=== PATIENT | female | born 1970 | race Caucasian/White ===

== ENCOUNTER 2016-11-23 08:00 | Inpatient (IN) | payer OTHER ==
[~2016-11-23] VITALS: Ht 139.7 cm; Wt 68.5 kg
[~2016-11-23 08:00] MED LIST: CARV12.579 PO; FER325 PO; FURO-110 PO; GLIM4TAB PO; HYDR-3671 PO; ISOS10TA2 PO; METF1000 PO; SITA100T8 PO; VALS40TA2 PO
[2016-11-23 09:31] VITALS: BMI 31.6
[2016-11-25 09:44] LABS: BASOPHIL # 0.1 10^3/ul (0.0-0.1); BASOPHILS % 0.9 % (0.0-2.0); EOSINOPHILS # 0.1 10^3/ul (0.0-0.5); EOSINOPHILS % 1.5 % (0.0-7.0); HEMATOCRIT 31.5 % (37.0-47.0); HEMOGLOBIN 10.3 g/dl (12.0-16.0); LYMPHOCYTES # 2.2 10^3/ul (0.8-2.9); LYMPHOCYTES % 27.6 % (15.0-51.0); MEAN CORPUSCULAR HEMOGLOBIN 26.4 pg (29.0-33.0); MEAN CORPUSCULAR HGB CONC 32.8 g/dl (32.0-37.0); MEAN CORPUSCULAR VOLUME 80.3 fl (82.0-101.0); MEAN PLATELET VOLUME 8.5 fl (7.4-10.4); MONOCYTE # 0.4 10^3/ul (0.3-0.9); MONOCYTES % 5.3 % (0.0-11.0); NEUTROPHILS % 64.7 % (39.0-77.0); PLATELET COUNT 355 10^3/UL (140-440); RED BLOOD COUNT 3.92 10^6/ul (4.20-5.40); RED CELL DISTRIBUTION WIDTH 14.9 % (11.5-14.5); UNCORRECTED WBC 7.8 10^3/ul (4.8-10.8); WHITE BLOOD COUNT 7.8 10^3/ul (4.8-10.8)
[2016-11-25 09:47] LABS: ADD UMIC YES; URINE BILIRUBIN (Dip) NEGATIVE (NEGATIVE); URINE BLOOD (Dip) 1+ (NEGATIVE); URINE COLOR LT. YELLOW (YELLOW); URINE GLUCOSE (Dip) NEGATIVE (NEGATIVE); URINE KETONES (Dip) NEGATIVE (NEGATIVE); URINE LEUKOCYTE ESTERASE (Dip) NEGATIVE (NEGATIVE); URINE NITRITE (Dip) NEGATIVE (NEGATIVE); URINE TOTAL PROTEIN (Dip) 2+ (NEGATIVE); URINE UROBILINOGEN (Dip) 0.2 E.U./dL (0.1-1.0)
[2016-11-25 09:53] LABS: ALBUMIN 4.1 g/dl (3.3-4.9); CONDITION 1; LH ANALYZER COMMENTS 1; POTASSIUM 4.8 mmol/L (3.5-5.1)
[2016-11-25 09:56] LABS: ALBUMIN/GLOBULIN RATIO 1.41; BILIRUBIN,INDIRECT 0.1 mg/dl (0-1.1); BILIRUBIN,TOTAL 0.1 mg/dl (0.2-1.3); CREATININE 0.69 mg/dl (0.44-1.00)
[2016-11-25 09:57] LABS: CALCIUM 9.4 mg/dl (8.4-10.2); INR 0.83; PROTIME 11.4 Sec (12.2-14.2); PT RATIO 0.9
[2016-11-25 09:58] LABS: PARTIAL THROMBOPLASTIN TIME 27.9 Sec (25.0-35.0)
--- NOTE | 2016-11-25 09:59 | RADRPT ---
PROCEDURE: XR Chest. CLINICAL INDICATION: Preop. TECHNIQUE: Single frontal chest x-ray. COMPARISON: 08/24/2016 FINDINGS: The lungs are clear. No focal opacification is seen. The cardiomediastinal silhouette is unremarka ble. The osseous structures are unremarkable. IMPRESSION: 1. There is no acute cardiopulmonary process. 2. Stable appearances when compared to the prior study. RPTAT: HH .Perez Mallory MD, MD Date Time Electronically viewed and signed by .Perez Mallory MD, on 11/25/2016 09:59 .B/
[2016-11-25 10:03] LABS: URINE RBCS 0-2 /HPF (0)
[2016-11-25 10:04] LABS: BACTERIA,URINE RARE
[2016-11-26] VITALS (19 sets, daily range): BP systolic 106–193; BP diastolic 57–94; PULSE 85–101; RESP 14–22; TEMP 96.9–98.9; Ht 139.7 cm; Wt 68.5 kg
[2016-11-26 12:22] LABS: ADD UMIC YES; URINE BILIRUBIN (Dip) NEGATIVE (NEGATIVE); URINE BLOOD (Dip) 1+ (NEGATIVE); URINE COLOR LT. YELLOW (YELLOW); URINE GLUCOSE (Dip) NEGATIVE (NEGATIVE); URINE KETONES (Dip) NEGATIVE (NEGATIVE); URINE LEUKOCYTE ESTERASE (Dip) NEGATIVE (NEGATIVE); URINE NITRITE (Dip) NEGATIVE (NEGATIVE); URINE TOTAL PROTEIN (Dip) 1+ (NEGATIVE); URINE UROBILINOGEN (Dip) 0.2 E.U./dL (0.1-1.0)
[2016-11-26 12:52] LABS: SQUAMOUS EPITHELIAL CELL,UR FEW; URINE RBCS 0-2 /HPF (0)
[2016-11-26] MEDS ORDERED: MAGNESIUM SULFATE (MG) 50% 10 ML INJ ONE (13:36)
[2016-11-26] MEDS ORDERED: AMINOCAPROIC ACID 5 GM INJ ONE (13:36)
[2016-11-26] MEDS ORDERED: NA BICARBONATE 8.4% 50 ML SYG ONE (13:36)
[2016-11-26] MEDS ORDERED: POTASSIUM CHLORIDE 40 MEQ INJ ONE (13:36)
[2016-11-26] MEDS ORDERED: CA CHLORIDE 10% 10 ML SYRINGE ONE (13:36)
[2016-11-26] MEDS ORDERED: FENTAnyl 250MCG INJ ONE (13:36)
[2016-11-26] MEDS ORDERED: ROCURONIUM 50 MG INJ ONE (13:36)
[2016-11-26] MEDS ORDERED: ETOMIDATE 20 MG INJ ONE (13:36)
[2016-11-26] MEDS ORDERED: DOPamine-D5W 1.6 MG/ML 250 ML ONE (13:36)
[2016-11-26] MEDS ORDERED: MANNITOL 25% 50 ML INJ ONE (13:36)
[2016-11-26] MEDS ORDERED: HEPARIN 1000 UNITS/ML 10 ML INJ ONE ×2 (13:36→13:42)
[2016-11-26] MEDS ORDERED: MIDAZOLAM 1 MG/ML 5 ML INJ ONE (13:36)
[2016-11-26] MEDS ORDERED: NITROGLYCERIN 50 MG/D5W 250 ML BTL ONE (13:36)
[2016-11-26] MEDS ORDERED: LIDOCAINE 2% (SDV) 5 ML INJ ONE (13:36)
[2016-11-26] MEDS ORDERED: PHENYLephrine 10 MG INJ ONE (13:36)
[2016-11-26] MEDS ORDERED: PROTAMINE 250 MG INJ ONE (13:36)
[2016-11-26] MEDS ORDERED: FUROSEMIDE 100 MG INJ ONE (13:36)
[2016-11-26] MEDS ORDERED: FUROSEMIDE 20 MG INJ ONE (13:36)
[2016-11-26] MEDS ORDERED: PHENYLephrine (100 MCG/ML) 5ML SYG ONE (13:36)
[2016-11-26] MEDS ORDERED: ALBUMIN HUMAN 25% 100 ML INJ ONE (13:36)
[2016-11-26] MEDS ORDERED: CEFAZOLIN 1 GM INJ ONE (13:36)
[2016-11-26] MEDS ORDERED: THROMBIN 5000 UNIT VIAL ONE (13:42)
[2016-11-26] MEDS ORDERED: VANCOMYCIN 1 GM INJ ONE (13:42)
[2016-11-26] MEDS ORDERED: GELATIN SIZE 100 SPONGE ONE (13:42)
[2016-11-26] MEDS ORDERED: INSULIN REGULAR, HUMAN 100 UNIT in SOD CHLORIDE 0.9% 99 ML IV SCH ×2 (14:00)
[2016-11-26] MEDS ORDERED: EPINEPHrine 4 MG in DEXTROSE 5% 246 ML IV SCH (14:00)
[2016-11-26] MEDS ORDERED: PHENYLephrine 20MG IN 250 ML 250 ML IV SCH (14:00)
--- NOTE | 2016-11-26 19:56 | RADRPT ---
PROCEDURE: XR Chest. CLINICAL INDICATION: Pulmonary artery catheter placement TECHNIQUE: AP Portable chest. COMPARISON: 11/25/2016 chest x-ray FINDINGS: The soft tissues and bones are remarkable for an endotracheal tube 3.1 cm above the guillaume. A right internal jugular Cordis and [place]-Tawanna catheter is present with tip in the pulmonary artery. The pa tient is status post median sternotomy. The appearance of a mediastinal drain is noted. Low lung v olumes are present. Bilateral interstitial crowding is noted. Mild cardiomegaly and interstitial e carroll is present. No pleural effusions or pneumothorax is present. IMPRESSION: 1. Tubes and lines as indicated above without pneumothorax 2. Low lung volumes and mild cardiogenic pulmonary venous hypertension. 3. Mild cardiomegaly and status post median sternotomy changes. RPTAT: HDC .Krissy Rivera MD, Date Time Electronically viewed and signed by .Krissy Rivera MD, on 11/26/2016 19:55 .C/
[2016-11-26] MEDS: INSULIN REGULAR, HUMAN 100 UNIT in SOD CHLORIDE 0.9% 99 ML IV SCH ×2 (20:00)
[2016-11-26 21:04] LABS: BASOPHILS % 0.4 % (0.0-2.0); EOSINOPHILS # 0.1 10^3/ul (0.0-0.5); EOSINOPHILS % 0.5 % (0.0-7.0); HEMATOCRIT 26.9 % (37.0-47.0); LYMPHOCYTES # 1.9 10^3/ul (0.8-2.9); LYMPHOCYTES % 15.6 % (15.0-51.0); MEAN CORPUSCULAR HEMOGLOBIN 28.1 pg (29.0-33.0); MEAN CORPUSCULAR HGB CONC 33.3 g/dl (32.0-37.0); MEAN CORPUSCULAR VOLUME 84.2 fl (82.0-101.0); MEAN PLATELET VOLUME 8.5 fl (7.4-10.4); MONOCYTE # 0.4 10^3/ul (0.3-0.9); MONOCYTES % 3.6 % (0.0-11.0); NEUTROPHIL # 9.5 10^3/ul (1.6-7.5); NEUTROPHILS % 79.9 % (39.0-77.0); PLATELET COUNT 213 10^3/UL (140-440); RED BLOOD COUNT 3.19 10^6/ul (4.20-5.40); UNCORRECTED WBC 11.9 10^3/ul (4.8-10.8); WHITE BLOOD COUNT 11.9 10^3/ul (4.8-10.8)
[2016-11-26 21:08] LABS: INR 1.15; PROTIME 14.7 Sec (12.2-14.2); PT RATIO 1.1
[2016-11-26 21:09] LABS: PARTIAL THROMBOPLASTIN TIME 30.6 Sec (25.0-35.0)
[2016-11-26 21:10] LABS: CONDITION 1; LH ANALYZER COMMENTS 1
[2016-11-26 21:11] LABS: ALBUMIN 3.8 g/dl (3.3-4.9)
[2016-11-26 21:14] LABS: ALBUMIN/GLOBULIN RATIO 1.65; BILIRUBIN,INDIRECT 0.6 mg/dl (0-1.1); BILIRUBIN,TOTAL 0.6 mg/dl (0.2-1.3); CREATININE 0.72 mg/dl (0.44-1.00); TOTAL PROTEIN 6.1 g/dl (6.1-8.1)
[2016-11-26 21:15] LABS: CALCIUM 9.3 mg/dl (8.4-10.2); MAGNESIUM 2.5 mg/dl (1.7-2.5); PHOSPHORUS 3.3 mg/dl (2.5-4.9)
[2016-11-26] MEDS ORDERED: INSULIN REGULAR, HUMAN 100 UNIT/1 ML 3ML VIAL IV SCH (21:30)
[2016-11-26] MEDS ORDERED: ONDANSETRON 4 MG INJ IV PRN (21:30)
[2016-11-26] MEDS ORDERED: HYDROmorphONE 1 MG/ML SYG IV PRN ×3 (21:30→22:00)
[2016-11-26] MEDS ORDERED: DOPamine-D5W 1.6 MG/ML 250 ML IV SCH (21:30)
--- NOTE | 2016-11-26 21:44 | RADRPT ---
PROCEDURE: Portable chest x-ray. CLINICAL INDICATION: Intubation. TECHNIQUE: Portable AP view of the chest. COMPARISON: 11/26/2016. FINDINGS: An endotracheal tube terminates 2.6 cm above the guillaume. The tip of a right IJ [place]-Tawanna catheter pr ojects over the left hilar region. There are bilateral chest tubes and mediastinal drain in place. T here are low lung volumes, limiting evaluation of the pulmonary vessels. Trace left apical pneumotho rax is noted. The cardiac silhouette is magnified. No pleural effusion is seen. IMPRESSION: 1. Endotracheal tube 2.6 cm above the guillaume. 2. Additional lines and tubes as described in the findings. 3. Trace left apical pneumothorax. 4. Low lung volumes. 5. Median sternotomy. RPTAT: HTAR .Forest Fletcher MD, Date Time Electronically viewed and signed by .Forest Fletcher MD, on 11/26/2016 21:44 .R/
[2016-11-26] MEDS ORDERED: DEXTROSE 50% 50 ML SYRINGE IV PRN ×2 (22:00)
[2016-11-26] MEDS: HYDROmorphONE 1 MG/ML SYG IV PRN (22:45)
[2016-11-26] MEDS: CEFAZOLIN 1 GM/50 ML (PMX) 50 ML IVPB SCH (22:46)
[2016-11-26] MEDS: ACCUCHECK XX SCH (23:14)
[2016-11-26] MEDS: NITROGLYCERIN 50 MG/D5W (PMX) 250 ML IV SCH (23:15)
[2016-11-27] VITALS (90 sets, daily range): BP systolic 89–140; BP diastolic 28–74; PULSE 80–101; RESP 14–39; TEMP 98.9–100.6
--- NOTE | 2016-11-27 | OPR ---
DATE OF OPERATION: PREOPERATIVE DIAGNOSIS: Severe aortic stenosis. POSTOPERATIVE DIAGNOSIS: Severe aortic stenosis. PROCEDURE: 1. Aortic valve replacement, 23 mm bioprosthetic Medtronic valve. 2. Thymectomy. SURGEON: Joseline Castle MD RENAL SOCIAL WORKER: Dickson Berry MD SECOND WATERPROOFING MACHINE OPERATOR: ____ ANESTHESIA: General. CONSENT: Risks, benefits, complications, alternative therapies explained to the patient and the fam brodie, consent obtained. OPERATIVE TECHNIQUE: The patient was placed in supine position, prepped and draped in usual sterile fashion. Time-out was called, antibiotic was given and I started. Sternotomy incision was made from the sternal notch down to xiphoid process. The sternum was opened in the mid aspect of the sternum. Subsequently, the sternal retractor was placed. Thymus tissue w as removed. Pericardium was then opened. The patient was fully heparinized. Cannulation sutures, all 3-0 Prolene with pledgets were applied to distal ascending aorta, body of the right atrium, righ t atrial appendage. After adequate documentation of ACT, the aorta was cannulated followed by 2-sta ge venous cannula, anterior and retrograde cardioplegia cannula and also left ventricular vent. The heart was placed on cardiopulmonary bypass. Cross clamp was applied, and heart was arrested using anterior and retrograde cardioplegia given every 15 to 20 minutes supplemented by topical slush to t he surface of the heart and cardioplegia given to the ostia of the coronary when the aorta was open. The aorta was then opened 1 cm superior to the coronary ostium. The aortic valve appeared to be hig hly calcified, tricuspid. It was removed, decalcified, sized at 23 mm. Twelve pledgeted sutures we re placed with the pledgets at the ventricular border of the annulus. They were put into the biopro sthetic Medtronic tissue valve, sutures tied. Aorta was closed using 2-layer suture between a Teflo n felt. Head was placed in steep Trendelenburg position, crossclamp removed, the heart and the aort a de-aired. Heart came off cardiopulmonary bypass without any difficulty. Two ventricular wires __ __ and atrial wires were placed, brought out through a lower stab wound, secured to skin using 2-0 s ilk sutures. No evidence of any major bleeding was noted. The sternum was closed using cable syste m x4. Line[place] alba and the deep tissues were irrigated again using antibiotic solution and closed in 2 layers of #1 Vicryl suture for the deep, 2-0 Vicryl suture for subcutaneous and 4-0 Monocryl sutur e for running subcuticular skin closure. The patient tolerated procedure well. Dictated By: JOSELINE GOTTI/JOAQUIM Conf#: [id number] DID#: [id number]
[2016-11-27] MEDS: HYDROmorphONE 1 MG/ML SYG IV PRN ×3 (00:07→22:28)
[2016-11-27] MEDS: ACCUCHECK XX SCH ×24 (00:20→23:00)
[2016-11-27] MEDS: POTASSIUM CHLORIDE 40 MEQ in DEXTROSE 5%-0.225% NACL 1,000 ML IV SCH ×2 (00:34→16:23)
[2016-11-27] MEDS: POTASSIUM CHLORIDE 50 ML IVPB PRN ×4 (00:34→04:35)
[2016-11-27 02:38] LABS: BASOPHILS % 0.1 % (0.0-2.0); EOSINOPHILS % 0.1 % (0.0-7.0); HEMATOCRIT 29.1 % (37.0-47.0); HEMOGLOBIN 9.8 g/dl (12.0-16.0); LYMPHOCYTES # 0.9 10^3/ul (0.8-2.9); LYMPHOCYTES % 6.5 % (15.0-51.0); MEAN CORPUSCULAR HEMOGLOBIN 28.2 pg (29.0-33.0); MEAN CORPUSCULAR HGB CONC 33.5 g/dl (32.0-37.0); MEAN PLATELET VOLUME 8.7 fl (7.4-10.4); MONOCYTES % 7.1 % (0.0-11.0); NEUTROPHIL # 11.9 10^3/ul (1.6-7.5); NEUTROPHILS % 86.2 % (39.0-77.0); PLATELET COUNT 227 10^3/UL (140-440); RED BLOOD COUNT 3.46 10^6/ul (4.20-5.40); RED CELL DISTRIBUTION WIDTH 16.5 % (11.5-14.5); UNCORRECTED WBC 13.8 10^3/ul (4.8-10.8); WHITE BLOOD COUNT 13.8 10^3/ul (4.8-10.8)
[2016-11-27 02:42] LABS: CONDITION 1; LH ANALYZER COMMENTS 1
[2016-11-27 02:49] LABS: ALBUMIN 3.6 g/dl (3.3-4.9); POTASSIUM 3.6 mmol/L (3.5-5.1)
[2016-11-27 02:51] LABS: CREATININE 0.86 mg/dl (0.44-1.00)
[2016-11-27 02:52] LABS: ALBUMIN/GLOBULIN RATIO 1.56; BILIRUBIN,INDIRECT 0.7 mg/dl (0-1.1); BILIRUBIN,TOTAL 0.7 mg/dl (0.2-1.3); CALCIUM 9.2 mg/dl (8.4-10.2); MAGNESIUM 2.1 mg/dl (1.7-2.5); TOTAL PROTEIN 5.9 g/dl (6.1-8.1)
[2016-11-27 02:54] LABS: INR 1.1; PROTIME 14.2 Sec (12.2-14.2); PT RATIO 1.1
[2016-11-27 02:55] LABS: PARTIAL THROMBOPLASTIN TIME 30.3 Sec (25.0-35.0)
[2016-11-27] MEDS ORDERED: MAGNESIUM SULFATE 1 GM/D5W 100 ML IVPB PRN (04:30)
[2016-11-27] MEDS ORDERED: PROPOFOL 100 ML IV SCH (04:30)
[2016-11-27] MEDS: CEFAZOLIN 1 GM/50 ML (PMX) 50 ML IVPB SCH ×2 (05:52→14:24)
[2016-11-27] MEDS: PANTOPRAZOLE 40 MG INJ IV SCH (05:53)
[2016-11-27 06:06] LABS: BASOPHILS % 0.1 % (0.0-2.0); HEMATOCRIT 28.7 % (37.0-47.0); HEMOGLOBIN 9.7 g/dl (12.0-16.0); LYMPHOCYTES # 0.7 10^3/ul (0.8-2.9); LYMPHOCYTES % 6.5 % (15.0-51.0); MEAN CORPUSCULAR HEMOGLOBIN 28.4 pg (29.0-33.0); MEAN CORPUSCULAR HGB CONC 33.8 g/dl (32.0-37.0); MEAN CORPUSCULAR VOLUME 83.9 fl (82.0-101.0); MEAN PLATELET VOLUME 8.6 fl (7.4-10.4); MONOCYTE # 0.8 10^3/ul (0.3-0.9); MONOCYTES % 7.4 % (0.0-11.0); NEUTROPHIL # 9.7 10^3/ul (1.6-7.5); PLATELET COUNT 207 10^3/UL (140-440); RED BLOOD COUNT 3.42 10^6/ul (4.20-5.40); RED CELL DISTRIBUTION WIDTH 15.8 % (11.5-14.5); UNCORRECTED WBC 11.3 10^3/ul (4.8-10.8); WHITE BLOOD COUNT 11.3 10^3/ul (4.8-10.8)
[2016-11-27 06:27] LABS: CONDITION 1; LH ANALYZER COMMENTS 1
[2016-11-27] MEDS: NITROGLYCERIN 50 MG/D5W (PMX) 250 ML IV SCH ×3 (06:27→22:29)
[2016-11-27 06:32] LABS: INR 1.11; PROTIME 14.3 Sec (12.2-14.2); PT RATIO 1.1
[2016-11-27 06:33] LABS: PARTIAL THROMBOPLASTIN TIME 27.6 Sec (25.0-35.0)
[2016-11-27 06:36] LABS: ALBUMIN 3.6 g/dl (3.3-4.9)
[2016-11-27 06:37] LABS: POTASSIUM 4.2 mmol/L (3.5-5.1)
[2016-11-27 06:39] LABS: ALBUMIN/GLOBULIN RATIO 1.56; BILIRUBIN,INDIRECT 0.8 mg/dl (0-1.1); BILIRUBIN,TOTAL 0.8 mg/dl (0.2-1.3); CREATININE 0.89 mg/dl (0.44-1.00); TOTAL PROTEIN 5.9 g/dl (6.1-8.1)
[2016-11-27 06:40] LABS: CALCIUM 9.2 mg/dl (8.4-10.2)
[2016-11-27 06:58] LABS: Arterial COHb 0.3 % (0.0-3.0); Arterial Fraction of Oxyhgb 55.6 % (93.0-99.0); Arterial MetHb 0.2 % (0.0-1.5); Arterial Total Hemglobin 10.8 g/dl (12.0-18.0); MODE VENT - AC; MetHgb Mixed Venous 0.2 %; Mixed Venous COHb 0.3 %; Mixed Venous Fraction OxyHgb 55.6 %; Mixed Venous Oxygen Sat 55.9 mmHG (65.0-75.0); Mixed Venous Total Hemglobin 10.8 g/dl; Sample Type BLMV
[2016-11-27 06:58] LABS: AADO2 Arterial 354.2 mmHg (7.0-24.0); Arterial Base Excess 2.1 mmol/L (-3.0-3); Arterial COHb 0.3 % (0.0-3.0); Arterial Fraction of Oxyhgb 97.3 % (93.0-99.0); Arterial HCO3 25.5 mmol/L (22.0-26.0); Arterial MetHb 0.2 % (0.0-1.5); Arterial Total Hemglobin 10.7 g/dl (12.0-18.0); MODE VENT - AC
[2016-11-27 08:37] LABS: AADO2 Arterial 111.8 mmHg (7.0-24.0); Arterial Base Excess 0.5 mmol/L (-3.0-3); Arterial COHb 0.3 % (0.0-3.0); Arterial Fraction of Oxyhgb 97.5 % (93.0-99.0); Arterial HCO3 23.4 mmol/L (22.0-26.0); Arterial MetHb 0.3 % (0.0-1.5); Arterial Total Hemglobin 9.6 g/dl (12.0-18.0); MODE VENT - AC
[2016-11-27] MEDS: INSULIN REGULAR, HUMAN 100 UNIT in SOD CHLORIDE 0.9% 99 ML IV SCH ×4 (09:47→22:43)
--- NOTE | 2016-11-27 10:10 | RADRPT ---
PROCEDURE: XR Chest 1 View. CLINICAL INDICATION: Shortness of breath, intubated TECHNIQUE: AP view of the chest were obtained. COMPARISON: November 26, 2016 FINDINGS: The cardiomediastinal silhouette is within normal limits. Median sternotomy wires overlie the heart. Endotracheal tube is stable. [place]-Tawanna catheter is unchanged. Mediastinal drain is unchanged. Th e lungs are hypoinflated. Atelectasis is noted at the lung bases. Bilateral chest tubes are stable. No pneumothorax is seen. No consolidations are seen. Osseous structures are intact. IMPRESSION: Stable support lines and tubes. Stable bilateral chest tubes. No visualized pneumothoraces. Hypoinflated lungs with atelectasis at the lung bases. RPTAT: AA .Franc Wyatt MD, Date Time Electronically viewed and signed by .Franc Wyatt MD, on 11/27/2016 10:10 .P/
[2016-11-27 10:33] LABS: AADO2 Arterial 88.1 mmHg (7.0-24.0); Arterial Base Excess 1.4 mmol/L (-3.0-3); Arterial COHb 0.3 % (0.0-3.0); Arterial Fraction of Oxyhgb 94.7 % (93.0-99.0); Arterial HCO3 25.6 mmol/L (22.0-26.0); Arterial MetHb 0.2 % (0.0-1.5); Arterial Total Hemglobin 10.7 g/dl (12.0-18.0); Blood Gas PS 10; MODE VENT - CPAP
[2016-11-27] MEDS ORDERED: ALBUMIN HUMAN 5% 250 ML ONE (14:52)
[2016-11-27] MEDS ORDERED: ALBUMIN HUMAN 5% 250 ML IV ONE (15:00)
--- NOTE | 2016-11-27 15:35 | CONS ---
Date/Time of Note Date/Time of Note DATE: 11/27/16 TIME: 15:28 Assessment/Plan Assessment/Plan Problems: (1) Non-ischemic cardiomyopathy (2) Bioprosthetic aortic valve replacement during current hospitalization Additional Assessment/Plan Bioprosthetic aortic wall replacement Nonischemic cardiomyopathy Right now patient's blood pressure is 114/80, she is completely paced dependent post surgery. Avoid any beta blockers at this time if he needs to start with and start patient with a lisinopril 2.5 mg for now and add hydralazine as needed with Imdur I would repeat echo tomorrow to look at the valve and its function Patient has complete heart block post surgery likely secondary to edema we have awake and most likely patient will recover from it. Thank you Dr. Mcnamara for care for my patient. and consultation. Consultation Date/Type/Reason Admit Date/Time Nov 26, 2016 at 10:43 Date of Consultation: Nov 27, 2016 Type of Consultation: Cardiology Reason for Consultation Post AVR Hx of Present Illness Patient is very well-known to me from outpatient, She asked for me to see her in the hospital. she came to me as second opinion after C had coronary angiography at [facility] with echo yet that showed known ischemic cardiomyopathy with LV ejection fraction of 30% severe critical aortic stenosis. I had a JLUIS done at my old office and showed severe aortic stenosis confirmed I had a discussion with the patient that C will require surgery finally she underwent bioprosthetic aortic wall replacement by Dr. Mcnamara last night it 23 mm porcine wire was placed in our position. Patient is in ICU extubated alert and awake being paced at 80 bpm 100% underlying rhythm is junctional escape with complete heart block most likely secondary to post aVR edema around the area. Constitutional: no complaints Eyes: no complaints ENT: no complaints Past Medical History Medical History: angina, congestive heart failure Social History Smoking Status: Never smoker Exam/Review of Systems Vital Signs Vitals Vital Signs Date Time Temp Pulse Resp B/P Pulse Ox O2 Delivery O2 Flow Rate FiO2 11/27/16 15:00 100.0 80 28 111/66 98 11/27/16 09:30 30 11/26/16 12:23 Room Air Intake and Output 11/26/16 11/26/16 11/27/16 15:00 23:00 07:00 Intake Total 4041.5 ml 1839 ml Output Total 3825 ml 687 ml Balance 216.5 ml 1152 ml Exam Constitutional: alert, oriented, well developed Psych: no complaints Head: normocephalic Eyes: nl conjunctiva ENMT: nl external ears & nose Neck: non-tender, supple Respiratory: clear to auscultation Cardiovascular: regular rate and rhythm Gastrointestinal: nl liver, spleen, soft Musculoskeletal: nl extremities to inspection Results Result Diagram: 11/27/16 0540 11/27/16 0540 Results 24 hrs Laboratory Tests Test 11/26/16 19:54 11/26/16 20:02 11/26/16 20:54 11/26/16 21:10 Bedside Glucose 120 Activated Partial Thromboplast Time 30.6 Alanine Aminotransferase (ALT/SGPT) 23 Albumin 3.8 Albumin/Globulin Ratio 1.65 Alkaline Phosphatase 31 L Anion Gap 17 H Aspartate Amino Transf (AST/SGOT) 46 Basophils # 0.0 Basophils % 0.4 Blood Morphology Comment Blood Urea Nitrogen 18 Calcium Level 9.3 Carbon Dioxide Level 27 Chloride Level 105 Creatinine 0.72 Direct Bilirubin 0.00 Eosinophils # 0.1 Eosinophils % 0.5 Globulin 2.30 Glucose Level 101 # Hematocrit 26.9 L Hemoglobin 9.0 L INR International Normalized Ratio 1.15 Indirect Bilirubin 0.6 Lymphocytes # 1.9 Lymphocytes % 15.6 Magnesium Level 2.5 Mean Corpuscular Hemoglobin 28.1 L Mean Corpuscular Hemoglobin Concent 33.3 Mean Corpuscular Volume 84.2 Mean Platelet Volume 8.5 Monocytes # 0.4 Monocytes % 3.6 Neutrophils # 9.5 H Neutrophils % 79.9 H Nucleated Red Blood Cells # 0.0 Nucleated Red Blood Cells % 0.0 Phosphorus Level 3.3 Platelet Count 213 # Potassium Level 3.0 L Prothrombin Time 14.7 #H Prothrombin Time Ratio 1.1 Red Blood Count 3.19 L Red Cell Distribution Width 16.0 H Sodium Level 146 H Total Bilirubin 0.6 Total Protein 6.1 White Blood Count 11.9 #H Arterial Blood Oxygen Saturation 55.9 L 97.8 Rehan Test N/A N/A Arterial Blood Gas Puncture Site A-Line A-Line Arterial Blood Carboxyhemoglobin 0.3 0.3 Arterial Blood Date Drawn 11/26/2016 8:55:00 PM 11/26/2016 8:55:00 PM Arterial Blood Methemoglobin 0.2 0.2 Arterial Blood pO2 (Temp corrected) 26.1 *L 106.9 H Blood Gas Actual Respiration Rate 17 17 Blood Gas Inspiratory Pressure 26.0 26.0 Blood Gas Low PEEP Setting 5.0 5.0 Blood Gas Modality VENT - AC VENT - AC Blood Gas Notified Time 11/26/2016 9:11:28 PM 11/26/2016 9:17:00 PM Blood Gas Notified Whom KM KM Blood Gas Respiration Rate 14.0 14.0 Blood Gas Specimen Source BLMV Blood arterial Blood Gas Temperature 37.0 37.0 Blood Gas Tidal Volume 500.0 500.0 FiO2 70.0 70.0 Mixed Venous Bld Carboxyhemoglobin 0.3 Mixed Venous Blood Methemoglobin 0.2 Mixed Venous Blood O2 Saturation 55.9 L Mixed Venous Blood Oxyhemoglobin 55.6 Mixed Venous Blood PO2 26.1 L Mixed Venous Blood Total Hemoglobin 10.8 Oxyhemoglobin Percent 55.6 L 97.3 Total Hemoglobin 10.8 L 10.7 L Arterial Blood HCO3 25.5 Arterial Blood Base Excess 2.1 Arterial Blood pCO2 (Temp correct) 35.4 Arterial Blood pH (Temp corrected) 7.476 H Blood Gas A-a O2 Differential 354.2 H Test 11/26/16 21:19 11/26/16 22:53 11/27/16 00:19 11/27/16 01:09 Bedside Glucose 82 163 247 H 217 Test 11/27/16 02:07 11/27/16 02:25 11/27/16 03:07 11/27/16 04:07 Bedside Glucose 167 134 147 Activated Partial Thromboplast Time 30.3 Alanine Aminotransferase (ALT/SGPT) 22 Albumin 3.6 Albumin/Globulin Ratio 1.56 Alkaline Phosphatase 35 L Anion Gap 16 Aspartate Amino Transf (AST/SGOT) 49 H Basophils # 0.0 Basophils % 0.1 Blood Morphology Comment Blood Urea Nitrogen 22 H Calcium Level 9.2 Carbon Dioxide Level 28 Chloride Level 106 Creatinine 0.86 Direct Bilirubin 0.00 Eosinophils # 0.0 Eosinophils % 0.1 Globulin 2.30 Glucose Level 149 # Hematocrit 29.1 L Hemoglobin 9.8 L INR International Normalized Ratio 1.10 Indirect Bilirubin 0.7 Lymphocytes # 0.9 Lymphocytes % 6.5 L Magnesium Level 2.1 Mean Corpuscular Hemoglobin 28.2 L Mean Corpuscular Hemoglobin Concent 33.5 Mean Corpuscular Volume 84.0 Mean Platelet Volume 8.7 Monocytes # 1.0 H Monocytes % 7.1 Neutrophils # 11.9 H Neutrophils % 86.2 H Nucleated Red Blood Cells # 0.0 Nucleated Red Blood Cells % 0.0 Platelet Count 227 Potassium Level 3.6 Prothrombin Time 14.2 Prothrombin Time Ratio 1.1 Red Blood Count 3.46 L Red Cell Distribution Width 16.5 H Sodium Level 146 H Total Bilirubin 0.7 Total Protein 5.9 L White Blood Count 13.8 H Test 11/27/16 05:40 11/27/16 06:02 11/27/16 07:00 11/27/16 08:00 Activated Partial Thromboplast Time 27.6 Alanine Aminotransferase (ALT/SGPT) 26 Albumin 3.6 Albumin/Globulin Ratio 1.56 Alkaline Phosphatase 38 L Anion Gap 15 Aspartate Amino Transf (AST/SGOT) 51 H Basophils # 0.0 Basophils % 0.1 Blood Morphology Comment Blood Urea Nitrogen 22 H Calcium Level 9.2 Carbon Dioxide Level 29 Chloride Level 105 Creatinine 0.89 Direct Bilirubin 0.00 Eosinophils # 0.0 Eosinophils % 0.0 Globulin 2.30 Glucose Level 130 Hematocrit 28.7 L Hemoglobin 9.7 L INR International Normalized Ratio 1.11 Indirect Bilirubin 0.8 Lymphocytes # 0.7 L Lymphocytes % 6.5 L Magnesium Level 2.0 Mean Corpuscular Hemoglobin 28.4 L Mean Corpuscular Hemoglobin Concent 33.8 Mean Corpuscular Volume 83.9 Mean Platelet Volume 8.6 Monocytes # 0.8 Monocytes % 7.4 Neutrophils # 9.7 H Neutrophils % 86.0 H Nucleated Red Blood Cells # 0.0 Nucleated Red Blood Cells % 0.0 Platelet Count 207 Potassium Level 4.2 Prothrombin Time 14.3 H Prothrombin Time Ratio 1.1 Red Blood Count 3.42 L Red Cell Distribution Width 15.8 H Sodium Level 145 H Total Bilirubin 0.8 Total Protein 5.9 L White Blood Count 11.3 H Bedside Glucose 113 161 Arterial Blood HCO3 23.4 Arterial Blood Base Excess 0.5 Arterial Blood Oxygen Saturation 98.1 H Rehan Test N/A Arterial Blood Gas Puncture Site A-Line Arterial Blood Carboxyhemoglobin 0.3 Arterial Blood Date Drawn 11/27/2016 8:10:44 AM Arterial Blood Methemoglobin 0.3 Arterial Blood pCO2 (Temp correct) 31.2 L Arterial Blood pH (Temp corrected) 7.492 H Arterial Blood pO2 (Temp corrected) 137.5 H Blood Gas A-a O2 Differential 111.8 H Blood Gas Actual Respiration Rate 15 Blood Gas Low PEEP Setting 5.0 Blood Gas Modality VENT - AC Blood Gas Notified Time 11/27/2016 8:37:21 AM Blood Gas Notified Whom JLD Blood Gas Respiration Rate 14.0 Blood Gas Specimen Source Blood arterial Blood Gas Temperature 37.0 Blood Gas Tidal Volume 500.0 FiO2 40.0 Oxyhemoglobin Percent 97.5 Total Hemoglobin 9.6 L Test 11/27/16 10:02 11/27/16 10:30 11/27/16 12:01 11/27/16 13:50 Bedside Glucose 139 113 130 Arterial Blood HCO3 25.6 Arterial Blood Base Excess 1.4 Arterial Blood Oxygen Saturation 95.2 Rehan Test N/A Arterial Blood Gas Puncture Site A-Line Arterial Blood Carboxyhemoglobin 0.3 Arterial Blood Date Drawn 11/27/2016 10:20:30 AM Arterial Blood Methemoglobin 0.2 Arterial Blood pCO2 (Temp correct) 38.5 Arterial Blood pH (Temp corrected) 7.440 Arterial Blood pO2 (Temp corrected) 80.6 Blood Gas A-a O2 Differential 88.1 H Blood Gas Actual Respiration Rate 30 Blood Gas Low PEEP Setting 5.0 Blood Gas Modality VENT - CPAP Blood Gas Notified Time 11/27/2016 10:33:30 AM Blood Gas Notified Whom RT Blood Gas Pressure Support 10 Blood Gas Specimen Source Blood arterial Blood Gas Temperature 37.0 FiO2 30.0 Oxyhemoglobin Percent 94.7 Total Hemoglobin 10.7 L Medications Medications Current Medications Potassium Chloride 40 meq/ Dextrose/Sodium Chloride 1,020 ml @ 60 mls/hr Q17H IV Last administered on 11/27/16 00:34; Admin Dose 60 MLS/HR; Start 11/26/16 at 23:00 Nitroglycerin/ Dextrose 250 ml @ 1.5 mls/hr TITRATE IV Last administered on 06:27; Admin Dose 45 MLS/HR; Start 11/26/16 at 21:30 Dopamine HCl/ Dextrose 250 ml @ 5.138 mls/ hr TITRATE IV ; Start 11/26/16 at 21: 30 Hydromorphone HCl (Dilaudid) 0.2 mg Q1H PRN IV PAIN LEVEL 1-5 Last administered on 11/27/16 11:19; Admin Dose 0.2 MG; Start 11/26/16 at 21:30 Hydromorphone HCl (Dilaudid) 0.4 mg Q1H PRN IV PAIN LEVEL 6-10; Start 11/26/16 at 21:30 Ondansetron HCl (Zofran Inj) 2 mg ONCE PRN IV Nausea; Start 11/26/16 at 21:30 Hydromorphone HCl (Dilaudid) 0.2 mg Q15M PRN IV PAIN LEVEL 1-5; Start 11/26/16 at 22:00 Hydromorphone HCl (Dilaudid) 0.4 mg Q15M PRN IV PAIN LEVEL 6-10 Last administered on 11/27/16 00:07; Admin Dose 0.4 MG; Start 11/26/16 at 22:00 Diagnostic Test (Pha) (Accucheck) 1 ea Q1H XX Last administered on 11/27/16 14 :00; Admin Dose 1 EA; Start 11/26/16 at 23:00 Dextrose (D50w Syringe) 25 ml Q15M PRN IV Till BS 80 mg/dL or above x2; Start 11/26/16 at 22:00 Dextrose 50 ml 50 ml Q15M PRN IV Till BS 80 mg/dL or above x2; Start 11/26/16 at 22:00 Magnesium Sulfate/ Dextrose (Magnesium Sulfate 1 Gm/D5W) 100 ml @ 100 mls/hr PRN PRN IVPB Mag < 2; Start 11/27/16 at 04:30 Pantoprazole 40 mg 40 mg DAILY@06 IV Last administered on 11/27/16 05:53; Admin Dose 40 MG; Start 11/27/16 at 06:00 Albumin Human 250 ml @ 250 mls/hr ONCE ONCE IV ; Start 11/27/16 at 15:00; Stop 11/27/16 at 15:59 MANUEL HOOVER MD Nov 27, 2016 15:35
--- NOTE | 2016-11-27 16:15 | QN ---
Documentation Comment [id number] KILLIAN FLORES MD Nov 27, 2016 16:15
--- NOTE | 2016-11-27 17:42 | CONS ---
DATE OF ADMISSION: 11/26/2016 DATE OF CONSULTATION: Thank you, Dr. Castle, for kindly asking me to see this patient in consultation. HISTORY OF PRESENT ILLNESS: The patient with history of diabetes mellitus, hypertension, aortic stenosis, history of , underwent aortic valve replacement with 23 mm bioprosthetic Medtronic valve, thymectomy. The patient is currently extubated and had a chest tube and noted to have a hematocrit 31.5 , repeat , WBC 11.3. The patient has sodium 145, potassium 4.2, BUN 22, creatinine 1.89, and consultation is obtained. PAST MEDICAL HISTORY: Hypertension, CHF, low ejection fraction, diabetes mellitus, aortic valve stenosis, aortic valve replacement. ALLERGY HISTORY: NEGATIVE. FAMILY HISTORY: Negative. SOCIAL HISTORY: Negative. MEDICATION HISTORY: At home, patient is on: 1. Coreg. 2. Iron sulfate. 3. Lasix. 4. Amaryl. 5. Hydralazine. 6. Isosorbide. 7. Metformin. 8. Januvia. 9. Diovan. REVIEW OF SYSTEMS: HEENT: Unremarkable. RESPIRATORY: Mild chest wall pain, short of breath. ABDOMEN: Unremarkable. EXTREMITIES: No swelling. CENTRAL NERVOUS SYSTEM: No numbness _ tingling. PHYSICAL EXAMINATION: GENERAL: The patient is awake and alert. VITAL SIGNS: Pulse of 80, blood pressure 127/55. HEENT: Head is atraumatic, normocephalic. Pupils equal, reactive to light. NECK: Supple. No JVD. LUNGS: Decreased air entry. Rhonchi noted and dressing noted in the chest wall area. External pacemaker noted. CARDIOVASCULAR: S1, S2 normal. ABDOMEN: Soft. Bowel sounds present. No palpable mass, no hepatosplenomegaly. Surgical scar noted in the abdominal area. EXTREMITIES: There is no cyanosis, clubbing or edema. CENTRAL NERVOUS SYSTEM: The patient is awake, alert. No focal deficit. LABORATORY DATA: Sodium 145, potassium 4.2. EKG shows pacemaker rhythm. IMPRESSION: 1. Aortic valve stenosis, status post aortic valve replacement. 2. Diabetes mellitus. 3. Hypertension. 4. Renal insufficiency. 5. Nonischemic cardiomyopathy. 6. Bioprosthetic aortic valve replacement. PLAN: Follow recommendation from outdoor adventure leader and Cardiothoracic Surgery, follow laboratory data. The patient is on insulin. Follow leukocytosis and anemia. The patient currently on Protonix, magnesium sulfate, IV fluid. The patient is on Dilaudid, potassium. The patient is on nitro. Orders were done. Dictated By: KILLIAN FLORES MD BS/NTS Conf#: [id number] DID#: [id number]
[2016-11-27] MEDS: HYDROCODONE/APAP (5/325) TAB PO PRN (20:09)
[2016-11-28] VITALS (30 sets, daily range): BP systolic 90–169; BP diastolic 53–112; PULSE 80–85; RESP 19–42
[2016-11-28] MEDS: ACCUCHECK XX SCH ×5 (01:00→23:18)
[2016-11-28] MEDS ORDERED: GLUCOSE GEL 15 GRAM TUBE PO PRN ×2 (02:45)
[2016-11-28] MEDS ORDERED: DEXTROSE 50% 50 ML SYRINGE IV PRN ×4 (02:45→22:00)
[2016-11-28] MEDS ORDERED: GLUCOSE GEL 15 GRAM TUBE BUCCAL PRN (02:45)
[2016-11-28] MEDS ORDERED: GLUCAGON 1 MG INJ IM PRN (02:45)
[2016-11-28] MEDS: HYDROCODONE/APAP (5/325) TAB PO PRN ×4 (04:58→19:05)
[2016-11-28] MEDS: PANTOPRAZOLE 40 MG INJ IV SCH (05:00)
[2016-11-28 05:33] LABS: BASOPHILS % 0.2 % (0.0-2.0); EOSINOPHILS % 0.1 % (0.0-7.0); HEMATOCRIT 29.4 % (37.0-47.0); HEMOGLOBIN 9.9 g/dl (12.0-16.0); LYMPHOCYTES # 1.7 10^3/ul (0.8-2.9); LYMPHOCYTES % 10.4 % (15.0-51.0); MEAN CORPUSCULAR HEMOGLOBIN 28.6 pg (29.0-33.0); MEAN CORPUSCULAR HGB CONC 33.6 g/dl (32.0-37.0); MEAN CORPUSCULAR VOLUME 85.1 fl (82.0-101.0); MONOCYTE # 1.6 10^3/ul (0.3-0.9); NEUTROPHIL # 13.1 10^3/ul (1.6-7.5); NEUTROPHILS % 79.3 % (39.0-77.0); PLATELET COUNT 182 10^3/UL (140-440); RED BLOOD COUNT 3.46 10^6/ul (4.20-5.40); RED CELL DISTRIBUTION WIDTH 16.7 % (11.5-14.5); UNCORRECTED WBC 16.5 10^3/ul (4.8-10.8); WHITE BLOOD COUNT 16.5 10^3/ul (4.8-10.8)
[2016-11-28 05:40] LABS: CONDITION 1; LH ANALYZER COMMENTS 1
[2016-11-28 05:51] LABS: ALBUMIN 3.6 g/dl (3.3-4.9)
[2016-11-28 05:52] LABS: POTASSIUM 4.3 mmol/L (3.5-5.1)
[2016-11-28 05:54] LABS: ALBUMIN/GLOBULIN RATIO 1.38; BILIRUBIN,INDIRECT 0.4 mg/dl (0-1.1); BILIRUBIN,TOTAL 0.4 mg/dl (0.2-1.3); CREATININE 1.09 mg/dl (0.44-1.00); TOTAL PROTEIN 6.2 g/dl (6.1-8.1)
[2016-11-28 05:55] LABS: CALCIUM 8.6 mg/dl (8.4-10.2)
[2016-11-28] MEDS: INSULIN ASPART [NOVOLOG] 3 ML PEN SC SCH ×4 (08:11→20:20)
[2016-11-28] MEDS: POTASSIUM CHLORIDE 40 MEQ in DEXTROSE 5%-0.225% NACL 1,000 ML IV SCH ×3 (09:00→10:23)
--- NOTE | 2016-11-28 10:33 | PN ---
Date/Time of Note Date/Time of Note DATE: 11/28/16 TIME: 10:31 Assessment/Plan Lines/Catheters IV Catheter Type (from Nrsg): Peripheral IV Nelson in Place (from Nrsg): Yes Assessment/Plan Chief Complaint/Hosp Course SP AVR lines DEed will continue CT sxn ambulate monitor WBC pulm toilet Problems: Subjective 24 Hr Interval Summary Constitutional: improved Pain Control: mild Exam/Review of Systems Vital Signs Vitals Vital Signs Date Time Temp Pulse Resp B/P Pulse Ox O2 Delivery O2 Flow Rate FiO2 11/28/16 08:00 99.5 80 26 130/66 97 Nasal Cannula 2.0 11/27/16 09:30 30 Intake and Output 11/27/16 11/27/16 11/28/16 15:00 23:00 07:00 Intake Total 761.76 ml 510 ml 790 ml Output Total 261 ml 546 ml 453 ml Balance 500.76 ml -36 ml 337 ml Exam ENMT: mucosa pink and moist, nl external ears & nose, nl lips & teeth, nl nasal mucosa & septum Neck: non-tender, supple Respiratory: clear to auscultation, normal air movement Cardiovascular: nl pulses, regular rate and rhythm Results Result Diagram: 11/28/16 0500 11/28/16 0500 JOSELINE NICOLE MD Nov 28, 2016 10:33
[2016-11-28] MEDS: INSULIN GLARGINE [LANtus] 3 ML PEN SC SCH (14:51)
[2016-11-28] MEDS: HYDROmorphONE 1 MG/ML SYG IV PRN ×2 (19:46→22:46)
--- NOTE | 2016-11-28 21:03 | CONS ---
Date/Time of Note Date/Time of Note DATE: 11/28/16 TIME: 21:01 Assessment/Plan Assessment/Plan Chief Complaint/Hosp Course s/p avr dm mehrdad cad plan ck labs ss insulin Problems: Consultation Date/Type/Reason Admit Date/Time Nov 26, 2016 at 10:43 Initial Consult Date 11/27/16 Type of Consultation: renal 24 HR Interval Summary Constitutional: no complaints Exam/Review of Systems Vital Signs Vitals Vital Signs Date Time Temp Pulse Resp B/P Pulse Ox O2 Delivery O2 Flow Rate FiO2 11/28/16 19:19 2.0 11/28/16 19:00 82 42 144/105 96 Nasal Cannula 11/28/16 16:00 100.1 11/27/16 09:30 30 Intake and Output 11/27/16 11/27/16 11/28/16 15:00 23:00 07:00 Intake Total 761.76 ml 510 ml 850 ml Output Total 261 ml 546 ml 453 ml Balance 500.76 ml -36 ml 397 ml Exam Respiratory: diminished breath sounds Cardiovascular: regular rate and rhythm Gastrointestinal: soft Results Result Diagram: 11/28/16 0500 11/28/16 0500 Results 24 hrs Laboratory Tests Test 11/27/16 22:38 11/28/16 00:02 11/28/16 02:05 11/28/16 03:09 Bedside Glucose 131 121 58 L 129 Test 11/28/16 05:00 11/28/16 08:02 11/28/16 11:40 11/28/16 18:01 Alanine Aminotransferase (ALT/SGPT) 24 Albumin 3.6 Albumin/Globulin Ratio 1.38 Alkaline Phosphatase 48 Anion Gap 19 H Aspartate Amino Transf (AST/SGOT) 36 Basophils # 0.0 Basophils % 0.2 Blood Morphology Comment Blood Urea Nitrogen 24 H Calcium Level 8.6 Carbon Dioxide Level 24 Chloride Level 105 Creatinine 1.09 H Direct Bilirubin 0.00 Eosinophils # 0.0 Eosinophils % 0.1 Globulin 2.60 Glucose Level 144 Hematocrit 29.4 L Hemoglobin 9.9 L Indirect Bilirubin 0.4 Lymphocytes # 1.7 Lymphocytes % 10.4 L Mean Corpuscular Hemoglobin 28.6 L Mean Corpuscular Hemoglobin Concent 33.6 Mean Corpuscular Volume 85.1 Mean Platelet Volume 9.0 Monocytes # 1.6 H Monocytes % 10.0 Neutrophils # 13.1 H Neutrophils % 79.3 H Nucleated Red Blood Cells # 0.0 Nucleated Red Blood Cells % 0.0 Platelet Count 182 Potassium Level 4.3 Red Blood Count 3.46 L Red Cell Distribution Width 16.7 H Sodium Level 144 Total Bilirubin 0.4 Total Protein 6.2 White Blood Count 16.5 #H Bedside Glucose 185 237 H 260 H Test 11/28/16 20:18 Bedside Glucose 300 H Medications Medications Current Medications Potassium Chloride 40 meq/ Dextrose/Sodium Chloride 1,020 ml @ 60 mls/hr Q17H IV Last administered on 11/28/16 09:00; Admin Dose 60 MLS/HR; Start 11/26/16 at 23:00 Dopamine HCl/ Dextrose 250 ml @ 5.138 mls/ hr TITRATE IV ; Start 11/26/16 at 21: 30 Hydromorphone HCl (Dilaudid) 0.2 mg Q1H PRN IV PAIN LEVEL 1-5 Last administered on 11/27/16 11:19; Admin Dose 0.2 MG; Start 11/26/16 at 21:30 Hydromorphone HCl (Dilaudid) 0.4 mg Q1H PRN IV PAIN LEVEL 6-10 Last administered on 11/28/16 19:46; Admin Dose 0.4 MG; Start 11/26/16 at 21:30 Ondansetron HCl (Zofran Inj) 2 mg ONCE PRN IV Nausea; Start 11/26/16 at 21:30 Hydromorphone HCl (Dilaudid) 0.2 mg Q15M PRN IV PAIN LEVEL 1-5; Start 11/26/16 at 22:00 Hydromorphone HCl 0.4 mg 0.4 mg Q15M PRN IV PAIN LEVEL 6-10 Last administered on 11/27/16 00:07; Admin Dose 0.4 MG; Start 11/26/16 at 22:00 Magnesium Sulfate/ Dextrose (Magnesium Sulfate 1 Gm/D5W) 100 ml @ 100 mls/hr PRN PRN IVPB Mag < 2; Start 11/27/16 at 04:30 Pantoprazole 40 mg 40 mg DAILY@06 IV Last administered on 11/28/16 05:00; Admin Dose 40 MG; Start 11/27/16 at 06:00 Nitroglycerin/ Dextrose (Nitroglycerin 50 Mg/D5W (Pmx)) 250 ml @ 1.5 mls/hr TITRATE IV Last administered on 11/27/16 22:29; Admin Dose 30 MLS/HR; Start at 19:00 Acetaminophen/ Hydrocodone Bitart ([place] (5/325)) 1 tab Q4H PRN PO PAIN LEVEL 1 -5 Last administered on 11/28/16 19:05; Admin Dose 1 TAB; Start 11/27/16 at 20: 00 Acetaminophen/ Hydrocodone Bitart ([place] (5/325)) 2 tab Q4H PRN PO PAIN LEVEL 6 -10 Last administered on 11/28/16 10:23; Admin Dose 2 TAB; Start 11/27/16 at 20 :00 Diagnostic Test (Pha) (Accucheck) 1 ea 02 XX ; Start 11/29/16 at 02:00 Miscellaneous Information 1 ea NOTE XX ; Start 11/28/16 at 02:45 Glucose (Glutose) 15 gm Q15M PRN PO DECREASED GLUCOSE; Start 11/28/16 at 02:45 Glucose (Glutose) 22.5 gm Q15M PRN PO DECREASED GLUCOSE; Start 11/28/16 at 02: 45 Dextrose (D50w Syringe) 25 ml Q15M PRN IV DECREASED GLUCOSE; Start 11/28/16 at 02:45 Dextrose (D50w Syringe) 50 ml Q15M PRN IV DECREASED GLUCOSE; Start 11/28/16 at 02:45 Glucagon (Glucagen) 1 mg Q15M PRN IM DECREASED GLUCOSE; Start 11/28/16 at 02:45 Glucose (Glutose) 15 gm Q15M PRN BUCCAL DECREASED GLUCOSE; Start 11/28/16 at 02 :45 Insulin Glargine (Lantus) 15 unit QAM SC Last administered on 11/28/16 14:51; Admin Dose 15 UNIT; Start 11/28/16 at 14:30 Diagnostic Test (Pha) (Accucheck) 1 ea 02 XX ; Start 11/29/16 at 02:00 KILLIAN FLORES MD Nov 28, 2016 21:03
[2016-11-28 21:16] LABS: AADO2 Arterial 103.2 mmHg (7.0-24.0); Allen Test ACCEPTAB; Arterial Base Excess -0.5 mmol/L (-3.0-3); Arterial COHb 0.3 % (0.0-3.0); Arterial HCO3 24.8 mmol/L (22.0-26.0); Arterial MetHb 0.3 % (0.0-1.5); Arterial Total Hemglobin 11.1 g/dl (12.0-18.0); MODE NASAL CANNULA
--- NOTE | 2016-11-28 21:19 | RADRPT ---
PROCEDURE: XR Chest. CLINICAL INDICATION: Increasing respiratory for TECHNIQUE: AP Portable chest. COMPARISON: 11/27/2016 chest x-ray FINDINGS: The soft tissues and bones are remarkable for right internal jugular with tip superimposed over the right and brachial cephalic and internal jugular junction. No pneumothorax is present. The patient is status post median sternotomy with stimulator electrodes, mediastinal drains present. An endotr acheal tube is not visualized. Interval removal of previously noted [place] catheter is noted. D ecreased lung volumes with increased consolidation in the left upper and lower lobe is noted. Obscu ration left hemidiaphragm is present compatible with a small left pleural effusion. The mediastinum and heart are remarkable for moderate cardiomegaly and mediastinal widening likely secondary to hawa hnique para. No pneumothorax is present. IMPRESSION: 1. Tubes and lines as indicated above with removal of endotracheal tube and [place] catheter when compared with prior study. 2. Status post median sternotomy and moderate cardiomegaly. 3. Interval increase left upper and lower lobe consolidation or atelectasis and small left pleural effusion. RPTAT: HDC .Krissy Rivera MD, Date Time Electronically viewed and signed by .Krissy Rivera MD, on 11/28/2016 21:19 .C/
[2016-11-28] MEDS ORDERED: FUROSEMIDE 40 MG INJ IV ONE (22:00)
--- NOTE | 2016-11-28 22:49 | RADRPT ---
Vent Rate: 91 bpm RR Interval: 0 msec [place] Interval: 150 msec QRS Duration: 76 msec QT Interval: 346 msec QTC Interval: 425 msec P-R-T [place]: 38 - 3 - 103 degrees Normal sinus rhythm Left ventricular hypertrophy with repolarization abnormality Abnormal ECG Electronically Signed By: Micha Hoffman [id number]
--- NOTE | 2016-11-28 22:50 | RADRPT ---
Vent Rate: 92 bpm RR Interval: 0 msec [place] Interval: 0 msec QRS Duration: 142 msec QT Interval: 438 msec QTC Interval: 541 msec P-R-T [place]: 0 - 92 - 131 degrees Electronic ventricular pacemaker Electronically Signed By: Micha Hoffman [id number]
--- NOTE | 2016-11-28 22:50 | RADRPT ---
Vent Rate: 32 bpm RR Interval: 0 msec [place] Interval: 0 msec QRS Duration: 116 msec QT Interval: 438 msec QTC Interval: 319 msec P-R-T [place]: 60 - 57 - 9 degrees 3rd Degree Heart Block Junctional escape rhythm Right bundle branch block Abnormal ECG Electronically Signed By: Micha Hoffman [id number]
[2016-11-28] MEDS: INSULIN REGULAR, HUMAN 100 UNIT in SOD CHLORIDE 0.9% 99 ML IV SCH ×2 (22:56)
[2016-11-29] VITALS (28 sets, daily range): BP systolic 105–155; BP diastolic 70–139; PULSE 80–87; RESP 16–36
[2016-11-29] MEDS: ACCUCHECK XX SCH ×24 (01:00→23:03)
[2016-11-29] MEDS ORDERED: ACCUCHECK XX SCH ×2 (02:00)
[2016-11-29] MEDS: HYDROmorphONE 1 MG/ML SYG IV PRN ×5 (02:07→22:16)
[2016-11-29 05:10] LABS: BASOPHILS % 0.3 % (0.0-2.0); EOSINOPHILS # 0.1 10^3/ul (0.0-0.5); EOSINOPHILS % 0.4 % (0.0-7.0); HEMATOCRIT 29.8 % (37.0-47.0); HEMOGLOBIN 9.8 g/dl (12.0-16.0); LYMPHOCYTES # 2.2 10^3/ul (0.8-2.9); LYMPHOCYTES % 14.5 % (15.0-51.0); MEAN CORPUSCULAR HEMOGLOBIN 28.4 pg (29.0-33.0); MEAN CORPUSCULAR VOLUME 85.9 fl (82.0-101.0); MEAN PLATELET VOLUME 9.3 fl (7.4-10.4); MONOCYTE # 1.3 10^3/ul (0.3-0.9); MONOCYTES % 8.8 % (0.0-11.0); NEUTROPHIL # 11.4 10^3/ul (1.6-7.5); PLATELET COUNT 193 10^3/UL (140-440); RED BLOOD COUNT 3.46 10^6/ul (4.20-5.40); RED CELL DISTRIBUTION WIDTH 16.9 % (11.5-14.5); UNCORRECTED WBC 15.1 10^3/ul (4.8-10.8); WHITE BLOOD COUNT 15.1 10^3/ul (4.8-10.8)
[2016-11-29 05:26] LABS: CONDITION 1; LH ANALYZER COMMENTS 1
[2016-11-29 05:45] LABS: POTASSIUM 4.6 mmol/L (3.5-5.1)
[2016-11-29 05:47] LABS: BILIRUBIN,INDIRECT 0.2 mg/dl (0-1.1); BILIRUBIN,TOTAL 0.2 mg/dl (0.2-1.3); CREATININE 0.78 mg/dl (0.44-1.00); TOTAL PROTEIN 6.2 g/dl (6.1-8.1)
[2016-11-29 05:48] LABS: CALCIUM 8.7 mg/dl (8.4-10.2)
[2016-11-29] MEDS: PANTOPRAZOLE 40 MG INJ IV SCH (06:04)
[2016-11-29] MEDS: DEXTROSE 5%-0.225% NACL 1,000 ML IV SCH ×2 (06:05→22:07)
[2016-11-29 07:22] LABS: ALBUMIN 3.3 g/dl (3.3-4.9); ALBUMIN/GLOBULIN RATIO 1.13
[2016-11-29] MEDS: INSULIN GLARGINE [LANtus] 3 ML PEN SC SCH (09:15)
[2016-11-29] MEDS: HYDROCODONE/APAP (5/325) TAB PO PRN ×2 (09:56→15:02)
--- NOTE | 2016-11-29 12:33 | CONS ---
DATE OF ADMISSION: 11/26/2016 DATE OF CONSULTATION: REASON FOR CONSULTATION: Hypoxemia. Thank you, Dr. Castle, for this consultation. HISTORY OF PRESENT ILLNESS: This is a 46-year-old lady with history of aortic stenosis who underwen t aortic valve replacement and thymectomy performed on 11/27/2016. She underwent bioprosthetic valv e replacement, was safely extubated; however, postoperatively, has had significant shortness of padma th and chest x-ray demonstrates atelectasis with possible underlying pulmonary edema. Few further d etails are available. PAST MEDICAL HISTORY: Aortic stenosis, congestive cardiac failure. MEDICATIONS: Per chart. ALLERGIES: NONE. SOCIAL HISTORY: Nonsmoker, no alcohol, no history of drug use. FAMILY HISTORY: Noncontributory. SYSTEMS REVIEW: A 12-point review of systems was negative other than that mentioned above. PHYSICAL EXAMINATION: GENERAL: Moderately obese lady, awake, alert, oriented, comfortable at rest, no acute distress. VITAL SIGNS: Currently afebrile, pulse is 87, blood pressure 145/80, O2 saturation 96%, FIO2 of 40% . NECK: Supple. No JVD or lymphadenopathy. CARDIAC: S1, S2. No added sounds or murmurs. CHEST: Diminished air entry bilaterally. ABDOMEN: Soft, nontender. No guarding or rebound. EXTREMITIES: No cyanosis, clubbing, 1+ edema. NEUROLOGIC: Generalized weakness, but no focal deficits. LABORATORY DATA: White count 15.1, hemoglobin 9.8, platelets of 193. Chemistry pending at time of this dictation. Arterial blood gas also pending. DIAGNOSTIC DATA: Chest x-ray was reviewed, shows low lung volumes, bibasilar atelectasis, mild pulm onary edema, small left pleural effusion. IMPRESSION AND PLAN: 1. Post-aortic valve replacement. 2. History of critical aortic sclerosis. 3. Postop hypoxemia secondary to alveolar hypoventilation and mild pulmonary edema. 4. Evidence of mild pulmonary edema. The patient will require: 1. Continued incentive spirometry. 2. Encourage out of bed. 3. Glycemic management. 4. DVT and GI prophylaxis. 5. Possible gentle diuresis if hypoxemia does not improve. Dictated By: GRUPO SÁNCHEZ MD SV/JOAQUIM Conf#: [id number] DID#: [id number] CC: JOSELINE CASTLE MD;*EndCC*
--- NOTE | 2016-11-29 15:27 | CONS ---
Date/Time of Note Date/Time of Note DATE: 11/29/16 TIME: 15:25 Assessment/Plan Assessment/Plan Chief Complaint/Hosp Course s/p avr dm mehrdad cad lung infilterate plan ck labs ss insulin antibioic Problems: Consultation Date/Type/Reason Admit Date/Time Nov 26, 2016 at 10:43 Initial Consult Date 11/27/16 Type of Consultation: renal 24 HR Interval Summary Constitutional: no complaints (sob_) Exam/Review of Systems Vital Signs Vitals Vital Signs Date Time Temp Pulse Resp B/P Pulse Ox O2 Delivery O2 Flow Rate FiO2 11/29/16 13:00 80 24 133/91 100 Nasal Cannula 4.0 11/29/16 12:00 99.5 11/29/16 05:24 30 Intake and Output 11/28/16 11/28/16 11/29/16 14:59 22:59 06:59 Intake Total 600 ml 510 ml 493.5 ml Output Total 198 ml 527 ml 713 ml Balance 402 ml -17 ml -219.5 ml Exam Respiratory: diminished breath sounds Cardiovascular: regular rate and rhythm Gastrointestinal: soft Genitourinary - Female: nl adnexae Musculoskeletal: nl extremities to inspection Results Result Diagram: 11/29/16 0415 11/29/16 0415 Results 24 hrs Laboratory Tests Test 11/28/16 18:01 11/28/16 20:18 11/28/16 21:06 11/28/16 22:53 Bedside Glucose 260 H 300 H 219 Arterial Blood HCO3 24.8 Arterial Blood Base Excess -0.5 Arterial Blood Oxygen Saturation 94.6 L Rehan Test ACCEPTAB Arterial Blood Gas Puncture Site Right Radial Arterial Blood Carboxyhemoglobin 0.3 Arterial Blood Date Drawn 11/28/2016 9:04:31 PM Arterial Blood Methemoglobin 0.3 Arterial Blood pCO2 (Temp correct) 43.7 Arterial Blood pH (Temp corrected) 7.372 Arterial Blood pO2 (Temp corrected) 81.1 Blood Gas A-a O2 Differential 103.2 H Blood Gas Actual Respiration Rate 33 Blood Gas Modality NASAL CANNULA Blood Gas Notified Time 11/28/2016 9:15:53 PM Blood Gas Notified Whom Lizeth [employer] Blood Gas Specimen Source Blood arterial Blood Gas Temperature 37.0 FiO2 33.0 Oxyhemoglobin Percent 94.0 Total Hemoglobin 11.1 L Test 11/28/16 23:52 11/29/16 00:05 11/29/16 00:54 11/29/16 02:00 Bedside Glucose 201 155 118 Potassium Level 4.6 Test 11/29/16 03:00 11/29/16 04:14 11/29/16 04:15 11/29/16 04:59 Bedside Glucose 117 122 118 Alanine Aminotransferase (ALT/SGPT) 19 Albumin 3.3 Albumin/Globulin Ratio 1.13 Alkaline Phosphatase 53 Anion Gap 12 # Aspartate Amino Transf (AST/SGOT) 19 Basophils # 0.0 Basophils % 0.3 Blood Morphology Comment Blood Urea Nitrogen 23 H Calcium Level 8.7 Carbon Dioxide Level 30 Chloride Level 105 Creatinine 0.78 Direct Bilirubin 0.00 Eosinophils # 0.1 Eosinophils % 0.4 Globulin 2.90 Glucose Level 113 Hematocrit 29.8 L Hemoglobin 9.8 L Indirect Bilirubin 0.2 Lymphocytes # 2.2 Lymphocytes % 14.5 L Mean Corpuscular Hemoglobin 28.4 L Mean Corpuscular Hemoglobin Concent 33.0 Mean Corpuscular Volume 85.9 Mean Platelet Volume 9.3 Monocytes # 1.3 H Monocytes % 8.8 Neutrophils # 11.4 H Neutrophils % 76.0 Nucleated Red Blood Cells # 0.0 Nucleated Red Blood Cells % 0.0 Platelet Count 193 Potassium Level 4.6 Red Blood Count 3.46 L Red Cell Distribution Width 16.9 H Sodium Level 142 Total Bilirubin 0.2 Total Protein 6.2 White Blood Count 15.1 H Test 11/29/16 06:04 11/29/16 06:50 11/29/16 07:59 11/29/16 09:05 Bedside Glucose 118 124 148 135 Test 11/29/16 10:18 11/29/16 11:05 11/29/16 13:03 11/29/16 14:58 Bedside Glucose 173 174 156 186 Medications Medications Current Medications Potassium Chloride 40 meq/ Dextrose/Sodium Chloride 1,020 ml @ 60 mls/hr Q17H IV Last administered on 11/28/16 09:00; Admin Dose 60 MLS/HR; Start 11/26/16 at 23:00 Dopamine HCl/ Dextrose 250 ml @ 5.138 mls/ hr TITRATE IV ; Start 11/26/16 at 21: 30 Hydromorphone HCl (Dilaudid) 0.2 mg Q1H PRN IV PAIN LEVEL 1-5 Last administered on 11/29/16 02:07; Admin Dose 0.2 MG; Start 11/26/16 at 21:30 Hydromorphone HCl (Dilaudid) 0.4 mg Q1H PRN IV PAIN LEVEL 6-10 Last administered on 11/29/16 07:03; Admin Dose 0.4 MG; Start 11/26/16 at 21:30 Ondansetron HCl (Zofran Inj) 2 mg ONCE PRN IV Nausea; Start 11/26/16 at 21:30 Hydromorphone HCl (Dilaudid) 0.2 mg Q15M PRN IV PAIN LEVEL 1-5; Start 11/26/16 at 22:00 Hydromorphone HCl 0.4 mg 0.4 mg Q15M PRN IV PAIN LEVEL 6-10 Last administered on 11/27/16 00:07; Admin Dose 0.4 MG; Start 11/26/16 at 22:00 Magnesium Sulfate/ Dextrose (Magnesium Sulfate 1 Gm/D5W) 100 ml @ 100 mls/hr PRN PRN IVPB Mag < 2; Start 11/27/16 at 04:30 Pantoprazole 40 mg 40 mg DAILY@06 IV Last administered on 11/29/16 06:04; Admin Dose 40 MG; Start 11/27/16 at 06:00 Nitroglycerin/ Dextrose (Nitroglycerin 50 Mg/D5W (Pmx)) 250 ml @ 1.5 mls/hr TITRATE IV Last administered on 11/27/16 22:29; Admin Dose 30 MLS/HR; Start at 19:00 Acetaminophen/ Hydrocodone Bitart ([place] (5/325)) 1 tab Q4H PRN PO PAIN LEVEL 1 -5 Last administered on 11/29/16 15:02; Admin Dose 1 TAB; Start 11/27/16 at 20: 00 Acetaminophen/ Hydrocodone Bitart ([place] (5/325)) 2 tab Q4H PRN PO PAIN LEVEL 6 -10 Last administered on 11/28/16 10:23; Admin Dose 2 TAB; Start 11/27/16 at 20 :00 Miscellaneous Information 1 ea NOTE XX ; Start 11/28/16 at 02:45 Glucose (Glutose) 15 gm Q15M PRN PO DECREASED GLUCOSE; Start 11/28/16 at 02:45 Glucose (Glutose) 22.5 gm Q15M PRN PO DECREASED GLUCOSE; Start 11/28/16 at 02: 45 Glucagon (Glucagen) 1 mg Q15M PRN IM DECREASED GLUCOSE; Start 11/28/16 at 02:45 Glucose (Glutose) 15 gm Q15M PRN BUCCAL DECREASED GLUCOSE; Start 11/28/16 at 02 :45 Insulin Glargine (Lantus) 15 unit QAM SC Last administered on 11/29/16 09:15; Admin Dose 15 UNIT; Start 11/28/16 at 14:30 Diagnostic Test (Pha) (Accucheck) 1 ea Q1H XX Last administered on 11/29/16 15 :01; Admin Dose 1 EA; Start 11/28/16 at 22:00 Dextrose (D50w Syringe) 25 ml Q15M PRN IV Till BS 80 mg/dL or above x2; Start 11/28/16 at 22:00 Dextrose 50 ml 50 ml Q15M PRN IV Till BS 80 mg/dL or above x2; Start 11/28/16 at 22:00 Dextrose/Sodium Chloride (D5-1/4ns) 1,000 ml @ 60 mls/hr [id number] IV Last administered on 11/29/16 06:05; Admin Dose 60 MLS/HR; Start 11/29/16 at 06:00 Furosemide (Lasix) 40 mg DAILY IV ; Start 11/30/16 at 09:00 KILLIAN FLORES MD Nov 29, 2016 15:26
[2016-11-29] MEDS: CEFTRIAXONE 1 GM/50 ML (PMX) 50 ML IVPB SCH (15:50)
--- NOTE | 2016-11-29 18:30 | PN ---
Date/Time of Note Date/Time of Note DATE: 11/29/16 TIME: 18:29 Assessment/Plan Lines/Catheters IV Catheter Type (from Nrsg): Cordis Nelson in Place (from Nrsg): Yes Assessment/Plan Chief Complaint/Hosp Course SP AVR lines DEed will continue CT sxn ambulate continue pacing monitor Rhythm pulm toilet Problems: Subjective 24 Hr Interval Summary Constitutional: improved Pain Control: mild Exam/Review of Systems Vital Signs Vitals Vital Signs Date Time Temp Pulse Resp B/P Pulse Ox O2 Delivery O2 Flow Rate FiO2 11/29/16 18:00 80 31 127/76 100 Nasal Cannula 4.0 11/29/16 16:00 99.4 11/29/16 05:24 30 Intake and Output 11/28/16 11/28/16 11/29/16 15:00 23:00 07:00 Intake Total 600 ml 510 ml 495.0 ml Output Total 198 ml 757 ml 463 ml Balance 402 ml -247 ml 32.0 ml Exam ENMT: mucosa pink and moist, nl external ears & nose, nl lips & teeth, nl nasal mucosa & septum Neck: non-tender, supple Respiratory: clear to auscultation, normal air movement Cardiovascular: nl pulses, regular rate and rhythm Gastrointestinal: nl liver, spleen, non-tender, soft Results Result Diagram: 11/29/16 0415 11/29/16 0415 JOSELINE NICOLE MD Nov 29, 2016 18:30
[2016-11-29] MEDS: POTASSIUM CHLORIDE 40 MEQ in DEXTROSE 5%-0.225% NACL 1,000 ML IV SCH (18:59)
[2016-11-30] VITALS (24 sets, daily range): BP systolic 123–162; BP diastolic 48–127; PULSE 71–80; RESP 19–39
[2016-11-30] MEDS: ACCUCHECK XX SCH ×16 (00:08→15:37)
[2016-11-30] MEDS: HYDROmorphONE 1 MG/ML SYG IV PRN ×3 (01:20→22:09)
[2016-11-30 05:45] LABS: BASOPHIL # 0.1 10^3/ul (0.0-0.1); BASOPHILS % 0.5 % (0.0-2.0); EOSINOPHILS # 0.3 10^3/ul (0.0-0.5); EOSINOPHILS % 2.8 % (0.0-7.0); HEMATOCRIT 28.8 % (37.0-47.0); HEMOGLOBIN 9.7 g/dl (12.0-16.0); LYMPHOCYTES # 2.1 10^3/ul (0.8-2.9); LYMPHOCYTES % 19.1 % (15.0-51.0); MEAN CORPUSCULAR HEMOGLOBIN 28.7 pg (29.0-33.0); MEAN CORPUSCULAR HGB CONC 33.7 g/dl (32.0-37.0); MEAN CORPUSCULAR VOLUME 85.1 fl (82.0-101.0); MONOCYTES % 9.3 % (0.0-11.0); NEUTROPHIL # 7.7 10^3/ul (1.6-7.5); NEUTROPHILS % 68.3 % (39.0-77.0); PLATELET COUNT 208 10^3/UL (140-440); RED BLOOD COUNT 3.38 10^6/ul (4.20-5.40); RED CELL DISTRIBUTION WIDTH 16.6 % (11.5-14.5); UNCORRECTED WBC 11.2 10^3/ul (4.8-10.8); WHITE BLOOD COUNT 11.2 10^3/ul (4.8-10.8)
[2016-11-30 05:54] LABS: POTASSIUM 3.8 mmol/L (3.5-5.1)
[2016-11-30 05:55] LABS: CONDITION 1; LH ANALYZER COMMENTS 1
[2016-11-30 05:56] LABS: CREATININE 0.74 mg/dl (0.44-1.00)
[2016-11-30 05:57] LABS: CALCIUM 8.4 mg/dl (8.4-10.2); PHOSPHORUS 3.5 mg/dl (2.5-4.9)
[2016-11-30 05:58] LABS: MAGNESIUM 2.3 mg/dl (1.7-2.5)
[2016-11-30] MEDS: PANTOPRAZOLE 40 MG INJ IV SCH (06:09)
[2016-11-30] MEDS: FUROSEMIDE 40 MG INJ IV SCH (08:38)
[2016-11-30] MEDS: INSULIN GLARGINE [LANtus] 3 ML PEN SC SCH (08:39)
--- NOTE | 2016-11-30 09:09 | RADRPT ---
PROCEDURE: XR Chest. CLINICAL INDICATION: Increasing respiratory effort TECHNIQUE: AP Portable chest. COMPARISON: 11/28/2016 chest x-ray FINDINGS: The soft tissues and bones are remarkable for right internal jugular with tip superimposed over the right and brachial cephalic and internal jugular junction. No pneumothorax is present. The patient is status post median sternotomy with stimulator electrodes, mediastinal drains present. Decreased lung volumes with persistent consolidation in the left lower lobe is noted. Obscuration left hemid iaphragm is present compatible with a small left pleural effusion. The mediastinum and heart are re markable for moderate cardiomegaly and mediastinal widening likely secondary to technique para. No pneumothorax is present. IMPRESSION: 1. Tubes and lines as indicated above. 2. Status post median sternotomy and moderate cardiomegaly. 3. Stable retrocardiac opacity likely representing effusion with atelectasis or infiltrate. RPTAT: JJ .Hema Nugent MD, MD Date Time Electronically viewed and signed by .Hema Nugent MD, on 11/30/2016 09:09 .A/
[2016-11-30] MEDS: INSULIN REGULAR, HUMAN 100 UNIT in SOD CHLORIDE 0.9% 99 ML IV SCH ×2 (11:16)
--- NOTE | 2016-11-30 11:16 | CONS ---
Date/Time of Note Date/Time of Note DATE: 11/30/16 TIME: 11:15 Consult Date/Type/Reason Admit Date/Time Nov 26, 2016 at 10:43 Initial Consult Date 11/27/16 Type of Consultation: pulmonary Subjective Patient stable this morning no new events less shortness of breath Objective Vital Signs Date Time Temp Pulse Resp B/P Pulse Ox O2 Delivery O2 Flow Rate FiO2 11/30/16 07:30 100 2.0 11/30/16 06:00 80 27 135/73 Nasal Cannula 11/30/16 04:00 98.9 11/30/16 01:49 28 Intake and Output 11/29/16 11/29/16 11/30/16 15:00 23:00 07:00 Intake Total 588.0 ml 424.5 ml 488.7 ml Output Total 100 ml 315 ml 428 ml Balance 488.0 ml 109.5 ml 60.7 ml PHYSICAL EXAMINATION: GENERAL: Moderately obese lady, awake, alert, oriented, comfortable at rest, no acute distress. VITAL SIGNS: NECK: Supple. No JVD or lymphadenopathy. CARDIAC: S1, S2. No added sounds or murmurs. CHEST: Diminished air entry bilaterally. ABDOMEN: Soft, nontender. No guarding or rebound. EXTREMITIES: No cyanosis, clubbing, 1+ edema. NEUROLOGIC: Generalized weakness, but no focal deficits. Results/Medications Result Diagram: 11/30/16 0432 11/30/16 0432 Results 24 hrs Laboratory Tests Test 11/29/16 13:03 11/29/16 14:58 11/29/16 15:54 11/29/16 17:19 Bedside Glucose 156 186 136 99 Test 11/29/16 18:11 11/29/16 18:57 11/29/16 20:01 11/29/16 20:57 Bedside Glucose 106 168 211 172 Test 11/29/16 22:04 11/29/16 23:03 11/30/16 00:09 11/30/16 01:03 Bedside Glucose 152 103 126 121 Test 11/30/16 02:01 11/30/16 02:57 11/30/16 03:58 11/30/16 04:32 Bedside Glucose 124 108 110 Anion Gap 16 Basophils # 0.1 Basophils % 0.5 Blood Morphology Comment Blood Urea Nitrogen 23 H Calcium Level 8.4 Carbon Dioxide Level 26 Chloride Level 103 Creatinine 0.74 Eosinophils # 0.3 Eosinophils % 2.8 Glucose Level 104 Hematocrit 28.8 L Hemoglobin 9.7 L Lymphocytes # 2.1 Lymphocytes % 19.1 Magnesium Level 2.3 Mean Corpuscular Hemoglobin 28.7 L Mean Corpuscular Hemoglobin Concent 33.7 Mean Corpuscular Volume 85.1 Mean Platelet Volume 9.0 Monocytes # 1.0 H Monocytes % 9.3 Neutrophils # 7.7 H Neutrophils % 68.3 Nucleated Red Blood Cells # 0.0 Nucleated Red Blood Cells % 0.0 Phosphorus Level 3.5 Platelet Count 208 Potassium Level 3.8 Red Blood Count 3.38 L Red Cell Distribution Width 16.6 H Sodium Level 141 White Blood Count 11.2 #H Test 11/30/16 04:56 11/30/16 06:09 11/30/16 07:03 11/30/16 07:58 Bedside Glucose 91 122 134 154 Test 11/30/16 10:28 Bedside Glucose 311 H Medications Current Medications Potassium Chloride 40 meq/ Dextrose/Sodium Chloride 1,020 ml @ 60 mls/hr Q17H IV Last administered on 11/28/16 09:00; Admin Dose 60 MLS/HR; Start 11/26/16 at 23:00 Dopamine HCl/ Dextrose 250 ml @ 5.138 mls/ hr TITRATE IV ; Start 11/26/16 at 21: 30 Hydromorphone HCl (Dilaudid) 0.2 mg Q1H PRN IV PAIN LEVEL 1-5 Last administered on 11/29/16 02:07; Admin Dose 0.2 MG; Start 11/26/16 at 21:30 Hydromorphone HCl (Dilaudid) 0.4 mg Q1H PRN IV PAIN LEVEL 6-10 Last administered on 11/30/16 10:26; Admin Dose 0.4 MG; Start 11/26/16 at 21:30 Ondansetron HCl (Zofran Inj) 2 mg ONCE PRN IV Nausea; Start 11/26/16 at 21:30 Hydromorphone HCl (Dilaudid) 0.2 mg Q15M PRN IV PAIN LEVEL 1-5; Start 11/26/16 at 22:00 Hydromorphone HCl 0.4 mg 0.4 mg Q15M PRN IV PAIN LEVEL 6-10 Last administered on 11/27/16 00:07; Admin Dose 0.4 MG; Start 11/26/16 at 22:00 Magnesium Sulfate/ Dextrose (Magnesium Sulfate 1 Gm/D5W) 100 ml @ 100 mls/hr PRN PRN IVPB Mag < 2; Start 11/27/16 at 04:30 Pantoprazole 40 mg 40 mg DAILY@06 IV Last administered on 11/30/16 06:09; Admin Dose 40 MG; Start 11/27/16 at 06:00 Nitroglycerin/ Dextrose (Nitroglycerin 50 Mg/D5W (Pmx)) 250 ml @ 1.5 mls/hr TITRATE IV Last administered on 11/27/16 22:29; Admin Dose 30 MLS/HR; Start at 19:00 Acetaminophen/ Hydrocodone Bitart ([place] (5/325)) 1 tab Q4H PRN PO PAIN LEVEL 1 -5 Last administered on 11/29/16 15:02; Admin Dose 1 TAB; Start 11/27/16 at 20: 00 Acetaminophen/ Hydrocodone Bitart ([place] (5/325)) 2 tab Q4H PRN PO PAIN LEVEL 6 -10 Last administered on 11/28/16 10:23; Admin Dose 2 TAB; Start 11/27/16 at 20 :00 Miscellaneous Information 1 ea NOTE XX ; Start 11/28/16 at 02:45 Glucose (Glutose) 15 gm Q15M PRN PO DECREASED GLUCOSE; Start 11/28/16 at 02:45 Glucose (Glutose) 22.5 gm Q15M PRN PO DECREASED GLUCOSE; Start 11/28/16 at 02: 45 Glucagon (Glucagen) 1 mg Q15M PRN IM DECREASED GLUCOSE; Start 11/28/16 at 02:45 Glucose (Glutose) 15 gm Q15M PRN BUCCAL DECREASED GLUCOSE; Start 11/28/16 at 02 :45 Insulin Glargine (Lantus) 15 unit QAM SC Last administered on 11/30/16 08:39; Admin Dose 15 UNIT; Start 11/28/16 at 14:30 Diagnostic Test (Pha) (Accucheck) 1 ea Q1H XX Last administered on 11/30/16 10 :42; Admin Dose 1 EA; Start 11/28/16 at 22:00 Dextrose (D50w Syringe) 25 ml Q15M PRN IV Till BS 80 mg/dL or above x2; Start 11/28/16 at 22:00 Dextrose 50 ml 50 ml Q15M PRN IV Till BS 80 mg/dL or above x2; Start 11/28/16 at 22:00 Dextrose/Sodium Chloride (D5-1/4ns) 1,000 ml @ 60 mls/hr [id number] IV Last administered on 11/29/16 22:07; Admin Dose 60 MLS/HR; Start 11/29/16 at 06:00 Furosemide 40 mg 40 mg DAILY IV Last administered on 11/30/16 08:38; Admin Dose 40 MG; Start 11/30/16 at 09:00 Ceftriaxone Sodium (Rocephin) 50 ml @ 100 mls/hr Q24H IVPB Last administered on 11/29/16 15:50; Admin Dose 100 MLS/HR; Start 11/29/16 at 15:30 Assessment/Plan Chief Complaint/Hosp Course IMPRESSION AND PLAN: 1. Post-aortic valve replacement. 2. History of critical aortic sclerosis. 3. Postop hypoxemia secondary to alveolar hypoventilation and mild pulmonary edema. 4. Evidence of mild pulmonary edema. The patient will require: 1. Continued incentive spirometry. 2. Encourage out of bed. 3. Glycemic management. 4. DVT and GI prophylaxis. 5. Continue diuresis if tolerated. Transfer to telemetry Problems: GRUPO SÁNCHEZ MD, [facility] Nov 30, 2016 11:16
--- NOTE | 2016-11-30 14:12 | CONS ---
Date/Time of Note Date/Time of Note DATE: 11/30/16 TIME: 14:11 Assessment/Plan Assessment/Plan Chief Complaint/Hosp Course s/p avr dm mehrdad cad lung infilterate plan ck labs ss insulin antibioic per cardio Problems: Consultation Date/Type/Reason Admit Date/Time Nov 26, 2016 at 10:43 Initial Consult Date 11/27/16 Type of Consultation: renal 24 HR Interval Summary Constitutional: other (feeling better) Exam/Review of Systems Vital Signs Vitals Vital Signs Date Time Temp Pulse Resp B/P Pulse Ox O2 Delivery O2 Flow Rate FiO2 11/30/16 12:00 97.8 80 31 135/95 100 11/30/16 10:00 4.0 11/30/16 07:00 Nasal Cannula 11/30/16 01:49 28 Intake and Output 11/29/16 11/29/16 11/30/16 15:00 23:00 07:00 Intake Total 588.0 ml 424.5 ml 488.7 ml Output Total 100 ml 315 ml 428 ml Balance 488.0 ml 109.5 ml 60.7 ml Exam Neck: supple Respiratory: clear to auscultation Cardiovascular: regular rate and rhythm Gastrointestinal: soft Musculoskeletal: nl extremities to inspection Extremities: normal pulses Results Result Diagram: 11/30/16 0432 11/30/16 0432 Results 24 hrs Laboratory Tests Test 11/29/16 14:58 11/29/16 15:54 11/29/16 17:19 11/29/16 18:11 Bedside Glucose 186 136 99 106 Test 11/29/16 18:57 11/29/16 20:01 11/29/16 20:57 11/29/16 22:04 Bedside Glucose 168 211 172 152 Test 11/29/16 23:03 11/30/16 00:09 11/30/16 01:03 11/30/16 02:01 Bedside Glucose 103 126 121 124 Test 11/30/16 02:57 11/30/16 03:58 11/30/16 04:32 11/30/16 04:56 Bedside Glucose 108 110 91 Anion Gap 16 Basophils # 0.1 Basophils % 0.5 Blood Morphology Comment Blood Urea Nitrogen 23 H Calcium Level 8.4 Carbon Dioxide Level 26 Chloride Level 103 Creatinine 0.74 Eosinophils # 0.3 Eosinophils % 2.8 Glucose Level 104 Hematocrit 28.8 L Hemoglobin 9.7 L Lymphocytes # 2.1 Lymphocytes % 19.1 Magnesium Level 2.3 Mean Corpuscular Hemoglobin 28.7 L Mean Corpuscular Hemoglobin Concent 33.7 Mean Corpuscular Volume 85.1 Mean Platelet Volume 9.0 Monocytes # 1.0 H Monocytes % 9.3 Neutrophils # 7.7 H Neutrophils % 68.3 Nucleated Red Blood Cells # 0.0 Nucleated Red Blood Cells % 0.0 Phosphorus Level 3.5 Platelet Count 208 Potassium Level 3.8 Red Blood Count 3.38 L Red Cell Distribution Width 16.6 H Sodium Level 141 White Blood Count 11.2 #H Test 11/30/16 06:09 11/30/16 07:03 11/30/16 07:58 11/30/16 10:28 Bedside Glucose 122 134 154 311 H Test 11/30/16 11:09 11/30/16 12:25 11/30/16 13:01 Bedside Glucose 262 H 173 157 Medications Medications Current Medications Dopamine HCl/ Dextrose 250 ml @ 5.138 mls/ hr TITRATE IV ; Start 11/26/16 at 21: 30 Hydromorphone HCl (Dilaudid) 0.2 mg Q1H PRN IV PAIN LEVEL 1-5 Last administered on 11/29/16 02:07; Admin Dose 0.2 MG; Start 11/26/16 at 21:30 Hydromorphone HCl (Dilaudid) 0.4 mg Q1H PRN IV PAIN LEVEL 6-10 Last administered on 11/30/16 10:26; Admin Dose 0.4 MG; Start 11/26/16 at 21:30 Ondansetron HCl (Zofran Inj) 2 mg ONCE PRN IV Nausea; Start 11/26/16 at 21:30 Hydromorphone HCl (Dilaudid) 0.2 mg Q15M PRN IV PAIN LEVEL 1-5; Start 11/26/16 at 22:00 Hydromorphone HCl 0.4 mg 0.4 mg Q15M PRN IV PAIN LEVEL 6-10 Last administered on 11/27/16 00:07; Admin Dose 0.4 MG; Start 11/26/16 at 22:00 Magnesium Sulfate/ Dextrose (Magnesium Sulfate 1 Gm/D5W) 100 ml @ 100 mls/hr PRN PRN IVPB Mag < 2; Start 11/27/16 at 04:30 Pantoprazole 40 mg 40 mg DAILY@06 IV Last administered on 11/30/16 06:09; Admin Dose 40 MG; Start 11/27/16 at 06:00 Nitroglycerin/ Dextrose (Nitroglycerin 50 Mg/D5W (Pmx)) 250 ml @ 1.5 mls/hr TITRATE IV Last administered on 11/27/16 22:29; Admin Dose 30 MLS/HR; Start at 19:00 Acetaminophen/ Hydrocodone Bitart ([place] (5/325)) 1 tab Q4H PRN PO PAIN LEVEL 1 -5 Last administered on 11/29/16 15:02; Admin Dose 1 TAB; Start 11/27/16 at 20: 00 Acetaminophen/ Hydrocodone Bitart ([place] (5/325)) 2 tab Q4H PRN PO PAIN LEVEL 6 -10 Last administered on 11/28/16 10:23; Admin Dose 2 TAB; Start 11/27/16 at 20 :00 Miscellaneous Information 1 ea NOTE XX ; Start 11/28/16 at 02:45 Glucose (Glutose) 15 gm Q15M PRN PO DECREASED GLUCOSE; Start 11/28/16 at 02:45 Glucose (Glutose) 22.5 gm Q15M PRN PO DECREASED GLUCOSE; Start 11/28/16 at 02: 45 Glucagon (Glucagen) 1 mg Q15M PRN IM DECREASED GLUCOSE; Start 11/28/16 at 02:45 Glucose (Glutose) 15 gm Q15M PRN BUCCAL DECREASED GLUCOSE; Start 11/28/16 at 02 :45 Insulin Glargine (Lantus) 15 unit QAM SC Last administered on 11/30/16 08:39; Admin Dose 15 UNIT; Start 11/28/16 at 14:30 Diagnostic Test (Pha) (Accucheck) 1 ea Q1H XX Last administered on 11/30/16 12 :26; Admin Dose 1 EA; Start 11/28/16 at 22:00 Dextrose (D50w Syringe) 25 ml Q15M PRN IV Till BS 80 mg/dL or above x2; Start 11/28/16 at 22:00 Dextrose (D50w Syringe) 50 ml Q15M PRN IV Till BS 80 mg/dL or above x2; Start 1/11/17 at 22:00 Furosemide 40 mg 40 mg DAILY IV Last administered on 11/30/16 08:38; Admin Dose 40 MG; Start 11/30/16 at 09:00 Ceftriaxone Sodium (Rocephin) 50 ml @ 100 mls/hr Q24H IVPB Last administered on 11/29/16 15:50; Admin Dose 100 MLS/HR; Start 11/29/16 at 15:30 KILLIAN FLORES MD Nov 30, 2016 14:12
--- NOTE | 2016-11-30 14:29 | CONS ---
Date/Time of Note Date/Time of Note DATE: 11/30/16 TIME: 14:27 Consult Date/Type/Reason Admit Date/Time Nov 26, 2016 at 10:43 Initial Consult Date 11/27/16 Type of Consultation: Cardiology Objective Vital Signs Date Time Temp Pulse Resp B/P Pulse Ox O2 Delivery O2 Flow Rate FiO2 11/30/16 12:00 97.8 80 31 135/95 100 11/30/16 10:00 4.0 11/30/16 07:00 Nasal Cannula 11/30/16 01:49 28 Intake and Output 11/29/16 11/29/16 11/30/16 15:00 23:00 07:00 Intake Total 588.0 ml 424.5 ml 488.7 ml Output Total 100 ml 315 ml 428 ml Balance 488.0 ml 109.5 ml 60.7 ml Results/Medications Result Diagram: 11/30/16 0432 11/30/16 0432 Results 24 hrs Laboratory Tests Test 11/29/16 14:58 11/29/16 15:54 11/29/16 17:19 11/29/16 18:11 Bedside Glucose 186 136 99 106 Test 11/29/16 18:57 11/29/16 20:01 11/29/16 20:57 11/29/16 22:04 Bedside Glucose 168 211 172 152 Test 11/29/16 23:03 11/30/16 00:09 11/30/16 01:03 11/30/16 02:01 Bedside Glucose 103 126 121 124 Test 11/30/16 02:57 11/30/16 03:58 11/30/16 04:32 11/30/16 04:56 Bedside Glucose 108 110 91 Anion Gap 16 Basophils # 0.1 Basophils % 0.5 Blood Morphology Comment Blood Urea Nitrogen 23 H Calcium Level 8.4 Carbon Dioxide Level 26 Chloride Level 103 Creatinine 0.74 Eosinophils # 0.3 Eosinophils % 2.8 Glucose Level 104 Hematocrit 28.8 L Hemoglobin 9.7 L Lymphocytes # 2.1 Lymphocytes % 19.1 Magnesium Level 2.3 Mean Corpuscular Hemoglobin 28.7 L Mean Corpuscular Hemoglobin Concent 33.7 Mean Corpuscular Volume 85.1 Mean Platelet Volume 9.0 Monocytes # 1.0 H Monocytes % 9.3 Neutrophils # 7.7 H Neutrophils % 68.3 Nucleated Red Blood Cells # 0.0 Nucleated Red Blood Cells % 0.0 Phosphorus Level 3.5 Platelet Count 208 Potassium Level 3.8 Red Blood Count 3.38 L Red Cell Distribution Width 16.6 H Sodium Level 141 White Blood Count 11.2 #H Test 11/30/16 06:09 11/30/16 07:03 11/30/16 07:58 11/30/16 10:28 Bedside Glucose 122 134 154 311 H Test 11/30/16 11:09 11/30/16 12:25 11/30/16 13:01 Bedside Glucose 262 H 173 157 Medications Current Medications Dopamine HCl/ Dextrose 250 ml @ 5.138 mls/ hr TITRATE IV ; Start 11/26/16 at 21: 30 Hydromorphone HCl (Dilaudid) 0.2 mg Q1H PRN IV PAIN LEVEL 1-5 Last administered on 11/29/16 02:07; Admin Dose 0.2 MG; Start 11/26/16 at 21:30 Hydromorphone HCl (Dilaudid) 0.4 mg Q1H PRN IV PAIN LEVEL 6-10 Last administered on 11/30/16 10:26; Admin Dose 0.4 MG; Start 11/26/16 at 21:30 Ondansetron HCl (Zofran Inj) 2 mg ONCE PRN IV Nausea; Start 11/26/16 at 21:30 Hydromorphone HCl (Dilaudid) 0.2 mg Q15M PRN IV PAIN LEVEL 1-5; Start 11/26/16 at 22:00 Hydromorphone HCl 0.4 mg 0.4 mg Q15M PRN IV PAIN LEVEL 6-10 Last administered on 11/27/16 00:07; Admin Dose 0.4 MG; Start 11/26/16 at 22:00 Magnesium Sulfate/ Dextrose (Magnesium Sulfate 1 Gm/D5W) 100 ml @ 100 mls/hr PRN PRN IVPB Mag < 2; Start 11/27/16 at 04:30 Pantoprazole 40 mg 40 mg DAILY@06 IV Last administered on 11/30/16 06:09; Admin Dose 40 MG; Start 11/27/16 at 06:00 Nitroglycerin/ Dextrose (Nitroglycerin 50 Mg/D5W (Pmx)) 250 ml @ 1.5 mls/hr TITRATE IV Last administered on 11/27/16 22:29; Admin Dose 30 MLS/HR; Start at 19:00 Acetaminophen/ Hydrocodone Bitart ([place] (5/325)) 1 tab Q4H PRN PO PAIN LEVEL 1 -5 Last administered on 11/29/16 15:02; Admin Dose 1 TAB; Start 11/27/16 at 20: 00 Acetaminophen/ Hydrocodone Bitart ([place] (5/325)) 2 tab Q4H PRN PO PAIN LEVEL 6 -10 Last administered on 11/28/16 10:23; Admin Dose 2 TAB; Start 11/27/16 at 20 :00 Miscellaneous Information 1 ea NOTE XX ; Start 11/28/16 at 02:45 Glucose (Glutose) 15 gm Q15M PRN PO DECREASED GLUCOSE; Start 11/28/16 at 02:45 Glucose (Glutose) 22.5 gm Q15M PRN PO DECREASED GLUCOSE; Start 11/28/16 at 02: 45 Glucagon (Glucagen) 1 mg Q15M PRN IM DECREASED GLUCOSE; Start 11/28/16 at 02:45 Glucose (Glutose) 15 gm Q15M PRN BUCCAL DECREASED GLUCOSE; Start 11/28/16 at 02 :45 Insulin Glargine (Lantus) 15 unit QAM SC Last administered on 11/30/16 08:39; Admin Dose 15 UNIT; Start 11/28/16 at 14:30 Diagnostic Test (Pha) (Accucheck) 1 ea Q1H XX Last administered on 11/30/16 12 :26; Admin Dose 1 EA; Start 11/28/16 at 22:00 Dextrose (D50w Syringe) 25 ml Q15M PRN IV Till BS 80 mg/dL or above x2; Start 11/28/16 at 22:00 Dextrose (D50w Syringe) 50 ml Q15M PRN IV Till BS 80 mg/dL or above x2; Start 11/28/16 at 22:00 Furosemide 40 mg 40 mg DAILY IV Last administered on 11/30/16 08:38; Admin Dose 40 MG; Start 11/30/16 at 09:00 Ceftriaxone Sodium (Rocephin) 50 ml @ 100 mls/hr Q24H IVPB Last administered on 11/29/16 15:50; Admin Dose 100 MLS/HR; Start 11/29/16 at 15:30 Assessment/Plan Chief Complaint/Hosp Course Patient is very well-known to me from outpatient, She asked for me to see her in the hospital. she came to me as second opinion after C had coronary angiography at [facility] with echo yet that showed known ischemic cardiomyopathy with LV ejection fraction of 30% severe critical aortic stenosis. I had a JLUIS done at my old office and showed severe aortic stenosis confirmed I had a discussion with the patient that C will require surgery finally she underwent bioprosthetic aortic wall replacement by Dr. Mcnamara last night it 23 mm porcine wire was placed in our position. Patient is in ICU extubated alert and awake being paced at 80 bpm 100% underlying rhythm is junctional escape with complete heart block most likely secondary to post aVR edema around the area. Problems: Additional Assessment/Plan Pt is still pacing went down to 45 bpm but did not come through will wait till saturday Dr Low updated. MANUEL HOOVER MD Nov 30, 2016 14:28
--- NOTE | 2016-11-30 14:47 | RADRPT ---
Echocardiogram Report Patient Name: AMIRA BEY Gender: Female Date: 1970 Study Date: 28-Nov-2016 Magnetometer Operator: Shawna Winchester [facility] Location: 115 Ref. Physician: SANYA ALICIA Quality: Good Procedures: Transthoracic echocardiogram with complete 2D, M-Mode, and doppler examination. Indications: Evaluate Left Ventricular function. 2D/M Mode Doppler Measurement Value Normal Ranges Measurement Value Normal Ranges LVIDd 2D 4.2 3.5 - 5.6 cm AV Mean Yosvany 1.9 m/sec LVIDs 2D 2.7 2.1 - 4.1 cm AV Mean PG 17.2 mmHg LVPWd 2D 1.4 0.6 - 1.1 cm AV Peak Yosvany 2.9 m/sec IVSd 2D 1.2 0.6 - 1.1 cm AV Peak PG 33.8 mmHg AoR Diam 2D 2.4 2.0 - 3.7 cm AV VTI 51.3 cm EDV 2D 80.0 cm3 LVOT Peak Yosvany 0.9 m/sec ESV 2D 19.8 cm3 LVOT Peak PG 2.9 mmHg LA Dimen 2D 3.5 2.3 - 4.0 cm TR Peak Yosvany 2.8 m/sec TR Peak PG 30.7 mmHg RVSP 39.0 mmHg Findings Left Ventricle: Lower limits of normal systolic function. Normal left ventricular cavity size. Mild concentric left ventricular hypertrophy. Ejection fraction is visually estimated at 50 %. Right Ventricle: Normal right ventricular size. Normal right ventricular systolic function. Left Atrium: The left atrium is normal in size. Right Atrium: The right atrium is normal in size. Mitral Valve: Mitral valve leaflets appear mildly thickened. Trace mitral regurgitation. Aortic Valve: Aortic Valve Bio Prosthesis. Aortic valve Max velocity 2.91 m/sec. Max PG 33.80 mmHg. Mean PG 17.20 mmHg. Tricuspid Valve: Estimated peak PA systolic pressure 39 mmHg. There is mild tricuspid regurgitation. Pericardium: Normal pericardium with no significant pericardial effusion. Aorta: Normal aortic root. IVC: The IVC is not well visualized. Conclusions Lower limits of normal systolic function. Normal left ventricular cavity size. Mild concentric left ventricular hypertrophy. Ejection fraction is visually estimated at 50 %. Normal right ventricular size. Normal right ventricular systolic function. The left atrium is normal in size. The right atrium is normal in size. Mitral valve leaflets appear mildly thickened. Trace mitral regurgitation. Aortic Valve Bio Prosthesis. Aortic valve Max velocity 2.91 m/sec. Max PG 33.80 mmHg. Mean PG 17.20 mmHg. Electronically Signed By: Sanya Alicia 30-Nov-2016 14:47:08 -0800 Patient Name: AMIRA BEY Study Date: 28-Nov-2016 [id number]
[2016-11-30] MEDS: HYDROCODONE/APAP (5/325) TAB PO PRN (15:26)
[2016-11-30] MEDS: CEFTRIAXONE 1 GM/50 ML (PMX) 50 ML IVPB SCH (16:30)
[2016-11-30] MEDS: INSULIN ASPART [NOVOLOG] 3 ML PEN SC SCH ×2 (17:35→20:49)
--- NOTE | 2016-11-30 19:10 | PN ---
Date/Time of Note Date/Time of Note DATE: 11/30/16 TIME: 19:09 Assessment/Plan Lines/Catheters IV Catheter Type (from Nrsg): Cordis Nelson in Place (from Nrsg): No Assessment/Plan Chief Complaint/Hosp Course SP AVR CT [address] sxn ambulate continue pacing monitor Rhythm pulm toilet Problems: Subjective 24 Hr Interval Summary Constitutional: improved Pain Control: mild Exam/Review of Systems Vital Signs Vitals Vital Signs Date Time Temp Pulse Resp B/P Pulse Ox O2 Delivery O2 Flow Rate FiO2 11/30/16 18:00 71 24 154/127 99 11/30/16 16:00 98.1 11/30/16 10:00 4.0 11/30/16 07:00 Nasal Cannula 11/30/16 01:49 28 Intake and Output 11/29/16 11/29/16 11/30/16 15:00 23:00 07:00 Intake Total 588.0 ml 424.5 ml 488.7 ml Output Total 100 ml 315 ml 428 ml Balance 488.0 ml 109.5 ml 60.7 ml Exam ENMT: mucosa pink and moist, nl external ears & nose, nl lips & teeth, nl nasal mucosa & septum Neck: non-tender, supple Respiratory: clear to auscultation, normal air movement Cardiovascular: nl pulses, regular rate and rhythm Gastrointestinal: nl liver, spleen, non-tender, soft Results Result Diagram: 11/30/1643111/30/16431 JOSELINE NICOLE MD Nov 30, 2016 19:10
[2016-12-01] VITALS (24 sets, daily range): BP systolic 98–163; BP diastolic 60–92; PULSE 71–102; RESP 16–39
[2016-12-01] MEDS ORDERED: ACCUCHECK XX SCH (02:00)
[2016-12-01] MEDS: HYDROmorphONE 1 MG/ML SYG IV PRN ×3 (02:20→20:39)
[2016-12-01] MEDS: ACCUCHECK XX SCH (02:25)
[2016-12-01] MEDS: PANTOPRAZOLE 40 MG INJ IV SCH (05:48)
[2016-12-01 06:12] LABS: ALBUMIN 2.9 g/dl (3.3-4.9); POTASSIUM 4.2 mmol/L (3.5-5.1)
[2016-12-01 06:14] LABS: CREATININE 0.66 mg/dl (0.44-1.00)
[2016-12-01 06:15] LABS: ALBUMIN/GLOBULIN RATIO 1.16; BILIRUBIN,INDIRECT 0.2 mg/dl (0-1.1); BILIRUBIN,TOTAL 0.2 mg/dl (0.2-1.3); CALCIUM 8.3 mg/dl (8.4-10.2); TOTAL PROTEIN 5.4 g/dl (6.1-8.1)
[2016-12-01 06:24] LABS: BASOPHIL # 0.1 10^3/ul (0.0-0.1); BASOPHILS % 0.6 % (0.0-2.0); EOSINOPHILS # 0.3 10^3/ul (0.0-0.5); EOSINOPHILS % 2.9 % (0.0-7.0); HEMATOCRIT 29.7 % (37.0-47.0); HEMOGLOBIN 9.9 g/dl (12.0-16.0); LYMPHOCYTES # 2.1 10^3/ul (0.8-2.9); LYMPHOCYTES % 20.5 % (15.0-51.0); MEAN CORPUSCULAR HEMOGLOBIN 28.2 pg (29.0-33.0); MEAN CORPUSCULAR HGB CONC 33.2 g/dl (32.0-37.0); MEAN CORPUSCULAR VOLUME 84.9 fl (82.0-101.0); MEAN PLATELET VOLUME 8.6 fl (7.4-10.4); MONOCYTES % 10.1 % (0.0-11.0); NEUTROPHIL # 6.6 10^3/ul (1.6-7.5); NEUTROPHILS % 65.9 % (39.0-77.0); PLATELET COUNT 250 10^3/UL (140-440); RED CELL DISTRIBUTION WIDTH 16.8 % (11.5-14.5)
[2016-12-01 06:50] LABS: CONDITION 1; LH ANALYZER COMMENTS 1
[2016-12-01] MEDS: INSULIN ASPART [NOVOLOG] 3 ML PEN SC SCH ×4 (08:06→21:00)
[2016-12-01] MEDS: INSULIN GLARGINE [LANtus] 3 ML PEN SC SCH (09:01)
[2016-12-01] MEDS: FUROSEMIDE 40 MG INJ IV SCH (09:01)
[2016-12-01] MEDS: HYDROCODONE/APAP (5/325) TAB PO PRN (09:05)
--- NOTE | 2016-12-01 10:31 | CONS ---
Date/Time of Note Date/Time of Note DATE: 12/01/16 TIME: 10:20 Consult Date/Type/Reason Admit Date/Time Nov 26, 2016 at 10:43 Initial Consult Date 11/27/16 Type of Consultation: pulmonary Subjective Patient remained stable this morning awake alert and oriented Continues external pacing Objective Vital Signs Date Time Temp Pulse Resp B/P Pulse Ox O2 Delivery O2 Flow Rate FiO2 12/01/16 08:00 97.9 71 23 125/73 100 Nasal Cannula 12/01/16 02:55 2.0 11/30/16 01:49 28 Intake and Output 11/30/16 11/30/16 12/01/16 15:00 23:00 07:00 Intake Total 610.5 ml 307.2 ml Output Total 300 ml 1330 ml Balance 310.5 ml -1022.8 ml PHYSICAL EXAMINATION: GENERAL: Moderately obese lady, awake, alert, oriented, comfortable at rest, no acute distress. VITAL SIGNS: NECK: Supple. No JVD or lymphadenopathy. CARDIAC: S1, S2. Systolic ejection murmur CHEST: Diminished air entry bilaterally. ABDOMEN: Soft, nontender. No guarding or rebound. EXTREMITIES: No cyanosis, clubbing, 1+ edema. NEUROLOGIC: Generalized weakness, but no focal deficits. Results/Medications Result Diagram: 12/01/16 0440 12/01/16 0440 Results 24 hrs Laboratory Tests Test 11/30/16 10:28 11/30/16 11:09 11/30/16 12:25 11/30/16 13:01 Bedside Glucose 311 H 262 H 173 157 Test 11/30/16 16:44 11/30/16 20:43 12/01/16 02:22 12/01/16 04:40 Bedside Glucose 134 198 123 Alanine Aminotransferase (ALT/SGPT) 27 Albumin 2.9 L Albumin/Globulin Ratio 1.16 Alkaline Phosphatase 71 Anion Gap 15 Aspartate Amino Transf (AST/SGOT) 19 Basophils # 0.1 Basophils % 0.6 Blood Morphology Comment Blood Urea Nitrogen 27 H Calcium Level 8.3 L Carbon Dioxide Level 26 Chloride Level 102 Creatinine 0.66 Direct Bilirubin 0.00 Eosinophils # 0.3 Eosinophils % 2.9 Globulin 2.50 Glucose Level 113 Hematocrit 29.7 L Hemoglobin 9.9 L Indirect Bilirubin 0.2 Lymphocytes # 2.1 Lymphocytes % 20.5 Mean Corpuscular Hemoglobin 28.2 L Mean Corpuscular Hemoglobin Concent 33.2 Mean Corpuscular Volume 84.9 Mean Platelet Volume 8.6 Monocytes # 1.0 H Monocytes % 10.1 Neutrophils # 6.6 Neutrophils % 65.9 Nucleated Red Blood Cells # 0.0 Nucleated Red Blood Cells % 0.0 Platelet Count 250 # Potassium Level 4.2 Red Blood Count 3.50 L Red Cell Distribution Width 16.8 H Sodium Level 139 Total Bilirubin 0.2 Total Protein 5.4 L White Blood Count 10.0 Test 12/01/16 05:47 12/01/16 08:01 Bedside Glucose 136 143 Medications Current Medications Dopamine HCl/ Dextrose 250 ml @ 5.138 mls/ hr TITRATE IV ; Start 11/26/16 at 21: 30 Hydromorphone HCl (Dilaudid) 0.2 mg Q1H PRN IV PAIN LEVEL 1-5 Last administered on 11/29/16 02:07; Admin Dose 0.2 MG; Start 11/26/16 at 21:30 Hydromorphone HCl (Dilaudid) 0.4 mg Q1H PRN IV PAIN LEVEL 6-10 Last administered on 12/01/16 02:20; Admin Dose 0.4 MG; Start 11/26/16 at 21:30 Ondansetron HCl (Zofran Inj) 2 mg ONCE PRN IV Nausea; Start 11/26/16 at 21:30 Hydromorphone HCl (Dilaudid) 0.2 mg Q15M PRN IV PAIN LEVEL 1-5; Start 11/26/16 at 22:00 Hydromorphone HCl 0.4 mg 0.4 mg Q15M PRN IV PAIN LEVEL 6-10 Last administered on 11/27/16 00:07; Admin Dose 0.4 MG; Start 11/26/16 at 22:00 Magnesium Sulfate/ Dextrose (Magnesium Sulfate 1 Gm/D5W) 100 ml @ 100 mls/hr PRN PRN IVPB Mag < 2; Start 11/27/16 at 04:30 Pantoprazole 40 mg 40 mg DAILY@06 IV Last administered on 12/01/16 05:48; Admin Dose 40 MG; Start 11/27/16 at 06:00 Nitroglycerin/ Dextrose (Nitroglycerin 50 Mg/D5W (Pmx)) 250 ml @ 1.5 mls/hr TITRATE IV Last administered on 11/27/16 22:29; Admin Dose 30 MLS/HR; Start at 19:00 Acetaminophen/ Hydrocodone Bitart ([place] (5/325)) 1 tab Q4H PRN PO PAIN LEVEL 1 -5 Last administered on 11/29/16 15:02; Admin Dose 1 TAB; Start 11/27/16 at 20: 00 Acetaminophen/ Hydrocodone Bitart ([place] (5/325)) 2 tab Q4H PRN PO PAIN LEVEL 6 -10 Last administered on 12/01/16 09:05; Admin Dose 2 TAB; Start 11/27/16 at 20 :00 Miscellaneous Information 1 ea NOTE XX ; Start 11/28/16 at 02:45 Glucose (Glutose) 15 gm Q15M PRN PO DECREASED GLUCOSE; Start 11/28/16 at 02:45 Glucose (Glutose) 22.5 gm Q15M PRN PO DECREASED GLUCOSE; Start 11/28/16 at 02: 45 Glucagon (Glucagen) 1 mg Q15M PRN IM DECREASED GLUCOSE; Start 11/28/16 at 02:45 Glucose (Glutose) 15 gm Q15M PRN BUCCAL DECREASED GLUCOSE; Start 11/28/16 at 02 :45 Insulin Glargine (Lantus) 15 unit QAM SC Last administered on 12/01/16 09:01; Admin Dose 15 UNIT; Start 11/28/16 at 14:30 Furosemide 40 mg 40 mg DAILY IV Last administered on 12/01/16 09:01; Admin Dose 40 MG; Start 11/30/16 at 09:00 Ceftriaxone Sodium (Rocephin) 50 ml @ 100 mls/hr Q24H IVPB Last administered on 11/30/16 16:30; Admin Dose 100 MLS/HR; Start 11/29/16 at 15:30 Diagnostic Test (Pha) (Accucheck) 1 ea 02 XX Last administered on 12/01/16 02: 25; Admin Dose 1 EA; Start 12/01/16 at 02:00 Assessment/Plan Chief Complaint/Hosp Course IMPRESSION AND PLAN: 1. Status post Post-aortic valve replacement. 2. History of critical aortic sclerosis. 3. Postop hypoxemia secondary to alveolar hypoventilation and mild pulmonary edema. 4. Evidence of mild pulmonary edema. 5. Complete heart block requiring temporary pacing The patient will require: 1. Continued incentive spirometry. 2. Encourage out of bed. 3. Glycemic management. 4. DVT and GI prophylaxis. 5. Continue diuresis if tolerated. 6. Pending probable pacemaker placement Continue ICU monitoring Problems: GRUPO SÁNCHEZ MD, [facility] Dec 01, 2016 10:30
--- NOTE | 2016-12-01 10:47 | CONS ---
Date/Time of Note Date/Time of Note DATE: 12/01/16 TIME: 10:46 Consult Date/Type/Reason Admit Date/Time Nov 26, 2016 at 10:43 Initial Consult Date 11/27/16 Type of Consultation: Cardiology Objective Vital Signs Date Time Temp Pulse Resp B/P Pulse Ox O2 Delivery O2 Flow Rate FiO2 12/01/16 08:00 97.9 71 23 125/73 100 Nasal Cannula 12/01/16 02:55 2.0 11/30/16 01:49 28 Intake and Output 11/30/16 11/30/16 12/01/16 15:00 23:00 07:00 Intake Total 610.5 ml 307.2 ml Output Total 300 ml 1330 ml Balance 310.5 ml -1022.8 ml Results/Medications Result Diagram: 12/01/16 0440 12/01/16 0440 Results 24 hrs Laboratory Tests Test 11/30/16 11:09 11/30/16 12:25 11/30/16 13:01 11/30/16 16:44 Bedside Glucose 262 H 173 157 134 Test 11/30/16 20:43 12/01/16 02:22 12/01/16 04:40 12/01/16 05:47 Bedside Glucose 198 123 136 Alanine Aminotransferase (ALT/SGPT) 27 Albumin 2.9 L Albumin/Globulin Ratio 1.16 Alkaline Phosphatase 71 Anion Gap 15 Aspartate Amino Transf (AST/SGOT) 19 Basophils # 0.1 Basophils % 0.6 Blood Morphology Comment Blood Urea Nitrogen 27 H Calcium Level 8.3 L Carbon Dioxide Level 26 Chloride Level 102 Creatinine 0.66 Direct Bilirubin 0.00 Eosinophils # 0.3 Eosinophils % 2.9 Globulin 2.50 Glucose Level 113 Hematocrit 29.7 L Hemoglobin 9.9 L Indirect Bilirubin 0.2 Lymphocytes # 2.1 Lymphocytes % 20.5 Mean Corpuscular Hemoglobin 28.2 L Mean Corpuscular Hemoglobin Concent 33.2 Mean Corpuscular Volume 84.9 Mean Platelet Volume 8.6 Monocytes # 1.0 H Monocytes % 10.1 Neutrophils # 6.6 Neutrophils % 65.9 Nucleated Red Blood Cells # 0.0 Nucleated Red Blood Cells % 0.0 Platelet Count 250 # Potassium Level 4.2 Red Blood Count 3.50 L Red Cell Distribution Width 16.8 H Sodium Level 139 Total Bilirubin 0.2 Total Protein 5.4 L White Blood Count 10.0 Test 12/01/16 08:01 Bedside Glucose 143 Medications Current Medications Dopamine HCl/ Dextrose 250 ml @ 5.138 mls/ hr TITRATE IV ; Start 11/26/16 at 21: 30 Hydromorphone HCl (Dilaudid) 0.2 mg Q1H PRN IV PAIN LEVEL 1-5 Last administered on 11/29/16 02:07; Admin Dose 0.2 MG; Start 11/26/16 at 21:30 Hydromorphone HCl (Dilaudid) 0.4 mg Q1H PRN IV PAIN LEVEL 6-10 Last administered on 12/01/16 02:20; Admin Dose 0.4 MG; Start 11/26/16 at 21:30 Ondansetron HCl (Zofran Inj) 2 mg ONCE PRN IV Nausea; Start 11/26/16 at 21:30 Hydromorphone HCl (Dilaudid) 0.2 mg Q15M PRN IV PAIN LEVEL 1-5; Start 11/26/16 at 22:00 Hydromorphone HCl 0.4 mg 0.4 mg Q15M PRN IV PAIN LEVEL 6-10 Last administered on 11/27/16 00:07; Admin Dose 0.4 MG; Start 11/26/16 at 22:00 Magnesium Sulfate/ Dextrose (Magnesium Sulfate 1 Gm/D5W) 100 ml @ 100 mls/hr PRN PRN IVPB Mag < 2; Start 11/27/16 at 04:30 Pantoprazole 40 mg 40 mg DAILY@06 IV Last administered on 12/01/16 05:48; Admin Dose 40 MG; Start 11/27/16 at 06:00 Nitroglycerin/ Dextrose (Nitroglycerin 50 Mg/D5W (Pmx)) 250 ml @ 1.5 mls/hr TITRATE IV Last administered on 11/27/16 22:29; Admin Dose 30 MLS/HR; Start at 19:00 Acetaminophen/ Hydrocodone Bitart ([place] (5/325)) 1 tab Q4H PRN PO PAIN LEVEL 1 -5 Last administered on 11/29/16 15:02; Admin Dose 1 TAB; Start 11/27/16 at 20: 00 Acetaminophen/ Hydrocodone Bitart ([place] (5/325)) 2 tab Q4H PRN PO PAIN LEVEL 6 -10 Last administered on 12/01/16 09:05; Admin Dose 2 TAB; Start 11/27/16 at 20 :00 Miscellaneous Information 1 ea NOTE XX ; Start 11/28/16 at 02:45 Glucose (Glutose) 15 gm Q15M PRN PO DECREASED GLUCOSE; Start 11/28/16 at 02:45 Glucose (Glutose) 22.5 gm Q15M PRN PO DECREASED GLUCOSE; Start 11/28/16 at 02: 45 Glucagon (Glucagen) 1 mg Q15M PRN IM DECREASED GLUCOSE; Start 11/28/16 at 02:45 Glucose (Glutose) 15 gm Q15M PRN BUCCAL DECREASED GLUCOSE; Start 11/28/16 at 02 :45 Insulin Glargine (Lantus) 15 unit QAM SC Last administered on 12/01/16 09:01; Admin Dose 15 UNIT; Start 11/28/16 at 14:30 Furosemide 40 mg 40 mg DAILY IV Last administered on 12/01/16 09:01; Admin Dose 40 MG; Start 11/30/16 at 09:00 Ceftriaxone Sodium (Rocephin) 50 ml @ 100 mls/hr Q24H IVPB Last administered on 11/30/16 16:30; Admin Dose 100 MLS/HR; Start 11/29/16 at 15:30 Diagnostic Test (Pha) (Accucheck) 1 ea 02 XX Last administered on 12/01/16 02: 25; Admin Dose 1 EA; Start 12/01/16 at 02:00 Assessment/Plan Chief Complaint/Hosp Course Patient is very well-known to me from outpatient, She asked for me to see her in the hospital. she came to me as second opinion after C had coronary angiography at [facility] with echo yet that showed known ischemic cardiomyopathy with LV ejection fraction of 30% severe critical aortic stenosis. I had a JLUIS done at my old office and showed severe aortic stenosis confirmed I had a discussion with the patient that C will require surgery finally she underwent bioprosthetic aortic wall replacement by Dr. Mcnamara last night it 23 mm porcine wire was placed in our position. Patient is in ICU extubated alert and awake being paced at 80 bpm 100% underlying rhythm is junctional escape with complete heart block most likely secondary to post aVR edema around the area. Problems: Additional Assessment/Plan Pt still pacing PPM checked to 30s and she did not have any escape. I would still recommend waiting. Walking and AV node stimulation. Most likely she will recover with her AV node edema post surgery. If not Dr Low will decide for PPM. MANUEL HOOVER MD Dec 01, 2016 10:47
[2016-12-01] MEDS: CEFTRIAXONE 1 GM/50 ML (PMX) 50 ML IVPB SCH (16:29)
--- NOTE | 2016-12-01 18:37 | PN ---
Date/Time of Note Date/Time of Note DATE: 12/01/16 TIME: 18:36 Assessment/Plan Lines/Catheters IV Catheter Type (from Nrsg): Peripheral IV Nelson in Place (from Nrsg): No Assessment/Plan Chief Complaint/Hosp Course SP AVR CT [address] ambulate continue pacing monitor Rhythm may need pacemaker pulm toilet Problems: Subjective 24 Hr Interval Summary Constitutional: improved Pain Control: mild Exam/Review of Systems Vital Signs Vitals Vital Signs Date Time Temp Pulse Resp B/P Pulse Ox O2 Delivery O2 Flow Rate FiO2 12/01/16 17:00 71 37 136/65 100 Nasal Cannula 12/01/16 16:00 97.4 12/01/16 08:12 3.0 11/30/16 01:49 28 Intake and Output 11/30/16 11/30/16 12/01/16 15:00 23:00 07:00 Intake Total 610.5 ml 307.2 ml Output Total 300 ml 1330 ml Balance 310.5 ml -1022.8 ml Exam Neck: non-tender, supple Respiratory: clear to auscultation, normal air movement Cardiovascular: nl pulses, regular rate and rhythm Gastrointestinal: nl liver, spleen, non-tender, soft Results Result Diagram: 12/01/1643912/01/16439 JOSELINE NICOLE MD Dec 01, 2016 18:36
--- NOTE | 2016-12-01 19:23 | CONS ---
Date/Time of Note Date/Time of Note DATE: 12/01/16 TIME: 19:22 Assessment/Plan Assessment/Plan Chief Complaint/Hosp Course s/p avr dm mehrdad cad lung infilterate better plan ck labs ss insulin antibioic per cardio lovenox Problems: Consultation Date/Type/Reason Admit Date/Time Nov 26, 2016 at 10:43 Initial Consult Date 11/27/16 Type of Consultation: renal 24 HR Interval Summary Constitutional: no complaints Exam/Review of Systems Vital Signs Vitals Vital Signs Date Time Temp Pulse Resp B/P Pulse Ox O2 Delivery O2 Flow Rate FiO2 12/01/16 17:00 71 37 136/65 100 Nasal Cannula 12/01/16 16:00 97.4 12/01/16 08:12 3.0 11/30/16 01:49 28 Intake and Output 11/30/16 11/30/16 12/01/16 14:59 22:59 06:59 Intake Total 610.5 ml 307.2 ml Output Total 300 ml 1330 ml Balance 310.5 ml -1022.8 ml Exam Respiratory: diminished breath sounds Cardiovascular: regular rate and rhythm Gastrointestinal: soft Musculoskeletal: nl extremities to inspection Extremities: normal pulses Results Result Diagram: 12/01/16 0440 12/01/16 0440 Results 24 hrs Laboratory Tests Test 11/30/16 20:43 12/01/16 02:22 12/01/16 04:40 12/01/16 05:47 Bedside Glucose 198 123 136 Alanine Aminotransferase (ALT/SGPT) 27 Albumin 2.9 L Albumin/Globulin Ratio 1.16 Alkaline Phosphatase 71 Anion Gap 15 Aspartate Amino Transf (AST/SGOT) 19 Basophils # 0.1 Basophils % 0.6 Blood Morphology Comment Blood Urea Nitrogen 27 H Calcium Level 8.3 L Carbon Dioxide Level 26 Chloride Level 102 Creatinine 0.66 Direct Bilirubin 0.00 Eosinophils # 0.3 Eosinophils % 2.9 Globulin 2.50 Glucose Level 113 Hematocrit 29.7 L Hemoglobin 9.9 L Indirect Bilirubin 0.2 Lymphocytes # 2.1 Lymphocytes % 20.5 Mean Corpuscular Hemoglobin 28.2 L Mean Corpuscular Hemoglobin Concent 33.2 Mean Corpuscular Volume 84.9 Mean Platelet Volume 8.6 Monocytes # 1.0 H Monocytes % 10.1 Neutrophils # 6.6 Neutrophils % 65.9 Nucleated Red Blood Cells # 0.0 Nucleated Red Blood Cells % 0.0 Platelet Count 250 # Potassium Level 4.2 Red Blood Count 3.50 L Red Cell Distribution Width 16.8 H Sodium Level 139 Total Bilirubin 0.2 Total Protein 5.4 L White Blood Count 10.0 Test 12/01/16 08:01 12/01/16 11:49 12/01/16 17:15 Bedside Glucose 143 227 H 125 Medications Medications Current Medications Dopamine HCl/ Dextrose 250 ml @ 5.138 mls/ hr TITRATE IV ; Start 11/26/16 at 21: 30 Hydromorphone HCl (Dilaudid) 0.2 mg Q1H PRN IV PAIN LEVEL 1-5 Last administered on 11/29/16 02:07; Admin Dose 0.2 MG; Start 11/26/16 at 21:30 Hydromorphone HCl (Dilaudid) 0.4 mg Q1H PRN IV PAIN LEVEL 6-10 Last administered on 12/01/16 18:44; Admin Dose 0.4 MG; Start 11/26/16 at 21:30 Ondansetron HCl (Zofran Inj) 2 mg ONCE PRN IV Nausea; Start 11/26/16 at 21:30 Hydromorphone HCl (Dilaudid) 0.2 mg Q15M PRN IV PAIN LEVEL 1-5; Start 11/26/16 at 22:00 Hydromorphone HCl 0.4 mg 0.4 mg Q15M PRN IV PAIN LEVEL 6-10 Last administered on 11/27/16 00:07; Admin Dose 0.4 MG; Start 11/26/16 at 22:00 Magnesium Sulfate/ Dextrose (Magnesium Sulfate 1 Gm/D5W) 100 ml @ 100 mls/hr PRN PRN IVPB Mag < 2; Start 11/27/16 at 04:30 Pantoprazole 40 mg 40 mg DAILY@06 IV Last administered on 12/01/16 05:48; Admin Dose 40 MG; Start 11/27/16 at 06:00 Nitroglycerin/ Dextrose (Nitroglycerin 50 Mg/D5W (Pmx)) 250 ml @ 1.5 mls/hr TITRATE IV Last administered on 11/27/16 22:29; Admin Dose 30 MLS/HR; Start at 19:00 Acetaminophen/ Hydrocodone Bitart ([place] (5/325)) 1 tab Q4H PRN PO PAIN LEVEL 1 -5 Last administered on 11/29/16 15:02; Admin Dose 1 TAB; Start 11/27/16 at 20: 00 Acetaminophen/ Hydrocodone Bitart ([place] (5/325)) 2 tab Q4H PRN PO PAIN LEVEL 6 -10 Last administered on 12/01/16 09:05; Admin Dose 2 TAB; Start 11/27/16 at 20 :00 Miscellaneous Information 1 ea NOTE XX ; Start 11/28/16 at 02:45 Glucose (Glutose) 15 gm Q15M PRN PO DECREASED GLUCOSE; Start 11/28/16 at 02:45 Glucose (Glutose) 22.5 gm Q15M PRN PO DECREASED GLUCOSE; Start 11/28/16 at 02: 45 Glucagon (Glucagen) 1 mg Q15M PRN IM DECREASED GLUCOSE; Start 11/28/16 at 02:45 Glucose (Glutose) 15 gm Q15M PRN BUCCAL DECREASED GLUCOSE; Start 11/28/16 at 02 :45 Insulin Glargine (Lantus) 15 unit QAM SC Last administered on 12/01/16 09:01; Admin Dose 15 UNIT; Start 11/28/16 at 14:30 Furosemide 40 mg 40 mg DAILY IV Last administered on 12/01/16 09:01; Admin Dose 40 MG; Start 11/30/16 at 09:00 Ceftriaxone Sodium (Rocephin) 50 ml @ 100 mls/hr Q24H IVPB Last administered on 12/01/16 16:29; Admin Dose 100 MLS/HR; Start 11/29/16 at 15:30 Diagnostic Test (Pha) (Accucheck) 1 ea 02 XX Last administered on 12/01/16 02: 25; Admin Dose 1 EA; Start 12/01/16 at 02:00 Hydralazine HCl (Apresoline) 25 mg TID PO Last administered on 12/01/16 13:01 ; Admin Dose 25 MG; Start 12/01/16 at 13:00 KILLIAN FLORES MD Dec 01, 2016 19:22
[2016-12-02] VITALS (27 sets, daily range): BP systolic 93–146; BP diastolic 55–121; PULSE 71–84; RESP 11–31
[2016-12-02] MEDS: HYDROmorphONE 1 MG/ML SYG IV PRN ×3 (01:19→20:52)
[2016-12-02] MEDS: ACCUCHECK XX SCH (02:00)
[2016-12-02] MEDS: PANTOPRAZOLE 40 MG INJ IV SCH (06:45)
[2016-12-02] MEDS: INSULIN ASPART [NOVOLOG] 3 ML PEN SC SCH ×4 (07:35→21:00)
[2016-12-02] MEDS: CEFTRIAXONE 1 GM/50 ML (PMX) 50 ML IVPB SCH (08:38)
[2016-12-02] MEDS: FUROSEMIDE 40 MG INJ IV SCH (08:38)
[2016-12-02] MEDS: INSULIN GLARGINE [LANtus] 3 ML PEN SC SCH (08:42)
[2016-12-02] MEDS: ENOXAPARIN 40 MG/0.4 ML SYG SC SCH (08:51)
[2016-12-02] MEDS: HYDROCODONE/APAP (5/325) TAB PO PRN ×2 (10:46→18:16)
[2016-12-02 11:00] LABS: BASOPHILS % 0.4 % (0.0-2.0); EOSINOPHILS # 0.2 10^3/ul (0.0-0.5); EOSINOPHILS % 1.8 % (0.0-7.0); HEMATOCRIT 29.8 % (37.0-47.0); LYMPHOCYTES # 1.4 10^3/ul (0.8-2.9); LYMPHOCYTES % 14.4 % (15.0-51.0); MEAN CORPUSCULAR HEMOGLOBIN 28.3 pg (29.0-33.0); MEAN CORPUSCULAR HGB CONC 33.6 g/dl (32.0-37.0); MEAN CORPUSCULAR VOLUME 84.3 fl (82.0-101.0); MEAN PLATELET VOLUME 7.9 fl (7.4-10.4); MONOCYTE # 0.9 10^3/ul (0.3-0.9); MONOCYTES % 8.8 % (0.0-11.0); NEUTROPHIL # 7.3 10^3/ul (1.6-7.5); NEUTROPHILS % 74.6 % (39.0-77.0); PLATELET COUNT 247 10^3/UL (140-440); RED BLOOD COUNT 3.54 10^6/ul (4.20-5.40); RED CELL DISTRIBUTION WIDTH 16.4 % (11.5-14.5); UNCORRECTED WBC 9.8 10^3/ul (4.8-10.8); WHITE BLOOD COUNT 9.8 10^3/ul (4.8-10.8)
[2016-12-02 11:05] LABS: CONDITION 1; LH ANALYZER COMMENTS 1
[2016-12-02 11:08] LABS: ALBUMIN 3.1 g/dl (3.3-4.9)
[2016-12-02 11:09] LABS: POTASSIUM 4.1 mmol/L (3.5-5.1)
[2016-12-02 11:11] LABS: BILIRUBIN,INDIRECT 0.1 mg/dl (0-1.1); BILIRUBIN,TOTAL 0.1 mg/dl (0.2-1.3); CALCIUM 8.4 mg/dl (8.4-10.2); CREATININE 0.84 mg/dl (0.44-1.00); TOTAL PROTEIN 6.2 g/dl (6.1-8.1)
--- NOTE | 2016-12-02 12:27 | CONS ---
Date/Time of Note Date/Time of Note DATE: 12/02/16 TIME: 12:21 Consult Date/Type/Reason Admit Date/Time Nov 26, 2016 at 10:43 Initial Consult Date 11/27/16 Type of Consultation: Card Objective Vital Signs Date Time Temp Pulse Resp B/P Pulse Ox O2 Delivery O2 Flow Rate FiO2 12/02/16 11:00 77 28 124/70 100 Nasal Cannula 2.0 12/02/16 08:00 98.0 11/30/16 01:49 28 Intake and Output 12/01/16 12/01/16 12/02/16 15:00 23:00 07:00 Intake Total 250 ml 120 ml 120 ml Output Total 583 ml 725 ml 300 ml Balance -333 ml -605 ml -180 ml Results/Medications Result Diagram: 12/02/16 1045 12/02/16 1045 Results 24 hrs Laboratory Tests Test 12/01/16 17:15 12/01/16 21:58 12/02/16 07:48 12/02/16 10:45 Bedside Glucose 125 160 129 Alanine Aminotransferase (ALT/SGPT) 20 Albumin 3.1 L Albumin/Globulin Ratio 1.00 Alkaline Phosphatase 69 Anion Gap 14 Aspartate Amino Transf (AST/SGOT) 10 L Basophils # 0.0 Basophils % 0.4 Blood Morphology Comment Blood Urea Nitrogen 28 H Calcium Level 8.4 Carbon Dioxide Level 26 Chloride Level 100 Creatinine 0.84 Direct Bilirubin 0.00 Eosinophils # 0.2 Eosinophils % 1.8 Globulin 3.10 Glucose Level 225 #H Hematocrit 29.8 L Hemoglobin 10.0 L Indirect Bilirubin 0.1 Lymphocytes # 1.4 Lymphocytes % 14.4 L Mean Corpuscular Hemoglobin 28.3 L Mean Corpuscular Hemoglobin Concent 33.6 Mean Corpuscular Volume 84.3 Mean Platelet Volume 7.9 Monocytes # 0.9 Monocytes % 8.8 Neutrophils # 7.3 Neutrophils % 74.6 Nucleated Red Blood Cells # 0.0 Nucleated Red Blood Cells % 0.0 Platelet Count 247 Potassium Level 4.1 Red Blood Count 3.54 L Red Cell Distribution Width 16.4 H Sodium Level 136 Total Bilirubin 0.1 L Total Protein 6.2 White Blood Count 9.8 Test 12/02/16 11:51 Bedside Glucose 209 Medications Current Medications Dopamine HCl/ Dextrose 250 ml @ 5.138 mls/ hr TITRATE IV ; Start 11/26/16 at 21: 30 Hydromorphone HCl (Dilaudid) 0.2 mg Q1H PRN IV PAIN LEVEL 1-5 Last administered on 11/29/16 02:07; Admin Dose 0.2 MG; Start 11/26/16 at 21:30 Hydromorphone HCl (Dilaudid) 0.4 mg Q1H PRN IV PAIN LEVEL 6-10 Last administered on 12/02/16 03:34; Admin Dose 0.4 MG; Start 11/26/16 at 21:30 Ondansetron HCl (Zofran Inj) 2 mg ONCE PRN IV Nausea; Start 11/26/16 at 21:30 Hydromorphone HCl (Dilaudid) 0.2 mg Q15M PRN IV PAIN LEVEL 1-5; Start 11/26/16 at 22:00 Hydromorphone HCl 0.4 mg 0.4 mg Q15M PRN IV PAIN LEVEL 6-10 Last administered on 11/27/16 00:07; Admin Dose 0.4 MG; Start 11/26/16 at 22:00 Magnesium Sulfate/ Dextrose (Magnesium Sulfate 1 Gm/D5W) 100 ml @ 100 mls/hr PRN PRN IVPB Mag < 2; Start 11/27/16 at 04:30 Pantoprazole 40 mg 40 mg DAILY@06 IV Last administered on 12/02/16 06:45; Admin Dose 40 MG; Start 11/27/16 at 06:00 Nitroglycerin/ Dextrose (Nitroglycerin 50 Mg/D5W (Pmx)) 250 ml @ 1.5 mls/hr TITRATE IV Last administered on 11/27/16 22:29; Admin Dose 30 MLS/HR; Start at 19:00 Acetaminophen/ Hydrocodone Bitart ([place] (5/325)) 1 tab Q4H PRN PO PAIN LEVEL 1 -5 Last administered on 12/02/16 10:46; Admin Dose 1 TAB; Start 11/27/16 at 20: 00 Acetaminophen/ Hydrocodone Bitart ([place] (5/325)) 2 tab Q4H PRN PO PAIN LEVEL 6 -10 Last administered on 12/01/16 09:05; Admin Dose 2 TAB; Start 11/27/16 at 20 :00 Miscellaneous Information 1 ea NOTE XX ; Start 11/28/16 at 02:45 Glucose (Glutose) 15 gm Q15M PRN PO DECREASED GLUCOSE; Start 11/28/16 at 02:45 Glucose (Glutose) 22.5 gm Q15M PRN PO DECREASED GLUCOSE; Start 11/28/16 at 02: 45 Glucagon (Glucagen) 1 mg Q15M PRN IM DECREASED GLUCOSE; Start 11/28/16 at 02:45 Glucose (Glutose) 15 gm Q15M PRN BUCCAL DECREASED GLUCOSE; Start 11/28/16 at 02 :45 Insulin Glargine (Lantus) 15 unit QAM SC Last administered on 12/02/16 08:42; Admin Dose 15 UNIT; Start 11/28/16 at 14:30 Furosemide 40 mg 40 mg DAILY IV Last administered on 12/02/16 08:38; Admin Dose 40 MG; Start 11/30/16 at 09:00 Ceftriaxone Sodium (Rocephin) 50 ml @ 100 mls/hr Q24H IVPB Last administered on 12/02/16 08:38; Admin Dose 100 MLS/HR; Start 11/29/16 at 15:30 Diagnostic Test (Pha) (Accucheck) 1 ea 02 XX Last administered on 12/01/16 02: 25; Admin Dose 1 EA; Start 12/01/16 at 02:00 Hydralazine HCl (Apresoline) 25 mg TID PO Last administered on 12/02/16 08:39 ; Admin Dose 25 MG; Start 12/01/16 at 13:00 Enoxaparin Sodium (Lovenox) 40 mg DAILY SC Last administered on 12/02/16 08:51 ; Admin Dose 40 MG; Start 12/02/16 at 09:00 Assessment/Plan Chief Complaint/Hosp Course Patient is very well-known to me from outpatient, She asked for me to see her in the hospital. she came to me as second opinion after C had coronary angiography at [facility] with echo yet that showed known ischemic cardiomyopathy with LV ejection fraction of 30% severe critical aortic stenosis. I had a JLUIS done at my old office and showed severe aortic stenosis confirmed I had a discussion with the patient that C will require surgery finally she underwent bioprosthetic aortic wall replacement by Dr. Mcnamara last night it 23 mm porcine wire was placed in our position. Patient is in ICU extubated alert and awake being paced at 80 bpm 100% underlying rhythm is junctional escape with complete heart block most likely secondary to post aVR edema around the area. Problems: Additional Assessment/Plan Pt is still pacer dependant She has some bigeminy with PVCs coming up. Tried to go down in pacer up to 30s but still was pacer dependant. On hydralazine We can still wait for PPM but i would defer to CT surgery. She does have some PVCs I believe she may have her edema resolve and may come back in a day or two. MANUEL HOOVER MD Dec 02, 2016 12:27
--- NOTE | 2016-12-02 12:52 | PN ---
Date/Time of Note Date/Time of Note DATE: 12/02/16 TIME: 12:50 Assessment/Plan Lines/Catheters IV Catheter Type (from Nrsg): Peripheral IV Nelson in Place (from Nrsg): No (Commode at bedside.) Assessment/Plan Chief Complaint/Hosp Course SP AVR CT [address] ambulate still pacer dependent continue pacing monitor Rhythm may need pacemaker pulm toilet Problems: Subjective 24 Hr Interval Summary Constitutional: improved Pain Control: mild Exam/Review of Systems Vital Signs Vitals Vital Signs Date Time Temp Pulse Resp B/P Pulse Ox O2 Delivery O2 Flow Rate FiO2 12/02/16 12:00 72 12/02/16 11:00 28 124/70 100 Nasal Cannula 2.0 12/02/16 08:00 98.0 11/30/16 01:49 28 Intake and Output 12/01/16 12/01/16 12/02/16 15:00 23:00 07:00 Intake Total 250 ml 120 ml 120 ml Output Total 583 ml 725 ml 300 ml Balance -333 ml -605 ml -180 ml Exam ENMT: mucosa pink and moist, nl external ears & nose, nl lips & teeth, nl nasal mucosa & septum Neck: non-tender, supple Respiratory: clear to auscultation, normal air movement Cardiovascular: nl pulses, regular rate and rhythm Results Result Diagram: 12/02/16 1045 12/02/16 1045 JOSELINE NICOLE MD Dec 02, 2016 12:52
--- NOTE | 2016-12-02 13:01 | CONS ---
Date/Time of Note Date/Time of Note DATE: 12/02/16 TIME: 13:00 Consult Date/Type/Reason Admit Date/Time Nov 26, 2016 at 10:43 Initial Consult Date 11/27/16 Type of Consultation: pulmonary Subjective Awake alert oriented comfortable at rest Objective Vital Signs Date Time Temp Pulse Resp B/P Pulse Ox O2 Delivery O2 Flow Rate FiO2 12/02/16 12:00 72 12/02/16 11:00 28 124/70 100 Nasal Cannula 2.0 12/02/16 08:00 98.0 11/30/16 01:49 28 Intake and Output 12/01/16 12/01/16 12/02/16 15:00 23:00 07:00 Intake Total 250 ml 120 ml 120 ml Output Total 583 ml 725 ml 300 ml Balance -333 ml -605 ml -180 ml PHYSICAL EXAMINATION: GENERAL: Moderately obese lady, awake, alert, oriented, comfortable at rest, no acute distress. VITAL SIGNS: NECK: Supple. No JVD or lymphadenopathy. CARDIAC: S1, S2. Systolic ejection murmur CHEST: Diminished air entry bilaterally. ABDOMEN: Soft, nontender. No guarding or rebound. EXTREMITIES: No cyanosis, clubbing, 1+ edema. NEUROLOGIC: Generalized weakness, but no focal deficits. Results/Medications Result Diagram: 12/02/16 1045 12/02/16 1045 Results 24 hrs Laboratory Tests Test 12/01/16 17:15 12/01/16 21:58 12/02/16 07:48 12/02/16 10:45 Bedside Glucose 125 160 129 Alanine Aminotransferase (ALT/SGPT) 20 Albumin 3.1 L Albumin/Globulin Ratio 1.00 Alkaline Phosphatase 69 Anion Gap 14 Aspartate Amino Transf (AST/SGOT) 10 L Basophils # 0.0 Basophils % 0.4 Blood Morphology Comment Blood Urea Nitrogen 28 H Calcium Level 8.4 Carbon Dioxide Level 26 Chloride Level 100 Creatinine 0.84 Direct Bilirubin 0.00 Eosinophils # 0.2 Eosinophils % 1.8 Globulin 3.10 Glucose Level 225 #H Hematocrit 29.8 L Hemoglobin 10.0 L Indirect Bilirubin 0.1 Lymphocytes # 1.4 Lymphocytes % 14.4 L Mean Corpuscular Hemoglobin 28.3 L Mean Corpuscular Hemoglobin Concent 33.6 Mean Corpuscular Volume 84.3 Mean Platelet Volume 7.9 Monocytes # 0.9 Monocytes % 8.8 Neutrophils # 7.3 Neutrophils % 74.6 Nucleated Red Blood Cells # 0.0 Nucleated Red Blood Cells % 0.0 Platelet Count 247 Potassium Level 4.1 Red Blood Count 3.54 L Red Cell Distribution Width 16.4 H Sodium Level 136 Total Bilirubin 0.1 L Total Protein 6.2 White Blood Count 9.8 Test 12/02/16 11:51 Bedside Glucose 209 Medications Current Medications Dopamine HCl/ Dextrose 250 ml @ 5.138 mls/ hr TITRATE IV ; Start 11/26/16 at 21: 30 Hydromorphone HCl (Dilaudid) 0.2 mg Q1H PRN IV PAIN LEVEL 1-5 Last administered on 11/29/16 02:07; Admin Dose 0.2 MG; Start 11/26/16 at 21:30 Hydromorphone HCl (Dilaudid) 0.4 mg Q1H PRN IV PAIN LEVEL 6-10 Last administered on 12/02/16 03:34; Admin Dose 0.4 MG; Start 11/26/16 at 21:30 Ondansetron HCl (Zofran Inj) 2 mg ONCE PRN IV Nausea; Start 11/26/16 at 21:30 Hydromorphone HCl (Dilaudid) 0.2 mg Q15M PRN IV PAIN LEVEL 1-5; Start 11/26/16 at 22:00 Hydromorphone HCl 0.4 mg 0.4 mg Q15M PRN IV PAIN LEVEL 6-10 Last administered on 11/27/16 00:07; Admin Dose 0.4 MG; Start 11/26/16 at 22:00 Magnesium Sulfate/ Dextrose (Magnesium Sulfate 1 Gm/D5W) 100 ml @ 100 mls/hr PRN PRN IVPB Mag < 2; Start 11/27/16 at 04:30 Pantoprazole 40 mg 40 mg DAILY@06 IV Last administered on 12/02/16 06:45; Admin Dose 40 MG; Start 11/27/16 at 06:00 Nitroglycerin/ Dextrose (Nitroglycerin 50 Mg/D5W (Pmx)) 250 ml @ 1.5 mls/hr TITRATE IV Last administered on 11/27/16 22:29; Admin Dose 30 MLS/HR; Start at 19:00 Acetaminophen/ Hydrocodone Bitart ([place] (5/325)) 1 tab Q4H PRN PO PAIN LEVEL 1 -5 Last administered on 12/02/16 10:46; Admin Dose 1 TAB; Start 11/27/16 at 20: 00 Acetaminophen/ Hydrocodone Bitart ([place] (5/325)) 2 tab Q4H PRN PO PAIN LEVEL 6 -10 Last administered on 12/01/16 09:05; Admin Dose 2 TAB; Start 11/27/16 at 20 :00 Miscellaneous Information 1 ea NOTE XX ; Start 11/28/16 at 02:45 Glucose (Glutose) 15 gm Q15M PRN PO DECREASED GLUCOSE; Start 11/28/16 at 02:45 Glucose (Glutose) 22.5 gm Q15M PRN PO DECREASED GLUCOSE; Start 11/28/16 at 02: 45 Glucagon (Glucagen) 1 mg Q15M PRN IM DECREASED GLUCOSE; Start 11/28/16 at 02:45 Glucose (Glutose) 15 gm Q15M PRN BUCCAL DECREASED GLUCOSE; Start 11/28/16 at 02 :45 Insulin Glargine (Lantus) 15 unit QAM SC Last administered on 12/02/16 08:42; Admin Dose 15 UNIT; Start 11/28/16 at 14:30 Furosemide 40 mg 40 mg DAILY IV Last administered on 12/02/16 08:38; Admin Dose 40 MG; Start 11/30/16 at 09:00 Ceftriaxone Sodium (Rocephin) 50 ml @ 100 mls/hr Q24H IVPB Last administered on 12/02/16 08:38; Admin Dose 100 MLS/HR; Start 11/29/16 at 15:30 Diagnostic Test (Pha) (Accucheck) 1 ea 02 XX Last administered on 12/01/16 02: 25; Admin Dose 1 EA; Start 12/01/16 at 02:00 Hydralazine HCl (Apresoline) 25 mg TID PO Last administered on 12/02/16 08:39 ; Admin Dose 25 MG; Start 12/01/16 at 13:00 Enoxaparin Sodium (Lovenox) 40 mg DAILY SC Last administered on 12/02/16 08:51 ; Admin Dose 40 MG; Start 12/02/16 at 09:00 Assessment/Plan Chief Complaint/Hosp Course IMPRESSION AND PLAN: 1. Status post Post-aortic valve replacement. 2. History of critical aortic sclerosis. 3. Postop hypoxemia secondary to alveolar hypoventilation and mild pulmonary edema. 4. Evidence of mild pulmonary edema. 5. Complete heart block requiring temporary pacing The patient will require: 1. Continued incentive spirometry. 2. Encourage out of bed. 3. Glycemic management. 4. DVT and GI prophylaxis. 5. Continue diuresis if tolerated. 6. Pending probable pacemaker placement Continue ICU monitoring Problems: GRUPO SÁNCHEZ MD, [facility] Dec 02, 2016 13:00
--- NOTE | 2016-12-02 15:41 | PN ---
Date/Time of Note Date/Time of Note DATE: 12/02/16 TIME: 15:39 Assessment/Plan VTE Prophylaxis VTE Prophylaxis Intervention: other Lines/Catheters IV Catheter Type (from Nrs): Peripheral IV Urinary Cath still in place: No (Commode at bedside.) Assessment/Plan Chief Complaint/Hosp Course S/P AVR CAD LOW EF ARRTHYTHMIA RENAL INSUFFICIENCY lung infilterate better plan ck labs ss insulin antibioic per cardio lovenox PACEMAKER Problems: Subjective 24 Hr Interval Summary Respiratory: shortness of breath (+) Cardiovascular: no complaints Exam/Review of Systems Vital Signs Vitals Vital Signs Date Time Temp Pulse Resp B/P Pulse Ox O2 Delivery O2 Flow Rate FiO2 12/02/16 14:00 84 20 93/55 100 Nasal Cannula 2.0 12/02/16 12:00 98.7 11/30/16 01:49 28 Intake and Output 12/01/16 12/01/16 12/02/16 15:00 23:00 07:00 Intake Total 250 ml 120 ml 120 ml Output Total 583 ml 725 ml 300 ml Balance -333 ml -605 ml -180 ml Exam Neck: supple Respiratory: diminished breath sounds Cardiovascular: irregular rhythm, other (click+) Gastrointestinal: bowel sounds (+), soft Extremities: edema (tr) Results Result Diagram: 12/02/16 1045 12/02/16 1045 Results 24 hrs Laboratory Tests Test 12/01/16 17:15 12/01/16 21:58 12/02/16 07:48 12/02/16 10:45 Bedside Glucose 125 160 129 Alanine Aminotransferase (ALT/SGPT) 20 Albumin 3.1 L Albumin/Globulin Ratio 1.00 Alkaline Phosphatase 69 Anion Gap 14 Aspartate Amino Transf (AST/SGOT) 10 L Basophils # 0.0 Basophils % 0.4 Blood Morphology Comment Blood Urea Nitrogen 28 H Calcium Level 8.4 Carbon Dioxide Level 26 Chloride Level 100 Creatinine 0.84 Direct Bilirubin 0.00 Eosinophils # 0.2 Eosinophils % 1.8 Globulin 3.10 Glucose Level 225 #H Hematocrit 29.8 L Hemoglobin 10.0 L Indirect Bilirubin 0.1 Lymphocytes # 1.4 Lymphocytes % 14.4 L Mean Corpuscular Hemoglobin 28.3 L Mean Corpuscular Hemoglobin Concent 33.6 Mean Corpuscular Volume 84.3 Mean Platelet Volume 7.9 Monocytes # 0.9 Monocytes % 8.8 Neutrophils # 7.3 Neutrophils % 74.6 Nucleated Red Blood Cells # 0.0 Nucleated Red Blood Cells % 0.0 Platelet Count 247 Potassium Level 4.1 Red Blood Count 3.54 L Red Cell Distribution Width 16.4 H Sodium Level 136 Total Bilirubin 0.1 L Total Protein 6.2 White Blood Count 9.8 Test 12/02/16 11:51 Bedside Glucose 209 Medications Medications Current Medications Dopamine HCl/ Dextrose 250 ml @ 5.138 mls/ hr TITRATE IV ; Start 11/26/16 at 21: 30 Hydromorphone HCl (Dilaudid) 0.2 mg Q1H PRN IV PAIN LEVEL 1-5 Last administered on 11/29/16 02:07; Admin Dose 0.2 MG; Start 11/26/16 at 21:30 Hydromorphone HCl (Dilaudid) 0.4 mg Q1H PRN IV PAIN LEVEL 6-10 Last administered on 12/02/16 03:34; Admin Dose 0.4 MG; Start 11/26/16 at 21:30 Ondansetron HCl (Zofran Inj) 2 mg ONCE PRN IV Nausea; Start 11/26/16 at 21:30 Hydromorphone HCl (Dilaudid) 0.2 mg Q15M PRN IV PAIN LEVEL 1-5; Start 11/26/16 at 22:00 Hydromorphone HCl 0.4 mg 0.4 mg Q15M PRN IV PAIN LEVEL 6-10 Last administered on 11/27/16 00:07; Admin Dose 0.4 MG; Start 11/26/16 at 22:00 Magnesium Sulfate/ Dextrose (Magnesium Sulfate 1 Gm/D5W) 100 ml @ 100 mls/hr PRN PRN IVPB Mag < 2; Start 11/27/16 at 04:30 Pantoprazole 40 mg 40 mg DAILY@06 IV Last administered on 12/02/16 06:45; Admin Dose 40 MG; Start 11/27/16 at 06:00 Nitroglycerin/ Dextrose (Nitroglycerin 50 Mg/D5W (Pmx)) 250 ml @ 1.5 mls/hr TITRATE IV Last administered on 11/27/16 22:29; Admin Dose 30 MLS/HR; Start at 19:00 Acetaminophen/ Hydrocodone Bitart ([place] (5/325)) 1 tab Q4H PRN PO PAIN LEVEL 1 -5 Last administered on 12/02/16 10:46; Admin Dose 1 TAB; Start 11/27/16 at 20: 00 Acetaminophen/ Hydrocodone Bitart ([place] (5/325)) 2 tab Q4H PRN PO PAIN LEVEL 6 -10 Last administered on 12/01/16 09:05; Admin Dose 2 TAB; Start 11/27/16 at 20 :00 Miscellaneous Information 1 ea NOTE XX ; Start 11/28/16 at 02:45 Glucose (Glutose) 15 gm Q15M PRN PO DECREASED GLUCOSE; Start 11/28/16 at 02:45 Glucose (Glutose) 22.5 gm Q15M PRN PO DECREASED GLUCOSE; Start 11/28/16 at 02: 45 Glucagon (Glucagen) 1 mg Q15M PRN IM DECREASED GLUCOSE; Start 11/28/16 at 02:45 Glucose (Glutose) 15 gm Q15M PRN BUCCAL DECREASED GLUCOSE; Start 11/28/16 at 02 :45 Insulin Glargine (Lantus) 15 unit QAM SC Last administered on 12/02/16 08:42; Admin Dose 15 UNIT; Start 11/28/16 at 14:30 Furosemide 40 mg 40 mg DAILY IV Last administered on 12/02/16 08:38; Admin Dose 40 MG; Start 11/30/16 at 09:00 Ceftriaxone Sodium (Rocephin) 50 ml @ 100 mls/hr Q24H IVPB Last administered on 12/02/16 08:38; Admin Dose 100 MLS/HR; Start 11/29/16 at 15:30 Diagnostic Test (Pha) (Accucheck) 1 ea 02 XX Last administered on 12/01/16 02: 25; Admin Dose 1 EA; Start 12/01/16 at 02:00 Hydralazine HCl (Apresoline) 25 mg TID PO Last administered on 12/02/16 13:50 ; Admin Dose 25 MG; Start 12/01/16 at 13:00 Enoxaparin Sodium (Lovenox) 40 mg DAILY SC Last administered on 12/02/16 08:51 ; Admin Dose 40 MG; Start 12/02/16 at 09:00 KILLIAN FLORES MD Dec 02, 2016 15:41
[2016-12-03] VITALS (48 sets, daily range): BP systolic 78–175; BP diastolic 50–103; PULSE 39–115; RESP 13–34
[2016-12-03] MEDS: HYDROmorphONE 1 MG/ML SYG IV PRN ×3 (00:55→20:28)
[2016-12-03] MEDS: ACCUCHECK XX SCH (02:00)
[2016-12-03] MEDS: NITROGLYCERIN 50 MG/D5W (PMX) 250 ML IV SCH (02:17)
[2016-12-03 03:02] LABS: Allen Test ACCEPTAB; Arterial Base Excess 1.2 mmol/L (-3.0-3); Arterial COHb 0.3 % (0.0-3.0); Arterial Fraction of Oxyhgb 96.2 % (93.0-99.0); Arterial HCO3 25.8 mmol/L (22.0-26.0); Arterial MetHb 0.2 % (0.0-1.5); Arterial Total Hemglobin 10.6 g/dl (12.0-18.0); MODE NASAL CANNULA
--- NOTE | 2016-12-03 03:14 | RADRPT ---
PROCEDURE: XR Chest. CLINICAL INDICATION: Postoperative. Shortness of breath.. TECHNIQUE: Single frontal chest x-ray. COMPARISON: 11/30/2016 FINDINGS: The patient status post sternotomy. Lungs of the removed. Heart is enlarged. There is hypoventila tion. There is slight decrease in left retrocardiac atelectasis. There is mild right basilar atele ctasis. There is a probable small left pleural effusion. There is no pneumothorax. The osseous str uctures are unremarkable. IMPRESSION: Status post removal of lines. No pneumothorax. Hypoventilation with slight decrease in left basila r atelectasis. Probable small left pleural effusion. Otherwise no change. RPTAT: [facility]VK .Wilfredo Crandall MD, Date Time Electronically viewed and signed by .Wilfredo Crandall MD, on 12/03/2016 03:14 .K/
[2016-12-03] MEDS: PANTOPRAZOLE 40 MG INJ IV SCH (06:30)
[2016-12-03 06:40] LABS: POTASSIUM 4.1 mmol/L (3.5-5.1)
[2016-12-03 06:42] LABS: CREATININE 0.75 mg/dl (0.44-1.00)
[2016-12-03 06:43] LABS: BASOPHILS % 0.2 % (0.0-2.0); CALCIUM 8.5 mg/dl (8.4-10.2); EOSINOPHILS # 0.2 10^3/ul (0.0-0.5); EOSINOPHILS % 2.3 % (0.0-7.0); HEMATOCRIT 29.4 % (37.0-47.0); HEMOGLOBIN 9.8 g/dl (12.0-16.0); LYMPHOCYTES # 1.8 10^3/ul (0.8-2.9); MEAN CORPUSCULAR HEMOGLOBIN 28.2 pg (29.0-33.0); MEAN CORPUSCULAR HGB CONC 33.3 g/dl (32.0-37.0); MEAN CORPUSCULAR VOLUME 84.7 fl (82.0-101.0); MEAN PLATELET VOLUME 8.4 fl (7.4-10.4); MONOCYTE # 1.1 10^3/ul (0.3-0.9); NEUTROPHILS % 65.5 % (39.0-77.0); PLATELET COUNT 248 10^3/UL (140-440); RED BLOOD COUNT 3.47 10^6/ul (4.20-5.40); RED CELL DISTRIBUTION WIDTH 16.7 % (11.5-14.5); UNCORRECTED WBC 9.1 10^3/ul (4.8-10.8); WHITE BLOOD COUNT 9.1 10^3/ul (4.8-10.8)
[2016-12-03 06:51] LABS: CONDITION 1; LH ANALYZER COMMENTS 1
[2016-12-03] MEDS: INSULIN ASPART [NOVOLOG] 3 ML PEN SC SCH ×4 (08:47→21:00)
[2016-12-03] MEDS: FUROSEMIDE 40 MG INJ IV SCH (08:49)
[2016-12-03] MEDS: ENOXAPARIN 40 MG/0.4 ML SYG SC SCH (08:51)
[2016-12-03] MEDS: INSULIN GLARGINE [LANtus] 3 ML PEN SC SCH (08:54)
--- NOTE | 2016-12-03 09:06 | CONS ---
Date/Time of Note Date/Time of Note DATE: 12/03/16 TIME: 09:03 Consult Date/Type/Reason Admit Date/Time Nov 26, 2016 at 10:43 Initial Consult Date 11/27/16 Type of Consultation: Card Objective Vital Signs Date Time Temp Pulse Resp B/P Pulse Ox O2 Delivery O2 Flow Rate FiO2 12/03/16 08:00 84 26 130/95 100 Nasal Cannula 3.0 12/03/16 07:30 98.7 12/02/16 20:24 21 Intake and Output 12/02/16 12/02/16 12/03/16 15:00 23:00 07:00 Intake Total 600 ml 440 ml 98 ml Output Total 350 ml 950 ml 300 ml Balance 250 ml -510 ml -202 ml Results/Medications Result Diagram: 12/03/16 0520 12/03/16 0520 Results 24 hrs Laboratory Tests Test 12/02/16 10:45 12/02/16 11:51 12/02/16 17:20 12/02/16 22:43 Alanine Aminotransferase (ALT/SGPT) 20 Albumin 3.1 L Albumin/Globulin Ratio 1.00 Alkaline Phosphatase 69 Anion Gap 14 Aspartate Amino Transf (AST/SGOT) 10 L Basophils # 0.0 Basophils % 0.4 Blood Morphology Comment Blood Urea Nitrogen 28 H Calcium Level 8.4 Carbon Dioxide Level 26 Chloride Level 100 Creatinine 0.84 Direct Bilirubin 0.00 Eosinophils # 0.2 Eosinophils % 1.8 Globulin 3.10 Glucose Level 225 #H Hematocrit 29.8 L Hemoglobin 10.0 L Indirect Bilirubin 0.1 Lymphocytes # 1.4 Lymphocytes % 14.4 L Mean Corpuscular Hemoglobin 28.3 L Mean Corpuscular Hemoglobin Concent 33.6 Mean Corpuscular Volume 84.3 Mean Platelet Volume 7.9 Monocytes # 0.9 Monocytes % 8.8 Neutrophils # 7.3 Neutrophils % 74.6 Nucleated Red Blood Cells # 0.0 Nucleated Red Blood Cells % 0.0 Platelet Count 247 Potassium Level 4.1 Red Blood Count 3.54 L Red Cell Distribution Width 16.4 H Sodium Level 136 Total Bilirubin 0.1 L Total Protein 6.2 White Blood Count 9.8 Bedside Glucose 209 170 172 Test 12/03/16 02:50 12/03/16 05:20 12/03/16 07:20 Arterial Blood HCO3 25.8 Arterial Blood Base Excess 1.2 Arterial Blood Oxygen Saturation 96.7 Rehan Test ACCEPTAB Arterial Blood Gas Puncture Site Right Radial Arterial Blood Carboxyhemoglobin 0.3 Arterial Blood Date Drawn 12/03/2016 2:54:17 AM Arterial Blood Methemoglobin 0.2 Arterial Blood pCO2 (Temp correct) 41.0 Arterial Blood pH (Temp corrected) 7.417 Arterial Blood pO2 (Temp corrected) 96.7 Blood Gas A-a O2 Differential 69.0 H Blood Gas Actual Respiration Rate 23 Blood Gas Modality NASAL CANNULA Blood Gas Notified Time 12/03/2016 3:02:29 AM Blood Gas Notified [facility] Blood Gas Specimen Source Blood arterial Blood Gas Temperature 37.0 FiO2 30.0 Oxyhemoglobin Percent 96.2 Total Hemoglobin 10.6 L Anion Gap 16 Basophils # 0.0 Basophils % 0.2 Blood Morphology Comment Blood Urea Nitrogen 29 H Calcium Level 8.5 Carbon Dioxide Level 25 Chloride Level 101 Creatinine 0.75 Eosinophils # 0.2 Eosinophils % 2.3 Glucose Level 154 Hematocrit 29.4 L Hemoglobin 9.8 L Lymphocytes # 1.8 Lymphocytes % 20.0 Mean Corpuscular Hemoglobin 28.2 L Mean Corpuscular Hemoglobin Concent 33.3 Mean Corpuscular Volume 84.7 Mean Platelet Volume 8.4 Monocytes # 1.1 H Monocytes % 12.0 H Neutrophils # 6.0 Neutrophils % 65.5 Nucleated Red Blood Cells # 0.0 Nucleated Red Blood Cells % 0.0 Platelet Count 248 Potassium Level 4.1 Red Blood Count 3.47 L Red Cell Distribution Width 16.7 H Sodium Level 138 White Blood Count 9.1 Bedside Glucose 167 Medications Current Medications Dopamine HCl/ Dextrose 250 ml @ 5.138 mls/ hr TITRATE IV ; Start 11/26/16 at 21: 30 Hydromorphone HCl (Dilaudid) 0.2 mg Q1H PRN IV PAIN LEVEL 1-5 Last administered on 11/29/16 02:07; Admin Dose 0.2 MG; Start 11/26/16 at 21:30 Hydromorphone HCl (Dilaudid) 0.4 mg Q1H PRN IV PAIN LEVEL 6-10 Last administered on 12/03/16 06:32; Admin Dose 0.4 MG; Start 11/26/16 at 21:30 Ondansetron HCl (Zofran Inj) 2 mg ONCE PRN IV Nausea; Start 11/26/16 at 21:30 Hydromorphone HCl (Dilaudid) 0.2 mg Q15M PRN IV PAIN LEVEL 1-5; Start 11/26/16 at 22:00 Hydromorphone HCl 0.4 mg 0.4 mg Q15M PRN IV PAIN LEVEL 6-10 Last administered on 11/27/16 00:07; Admin Dose 0.4 MG; Start 11/26/16 at 22:00 Magnesium Sulfate/ Dextrose (Magnesium Sulfate 1 Gm/D5W) 100 ml @ 100 mls/hr PRN PRN IVPB Mag < 2; Start 11/27/16 at 04:30 Pantoprazole 40 mg 40 mg DAILY@06 IV Last administered on 12/03/16 06:30; Admin Dose 40 MG; Start 11/27/16 at 06:00 Nitroglycerin/ Dextrose (Nitroglycerin 50 Mg/D5W (Pmx)) 250 ml @ 1.5 mls/hr TITRATE IV Last administered on 12/03/16 02:17; Admin Dose 3 MLS/HR; Start 09/03 at 19:00 Acetaminophen/ Hydrocodone Bitart ([place] (5/325)) 1 tab Q4H PRN PO PAIN LEVEL 1 -5 Last administered on 12/02/16 18:16; Admin Dose 1 TAB; Start 11/27/16 at 20: 00 Acetaminophen/ Hydrocodone Bitart ([place] (5/325)) 2 tab Q4H PRN PO PAIN LEVEL 6 -10 Last administered on 12/01/16 09:05; Admin Dose 2 TAB; Start 11/27/16 at 20 :00 Miscellaneous Information 1 ea NOTE XX ; Start 11/28/16 at 02:45 Glucose (Glutose) 15 gm Q15M PRN PO DECREASED GLUCOSE; Start 11/28/16 at 02:45 Glucose (Glutose) 22.5 gm Q15M PRN PO DECREASED GLUCOSE; Start 11/28/16 at 02: 45 Glucagon (Glucagen) 1 mg Q15M PRN IM DECREASED GLUCOSE; Start 11/28/16 at 02:45 Glucose (Glutose) 15 gm Q15M PRN BUCCAL DECREASED GLUCOSE; Start 11/28/16 at 02 :45 Insulin Glargine (Lantus) 15 unit QAM SC Last administered on 12/03/16 08:54; Admin Dose 15 UNIT; Start 11/28/16 at 14:30 Furosemide 40 mg 40 mg DAILY IV Last administered on 12/03/16 08:49; Admin Dose 40 MG; Start 11/30/16 at 09:00 Ceftriaxone Sodium (Rocephin) 50 ml @ 100 mls/hr Q24H IVPB Last administered on 12/02/16 08:38; Admin Dose 100 MLS/HR; Start 11/29/16 at 15:30 Diagnostic Test (Pha) (Accucheck) 1 ea 02 XX Last administered on 12/01/16 02: 25; Admin Dose 1 EA; Start 12/01/16 at 02:00 Enoxaparin Sodium (Lovenox) 40 mg DAILY SC Last administered on 12/03/16 08:51 ; Admin Dose 40 MG; Start 12/02/16 at 09:00 Hydralazine HCl (Apresoline) 50 mg TID PO Last administered on 12/03/16 08:49 ; Admin Dose 50 MG; Start 12/03/16 at 03:00 Assessment/Plan Chief Complaint/Hosp Course Patient is very well-known to me from outpatient, She asked for me to see her in the hospital. she came to me as second opinion after C had coronary angiography at [facility] with echo yet that showed known ischemic cardiomyopathy with LV ejection fraction of 30% severe critical aortic stenosis. I had a JLUIS done at my old office and showed severe aortic stenosis confirmed I had a discussion with the patient that C will require surgery finally she underwent bioprosthetic aortic wall replacement by Dr. Mcnamara last night it 23 mm porcine wire was placed in our position. Patient is in ICU extubated alert and awake being paced at 80 bpm 100% underlying rhythm is junctional escape with complete heart block most likely secondary to post aVR edema around the area. Problems: Additional Assessment/Plan Epigastric pain last night, may be related to Diaphragmetic stimulaiton by pacerwire. She is still pacer dependant. No escape or junctional yet. We can wait another day untill her stomach settels down and see. If she dosnt recover she will need PPM. I will f/u MANUEL HOOVER MD Dec 03, 2016 09:06
[2016-12-03] MEDS: HYDROCODONE/APAP (5/325) TAB PO PRN ×2 (09:53→16:02)
--- NOTE | 2016-12-03 11:10 | CONS ---
Date/Time of Note Date/Time of Note DATE: 12/03/16 TIME: 11:09 Consult Date/Type/Reason Admit Date/Time Nov 26, 2016 at 10:43 Initial Consult Date 11/27/16 Type of Consultation: pulmonary Subjective Abdominal discomfort overnight No nausea this morning Still requiring pacing with no evidence of escape rhythm Objective Vital Signs Date Time Temp Pulse Resp B/P Pulse Ox O2 Delivery O2 Flow Rate FiO2 12/03/16 10:30 84 26 147/53 100 Nasal Cannula 12/03/16 08:00 3.0 12/03/16 07:30 98.7 12/02/16 20:24 21 Intake and Output 12/02/16 12/02/16 12/03/16 15:00 23:00 07:00 Intake Total 600 ml 440 ml 98 ml Output Total 350 ml 950 ml 300 ml Balance 250 ml -510 ml -202 ml PHYSICAL EXAMINATION: GENERAL: Moderately obese lady, awake, alert, oriented, comfortable at rest, no acute distress. VITAL SIGNS: NECK: Supple. No JVD or lymphadenopathy. CARDIAC: S1, S2. Systolic ejection murmur CHEST: Diminished air entry bilaterally. ABDOMEN: Soft, nontender. No guarding or rebound. EXTREMITIES: No cyanosis, clubbing, 1+ edema. NEUROLOGIC: Generalized weakness, but no focal deficits. Results/Medications Result Diagram: 12/03/16 0520 12/03/16 0520 Results 24 hrs Laboratory Tests Test 12/02/16 11:51 12/02/16 17:20 12/02/16 22:43 12/03/16 02:50 Bedside Glucose 209 170 172 Arterial Blood HCO3 25.8 Arterial Blood Base Excess 1.2 Arterial Blood Oxygen Saturation 96.7 Rehan Test ACCEPTAB Arterial Blood Gas Puncture Site Right Radial Arterial Blood Carboxyhemoglobin 0.3 Arterial Blood Date Drawn 12/03/2016 2:54:17 AM Arterial Blood Methemoglobin 0.2 Arterial Blood pCO2 (Temp correct) 41.0 Arterial Blood pH (Temp corrected) 7.417 Arterial Blood pO2 (Temp corrected) 96.7 Blood Gas A-a O2 Differential 69.0 H Blood Gas Actual Respiration Rate 23 Blood Gas Modality NASAL CANNULA Blood Gas Notified Time 12/03/2016 3:02:29 AM Blood Gas 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 Blood Gas Specimen Source Blood arterial Blood Gas Temperature 37.0 FiO2 30.0 Oxyhemoglobin Percent 96.2 Total Hemoglobin 10.6 L Test 12/03/16 05:20 12/03/16 07:20 Anion Gap 16 Basophils # 0.0 Basophils % 0.2 Blood Morphology Comment Blood Urea Nitrogen 29 H Calcium Level 8.5 Carbon Dioxide Level 25 Chloride Level 101 Creatinine 0.75 Eosinophils # 0.2 Eosinophils % 2.3 Glucose Level 154 Hematocrit 29.4 L Hemoglobin 9.8 L Lymphocytes # 1.8 Lymphocytes % 20.0 Mean Corpuscular Hemoglobin 28.2 L Mean Corpuscular Hemoglobin Concent 33.3 Mean Corpuscular Volume 84.7 Mean Platelet Volume 8.4 Monocytes # 1.1 H Monocytes % 12.0 H Neutrophils # 6.0 Neutrophils % 65.5 Nucleated Red Blood Cells # 0.0 Nucleated Red Blood Cells % 0.0 Platelet Count 248 Potassium Level 4.1 Red Blood Count 3.47 L Red Cell Distribution Width 16.7 H Sodium Level 138 White Blood Count 9.1 Bedside Glucose 167 Medications Current Medications Dopamine HCl/ Dextrose 250 ml @ 5.138 mls/ hr TITRATE IV ; Start 11/26/16 at 21: 30 Hydromorphone HCl (Dilaudid) 0.2 mg Q1H PRN IV PAIN LEVEL 1-5 Last administered on 11/29/16 02:07; Admin Dose 0.2 MG; Start 11/26/16 at 21:30 Hydromorphone HCl (Dilaudid) 0.4 mg Q1H PRN IV PAIN LEVEL 6-10 Last administered on 12/03/16 06:32; Admin Dose 0.4 MG; Start 11/26/16 at 21:30 Ondansetron HCl (Zofran Inj) 2 mg ONCE PRN IV Nausea; Start 11/26/16 at 21:30 Hydromorphone HCl (Dilaudid) 0.2 mg Q15M PRN IV PAIN LEVEL 1-5; Start 11/26/16 at 22:00 Hydromorphone HCl 0.4 mg 0.4 mg Q15M PRN IV PAIN LEVEL 6-10 Last administered on 11/27/16 00:07; Admin Dose 0.4 MG; Start 11/26/16 at 22:00 Magnesium Sulfate/ Dextrose (Magnesium Sulfate 1 Gm/D5W) 100 ml @ 100 mls/hr PRN PRN IVPB Mag < 2; Start 11/27/16 at 04:30 Pantoprazole 40 mg 40 mg DAILY@06 IV Last administered on 12/03/16 06:30; Admin Dose 40 MG; Start 11/27/16 at 06:00 Nitroglycerin/ Dextrose (Nitroglycerin 50 Mg/D5W (Pmx)) 250 ml @ 1.5 mls/hr TITRATE IV Last administered on 12/03/16 02:17; Admin Dose 3 MLS/HR; Start 09/03 at 19:00 Acetaminophen/ Hydrocodone Bitart ([place] (5/325)) 1 tab Q4H PRN PO PAIN LEVEL 1 -5 Last administered on 12/03/16 09:53; Admin Dose 1 TAB; Start 11/27/16 at 20: 00 Acetaminophen/ Hydrocodone Bitart ([place] (5/325)) 2 tab Q4H PRN PO PAIN LEVEL 6 -10 Last administered on 12/01/16 09:05; Admin Dose 2 TAB; Start 11/27/16 at 20 :00 Miscellaneous Information 1 ea NOTE XX ; Start 11/28/16 at 02:45 Glucose (Glutose) 15 gm Q15M PRN PO DECREASED GLUCOSE; Start 11/28/16 at 02:45 Glucose (Glutose) 22.5 gm Q15M PRN PO DECREASED GLUCOSE; Start 11/28/16 at 02: 45 Glucagon (Glucagen) 1 mg Q15M PRN IM DECREASED GLUCOSE; Start 11/28/16 at 02:45 Glucose (Glutose) 15 gm Q15M PRN BUCCAL DECREASED GLUCOSE; Start 11/28/16 at 02 :45 Insulin Glargine (Lantus) 15 unit QAM SC Last administered on 12/03/16 08:54; Admin Dose 15 UNIT; Start 11/28/16 at 14:30 Furosemide 40 mg 40 mg DAILY IV Last administered on 12/03/16 08:49; Admin Dose 40 MG; Start 11/30/16 at 09:00 Ceftriaxone Sodium (Rocephin) 50 ml @ 100 mls/hr Q24H IVPB Last administered on 12/02/16 08:38; Admin Dose 100 MLS/HR; Start 11/29/16 at 15:30 Diagnostic Test (Pha) (Accucheck) 1 ea 02 XX Last administered on 12/01/16 02: 25; Admin Dose 1 EA; Start 12/01/16 at 02:00 Enoxaparin Sodium (Lovenox) 40 mg DAILY SC Last administered on 12/03/16 08:51 ; Admin Dose 40 MG; Start 12/02/16 at 09:00 Hydralazine HCl (Apresoline) 50 mg TID PO Last administered on 12/03/16 08:49 ; Admin Dose 50 MG; Start 12/03/16 at 03:00 Assessment/Plan Chief Complaint/Hosp Course IMPRESSION AND PLAN: 1. Status post Post-aortic valve replacement. 2. History of critical aortic sclerosis. 3. Postop hypoxemia secondary to alveolar hypoventilation and mild pulmonary edema. 4. Evidence of mild pulmonary edema. 5. Complete heart block requiring temporary pacing The patient will require: 1. Continued incentive spirometry. 2. Encourage out of bed. 3. Glycemic management. 4. DVT and GI prophylaxis. 5. Continue diuresis if tolerated. 6. Pending probable pacemaker placement Continue ICU monitoring Problems: GRUPO SÁNCHEZ MD[facility] Dec 03, 2016 11:09
[2016-12-03 11:26] LABS: MAGNESIUM 2.4 mg/dl (1.7-2.5); PHOSPHORUS 4.4 mg/dl (2.5-4.9)
[2016-12-03] MEDS: CEFTRIAXONE 1 GM/50 ML (PMX) 50 ML IVPB SCH (14:20)
--- NOTE | 2016-12-03 18:29 | PN ---
Date/Time of Note Date/Time of Note DATE: 12/03/16 TIME: 18:28 Assessment/Plan Lines/Catheters IV Catheter Type (from Nrsg): Saline Lock Assessment/Plan Chief Complaint/Hosp Course SP AVR CT [address] ambulate still pacer dependent continue pacing monitor Rhythm will need pacemaker pulm toilet Problems: Subjective 24 Hr Interval Summary Constitutional: improved Pain Control: mild Exam/Review of Systems Vital Signs Vitals Vital Signs Date Time Temp Pulse Resp B/P Pulse Ox O2 Delivery O2 Flow Rate FiO2 12/03/16 17:00 71 18 139/78 99 12/03/16 16:00 98.3 12/03/16 11:53 3.0 32 12/03/16 10:30 Nasal Cannula Intake and Output 12/02/16 12/02/16 12/03/16 15:00 23:00 07:00 Intake Total 600 ml 440 ml 98 ml Output Total 350 ml 950 ml 300 ml Balance 250 ml -510 ml -202 ml Exam ENMT: mucosa pink and moist, nl external ears & nose, nl lips & teeth, nl nasal mucosa & septum Neck: non-tender, supple Respiratory: clear to auscultation, normal air movement Cardiovascular: nl pulses, regular rate and rhythm Results Result Diagram: 12/03/16 0520 12/03/16 0520 JOSELINE NICOLE MD Dec 03, 2016 18:29
[2016-12-03] MEDS ORDERED: IOHEXOL 300MG/ML 30 ML BTL ONE (19:44)
[2016-12-03] MEDS ORDERED: HEPARIN 1000 UNITS/NS (A-LINE) 0 ML ONE (19:44)
[2016-12-03] MEDS ORDERED: HEPARIN 1000 UNITS/ML 10 ML INJ ONE (19:44)
[2016-12-03] MEDS ORDERED: VANCOMYCIN 1 GM (PMX) 250 ML IVPB SCH (20:00)
--- NOTE | 2016-12-03 20:11 | PN ---
Date/Time of Note Date/Time of Note DATE: 12/03/16 TIME: 20:10 Assessment/Plan VTE Prophylaxis VTE Prophylaxis Intervention: other Lines/Catheters IV Catheter Type (from Nrs): Saline Lock Assessment/Plan Chief Complaint/Hosp Course S/P AVR CAD LOW EF ARRTHYTHMIA RENAL INSUFFICIENCY better lung infilterate better plan ck labs ss insulin antibioic per cardio PACEMAKER per cardio Problems: Subjective 24 Hr Interval Summary Cardiovascular: no complaints Gastrointestinal: no complaints Genitourinary: no complaints Exam/Review of Systems Vital Signs Vitals Vital Signs Date Time Temp Pulse Resp B/P Pulse Ox O2 Delivery O2 Flow Rate FiO2 12/03/16 18:00 71 19 143/85 100 12/03/16 16:00 98.3 12/03/16 11:53 3.0 32 12/03/16 10:30 Nasal Cannula Intake and Output 12/02/16 12/02/16 12/03/16 15:00 23:00 07:00 Intake Total 600 ml 440 ml 98 ml Output Total 350 ml 950 ml 300 ml Balance 250 ml -510 ml -202 ml Exam Respiratory: clear to auscultation Cardiovascular: regular rate and rhythm Gastrointestinal: soft Musculoskeletal: nl extremities to inspection Extremities: normal pulses Results Result Diagram: 12/03/16 0520 12/03/16 0520 Results 24 hrs Laboratory Tests Test 12/02/16 22:43 12/03/16 02:50 12/03/16 05:15 12/03/16 05:20 Bedside Glucose 172 Arterial Blood HCO3 25.8 Arterial Blood Base Excess 1.2 Arterial Blood Oxygen Saturation 96.7 Rehan Test ACCEPTAB Arterial Blood Gas Puncture Site Right Radial Arterial Blood Carboxyhemoglobin 0.3 Arterial Blood Date Drawn 12/03/2016 2:54:17 AM Arterial Blood Methemoglobin 0.2 Arterial Blood pCO2 (Temp correct) 41.0 Arterial Blood pH (Temp corrected) 7.417 Arterial Blood pO2 (Temp corrected) 96.7 Blood Gas A-a O2 Differential 69.0 H Blood Gas Actual Respiration Rate 23 Blood Gas Modality NASAL CANNULA Blood Gas Notified Time 12/03/2016 3:02:29 AM Blood Gas Notified Whom lisette shah divemaster Blood Gas Specimen Source Blood arterial Blood Gas Temperature 37.0 FiO2 30.0 Oxyhemoglobin Percent 96.2 Total Hemoglobin 10.6 L Magnesium Level 2.4 Phosphorus Level 4.4 Anion Gap 16 Basophils # 0.0 Basophils % 0.2 Blood Morphology Comment Blood Urea Nitrogen 29 H Calcium Level 8.5 Carbon Dioxide Level 25 Chloride Level 101 Creatinine 0.75 Eosinophils # 0.2 Eosinophils % 2.3 Glucose Level 154 Hematocrit 29.4 L Hemoglobin 9.8 L Lymphocytes # 1.8 Lymphocytes % 20.0 Mean Corpuscular Hemoglobin 28.2 L Mean Corpuscular Hemoglobin Concent 33.3 Mean Corpuscular Volume 84.7 Mean Platelet Volume 8.4 Monocytes # 1.1 H Monocytes % 12.0 H Neutrophils # 6.0 Neutrophils % 65.5 Nucleated Red Blood Cells # 0.0 Nucleated Red Blood Cells % 0.0 Platelet Count 248 Potassium Level 4.1 Red Blood Count 3.47 L Red Cell Distribution Width 16.7 H Sodium Level 138 White Blood Count 9.1 Test 12/03/16 07:20 12/03/16 14:11 12/03/16 17:21 Bedside Glucose 167 190 200 Medications Medications Current Medications Dopamine HCl/ Dextrose 250 ml @ 5.138 mls/ hr TITRATE IV ; Start 11/26/16 at 21: 30 Hydromorphone HCl (Dilaudid) 0.2 mg Q1H PRN IV PAIN LEVEL 1-5 Last administered on 11/29/16 02:07; Admin Dose 0.2 MG; Start 11/26/16 at 21:30 Hydromorphone HCl (Dilaudid) 0.4 mg Q1H PRN IV PAIN LEVEL 6-10 Last administered on 12/03/16 06:32; Admin Dose 0.4 MG; Start 11/26/16 at 21:30 Ondansetron HCl (Zofran Inj) 2 mg ONCE PRN IV Nausea; Start 11/26/16 at 21:30 Hydromorphone HCl (Dilaudid) 0.2 mg Q15M PRN IV PAIN LEVEL 1-5; Start 11/26/16 at 22:00 Hydromorphone HCl 0.4 mg 0.4 mg Q15M PRN IV PAIN LEVEL 6-10 Last administered on 11/27/16 00:07; Admin Dose 0.4 MG; Start 11/26/16 at 22:00 Magnesium Sulfate/ Dextrose (Magnesium Sulfate 1 Gm/D5W) 100 ml @ 100 mls/hr PRN PRN IVPB Mag < 2; Start 11/27/16 at 04:30 Pantoprazole 40 mg 40 mg DAILY@06 IV Last administered on 12/03/16 06:30; Admin Dose 40 MG; Start 11/27/16 at 06:00 Nitroglycerin/ Dextrose (Nitroglycerin 50 Mg/D5W (Pmx)) 250 ml @ 1.5 mls/hr TITRATE IV Last administered on 12/03/16 02:17; Admin Dose 3 MLS/HR; Start 09/03 at 19:00 Acetaminophen/ Hydrocodone Bitart (Lando (5/325)) 1 tab Q4H PRN PO PAIN LEVEL 1 -5 Last administered on 12/03/16 16:02; Admin Dose 1 TAB; Start 11/27/16 at 20: 00 Acetaminophen/ Hydrocodone Bitart (Lando (5/325)) 2 tab Q4H PRN PO PAIN LEVEL 6 -10 Last administered on 12/01/16 09:05; Admin Dose 2 TAB; Start 11/27/16 at 20 :00 Miscellaneous Information 1 ea NOTE XX ; Start 11/28/16 at 02:45 Glucose (Glutose) 15 gm Q15M PRN PO DECREASED GLUCOSE; Start 11/28/16 at 02:45 Glucose (Glutose) 22.5 gm Q15M PRN PO DECREASED GLUCOSE; Start 11/28/16 at 02: 45 Glucagon (Glucagen) 1 mg Q15M PRN IM DECREASED GLUCOSE; Start 11/28/16 at 02:45 Glucose (Glutose) 15 gm Q15M PRN BUCCAL DECREASED GLUCOSE; Start 11/28/16 at 02 :45 Insulin Glargine (Lantus) 15 unit QAM SC Last administered on 12/03/16 08:54; Admin Dose 15 UNIT; Start 11/28/16 at 14:30 Furosemide 40 mg 40 mg DAILY IV Last administered on 12/03/16 08:49; Admin Dose 40 MG; Start 11/30/16 at 09:00 Ceftriaxone Sodium (Rocephin) 50 ml @ 100 mls/hr Q24H IVPB Last administered on 12/03/16 14:20; Admin Dose 100 MLS/HR; Start 11/29/16 at 15:30 Diagnostic Test (Pha) (Accucheck) 1 ea 02 XX Last administered on 12/01/16 02: 25; Admin Dose 1 EA; Start 12/01/16 at 02:00 Enoxaparin Sodium (Lovenox) 40 mg DAILY SC Last administered on 12/03/16 08:51 ; Admin Dose 40 MG; Start 12/02/16 at 09:00 Hydralazine HCl 50 mg 50 mg TID PO Last administered on 12/03/16 14:20; Admin Dose 50 MG; Start 12/03/16 at 03:00 Vancomycin HCl (Vancocin) 250 ml @ 125 mls/hr ONCE IVPB ; Start 12/03/16 at 20: 00; Stop 12/03/16 at 21:59 KILLIAN FLORES MD Dec 03, 2016 20:11
[2016-12-03] MEDS ORDERED: PROPOFOL 20 ML ONE (20:28)
[2016-12-03] MEDS ORDERED: MIDAZOLAM 1 MG/ML 2 ML INJ ONE (20:28)
[2016-12-03] MEDS ORDERED: LIDOCAINE 2% (SDV) 5 ML INJ ONE (20:28)
[2016-12-03] MEDS ORDERED: FENTAnyl 50 MCG/ML VIAL ONE ×2 (20:28→22:20)
[2016-12-03] MEDS ORDERED: LIDOCAINE 2%/EPI 30 ML INJ ONE ×2 (21:42→21:52)
[2016-12-03] MEDS ORDERED: ONDANSETRON 4 MG INJ ONE (22:10)
[2016-12-03] MEDS ORDERED: HEMOSTATIC MATRIX SYG ZFS ONE (22:15)
[2016-12-03] MEDS ORDERED: THROMBIN 5000 UNIT VIAL ONE (22:17)
[2016-12-03] MEDS ORDERED: METOPROLOL 5 MG INJ IV PRN (23:00)
[2016-12-03] MEDS: METOPROLOL 25 MG TAB GTB SCH (23:02)
[2016-12-04] VITALS (24 sets, daily range): BP systolic 103–138; BP diastolic 48–100; PULSE 63–104; RESP 11–30
[2016-12-04] MEDS: ACCUCHECK XX SCH (02:00)
[2016-12-04] MEDS: HYDROCODONE/APAP (5/325) TAB PO PRN ×4 (03:31→20:26)
[2016-12-04] MEDS: PANTOPRAZOLE 40 MG INJ IV SCH (04:58)
[2016-12-04] MEDS: HYDROmorphONE 1 MG/ML SYG IV PRN ×3 (05:01→19:21)
--- NOTE | 2016-12-04 05:42 | CONS ---
DATE OF ADMISSION: 11/26/2016 DATE OF CONSULTATION: 12/03/2016 TYPE OF CONSULTATION: Cardiac electrophysiology. REFERRING PHYSICIAN: Dr. Alicia INDICATION FOR CONSULTATION: To implant a dual-chamber pacemaker. HISTORY OF PRESENT ILLNESS: The patient received a bioprosthetic aortic valve replacement on 2016. Immediately after the aortic valve was replaced, the patient had an underlying complete heart block. The patient required pacing continuously. On a daily basis, the external pacemaker, which was connected epicardially, was turned down to look for underlying rhythm; however, the patient continued to be in complete heart block. It has been approximately 7.5 days now, and the patient continues to have an underlying complete hea rt block. Today, I myself turned down the pacemaker rate to 30 beats per minute, and he has 3:1 hig h grade AV block for which the patient will require a pacemaker implant in order to continue living. At this point, the patient is awake, alert, and oriented x3. The is present. The translato r on the computer was present. I explained to her in regards to the risks and benefits and how the procedure is performed. She understood. I answered all her questions. The risks include possibili ty of bleeding, infection, trauma, , heart attack, possibility of open heart surgery, pericardi al effusion, pneumothorax, hemothorax, or others. MEDICATIONS: The patient's medications, at this point, include hydralazine. The patient also has i nsulin on board along with Lasix. LABORATORY WORK: Has revealed a WBC of 9.1, H and H 9 and 29.4, and platelet counts of 248. Chemis try has revealed a sodium of 138, potassium 4.1, chloride 101, CO2 of 25, glucose is 16, BUN is 29, creatinine 0.75. On 11/26/2016, the patient had negative WBC in the urine, and on 11/25/2016, it was also negative. Electrocardiogram, as I mentioned, today is continuous pacing at 60 beats per minute; however, the p atient does have an underlying 3:1 complete heart block. It is a very high grade block specifically with an underlying junctional escape coming through. IMAGING: Chest x-ray which was performed on 12/03/2016 revealed status post removal of lines, no pn eumothorax, hypoventilation with slight decrease in left basilar atelectasis, probable small left pl eural effusion. Otherwise, no change according to the report from the chest x-ray. VITAL SIGNS: Have been fairly stable between 120 and 145 systolic blood pressure with a heart rate of approximately 70 to 80 beats per minute, ventricular paced rhythm. IMPRESSION: Status post bioprosthetic aortic valve replacement on 11/26/2016. Ever since then, the patient has been dependent on a pacemaker with ventricular paced rhythm. The patient continues to pace. I was contacted by Dr. Alicia to implant a pacemaker. I spoke with Dr. Castle as well. He also ag no for the pacemaker to be implanted today. There has been enough time for the edema to heal from the site of incision as well as procedure. As a result, since the patient has not had return of conduction via the AV node, the patient will requ gorge a permanent pacemaker. I will implant a dual-chamber pacemaker. The patient does have an under lying sinus rhythm with P-waves evident. The risks and benefits, as I mentioned above, have been described to the patient and family via goode slator on the computer, and the patient understands, asked questions, and I answered them all in det ail. I will implant the pacemaker tonight. Dictated By: LAVONNE FRAUSTO MD, LP/JOAQUIM Conf#: [id number] DID#: [id number]
[2016-12-04] MEDS ORDERED: VANCOMYCIN 1.25 GM in SOD CHLORIDE 0.9% 250 ML IVPB ONE (06:00)
[2016-12-04 06:47] LABS: POTASSIUM 4.5 mmol/L (3.5-5.1)
[2016-12-04 06:50] LABS: CREATININE 0.82 mg/dl (0.44-1.00)
[2016-12-04 06:51] LABS: CALCIUM 8.7 mg/dl (8.4-10.2)
[2016-12-04 07:25] LABS: BASOPHILS % 0.1 % (0.0-2.0); EOSINOPHILS # 0.2 10^3/ul (0.0-0.5); EOSINOPHILS % 1.9 % (0.0-7.0); HEMATOCRIT 27.3 % (37.0-47.0); HEMOGLOBIN 9.2 g/dl (12.0-16.0); LYMPHOCYTES # 1.5 10^3/ul (0.8-2.9); LYMPHOCYTES % 16.4 % (15.0-51.0); MEAN CORPUSCULAR HEMOGLOBIN 28.6 pg (29.0-33.0); MEAN CORPUSCULAR HGB CONC 33.5 g/dl (32.0-37.0); MEAN CORPUSCULAR VOLUME 85.1 fl (82.0-101.0); MEAN PLATELET VOLUME 8.6 fl (7.4-10.4); MONOCYTE # 0.8 10^3/ul (0.3-0.9); MONOCYTES % 9.5 % (0.0-11.0); NEUTROPHIL # 6.4 10^3/ul (1.6-7.5); NEUTROPHILS % 72.1 % (39.0-77.0); PLATELET COUNT 249 10^3/UL (140-440); RED BLOOD COUNT 3.21 10^6/ul (4.20-5.40); RED CELL DISTRIBUTION WIDTH 16.5 % (11.5-14.5); UNCORRECTED WBC 8.9 10^3/ul (4.8-10.8); WHITE BLOOD COUNT 8.9 10^3/ul (4.8-10.8)
[2016-12-04] MEDS: INSULIN ASPART [NOVOLOG] 3 ML PEN SC SCH ×5 (07:35→20:35)
[2016-12-04 07:42] LABS: CONDITION 1; LH ANALYZER COMMENTS 1
--- NOTE | 2016-12-04 08:39 | CONS ---
Date/Time of Note Date/Time of Note DATE: 12/04/16 TIME: 08:38 Consult Date/Type/Reason Admit Date/Time Nov 26, 2016 at 10:43 Initial Consult Date 11/27/16 Type of Consultation: card Objective Vital Signs Date Time Temp Pulse Resp B/P Pulse Ox O2 Delivery O2 Flow Rate FiO2 12/04/16 06:00 88 16 124/80 99 Nasal Cannula 12/04/16 04:00 98.1 12/04/16 02:04 3.0 12/03/16 11:53 32 Intake and Output 12/03/16 12/03/16 12/04/16 15:00 23:00 07:00 Intake Total 200 ml 1000 ml 752 ml Output Total 800 ml 30 ml 100 ml Balance -600 ml 970 ml 652 ml Results/Medications Result Diagram: 12/04/16 0523 12/04/16 0523 Results 24 hrs Laboratory Tests Test 12/03/16 14:11 12/03/16 17:21 12/03/16 20:36 12/04/16 05:23 Bedside Glucose 190 200 158 Anion Gap 14 Basophils # 0.0 Basophils % 0.1 Blood Morphology Comment Blood Urea Nitrogen 28 H Calcium Level 8.7 Carbon Dioxide Level 28 Chloride Level 102 Creatinine 0.82 Eosinophils # 0.2 Eosinophils % 1.9 Glucose Level 152 Hematocrit 27.3 L Hemoglobin 9.2 L Lymphocytes # 1.5 Lymphocytes % 16.4 Mean Corpuscular Hemoglobin 28.6 L Mean Corpuscular Hemoglobin Concent 33.5 Mean Corpuscular Volume 85.1 Mean Platelet Volume 8.6 Monocytes # 0.8 Monocytes % 9.5 Neutrophils # 6.4 Neutrophils % 72.1 Nucleated Red Blood Cells # 0.0 Nucleated Red Blood Cells % 0.0 Platelet Count 249 Potassium Level 4.5 Red Blood Count 3.21 L Red Cell Distribution Width 16.5 H Sodium Level 139 White Blood Count 8.9 Test 12/04/16 08:21 Bedside Glucose 124 Medications Current Medications Dopamine HCl/ Dextrose 250 ml @ 5.138 mls/ hr TITRATE IV ; Start 11/26/16 at 21: 30 Hydromorphone HCl (Dilaudid) 0.2 mg Q1H PRN IV PAIN LEVEL 1-5 Last administered on 11/29/16t 02:07; Admin Dose 0.2 MG; Start 11/26/16 at 21:30 Hydromorphone HCl (Dilaudid) 0.4 mg Q1H PRN IV PAIN LEVEL 6-10 Last administered on 12/04/16 05:01; Admin Dose 0.4 MG; Start 11/26/16 at 21:30 Ondansetron HCl (Zofran Inj) 2 mg ONCE PRN IV Nausea; Start 11/26/16 at 21:30 Hydromorphone HCl (Dilaudid) 0.2 mg Q15M PRN IV PAIN LEVEL 1-5; Start 11/26/16 at 22:00 Hydromorphone HCl 0.4 mg 0.4 mg Q15M PRN IV PAIN LEVEL 6-10 Last administered on 11/27/16 00:07; Admin Dose 0.4 MG; Start 11/26/16 at 22:00 Magnesium Sulfate/ Dextrose (Magnesium Sulfate 1 Gm/D5W) 100 ml @ 100 mls/hr PRN PRN IVPB Mag < 2; Start 11/27/16 at 04:30 Pantoprazole 40 mg 40 mg DAILY@06 IV Last administered on 12/04/16 04:58; Admin Dose 40 MG; Start 11/27/16 at 06:00 Nitroglycerin/ Dextrose (Nitroglycerin 50 Mg/D5W (Pmx)) 250 ml @ 1.5 mls/hr TITRATE IV Last administered on 12/03/16 02:17; Admin Dose 3 MLS/HR; Start 09/03 at 19:00 Acetaminophen/ Hydrocodone Bitart (Ferron (5/325)) 1 tab Q4H PRN PO PAIN LEVEL 1 -5 Last administered on 12/04/16 03:31; Admin Dose 1 TAB; Start 11/27/16 at 20: 00 Acetaminophen/ Hydrocodone Bitart (Ferron (5/325)) 2 tab Q4H PRN PO PAIN LEVEL 6 -10 Last administered on 12/01/16 09:05; Admin Dose 2 TAB; Start 11/27/16 at 20 :00 Miscellaneous Information 1 ea NOTE XX ; Start 11/28/16 at 02:45 Glucose (Glutose) 15 gm Q15M PRN PO DECREASED GLUCOSE; Start 11/28/16 at 02:45 Glucose (Glutose) 22.5 gm Q15M PRN PO DECREASED GLUCOSE; Start 11/28/16 at 02: 45 Glucagon (Glucagen) 1 mg Q15M PRN IM DECREASED GLUCOSE; Start 11/28/16 at 02:45 Glucose (Glutose) 15 gm Q15M PRN BUCCAL DECREASED GLUCOSE; Start 11/28/16 at 02 :45 Insulin Glargine (Lantus) 15 unit QAM SC Last administered on 12/03/16 08:54; Admin Dose 15 UNIT; Start 11/28/16 at 14:30 Furosemide 40 mg 40 mg DAILY IV Last administered on 12/03/16 08:49; Admin Dose 40 MG; Start 11/30/16 at 09:00 Ceftriaxone Sodium (Rocephin) 50 ml @ 100 mls/hr Q24H IVPB Last administered on 12/03/16 14:20; Admin Dose 100 MLS/HR; Start 11/29/16 at 15:30; Stop at 15:29 Diagnostic Test (Pha) (Accucheck) 1 ea 02 XX Last administered on 12/01/16 02: 25; Admin Dose 1 EA; Start 12/01/16 at 02:00 Enoxaparin Sodium (Lovenox) 40 mg DAILY SC Last administered on 12/03/16 08:51 ; Admin Dose 40 MG; Start 12/02/16 at 09:00 Hydralazine HCl 50 mg 50 mg TID PO Last administered on 12/03/16 14:20; Admin Dose 50 MG; Start 12/03/16 at 03:00 Vancomycin HCl/ Sodium Chloride (Vancocin/NS) 250 ml @ 83.333 mls/ hr ONCE ONCE IVPB Last administered on 12/04/16 04:58; Admin Dose 83.333 MLS/HR; Start 12/04/16 at 06:00; Stop 12/04/16 at 08:59 Metoprolol Tartrate (Lopressor) 25 mg BID GTB Last administered on 12/03/16 23 :02; Admin Dose 25 MG; Start 12/03/16 at 23:00 Metoprolol Tartrate (Lopressor) 5 mg Q4 PRN IV HR> 100; Start 12/03/16 at 23:00 Assessment/Plan Chief Complaint/Hosp Course Patient is very well-known to me from outpatient, She asked for me to see her in the hospital. she came to me as second opinion after C had coronary angiography at [facility] with echo yet that showed known ischemic cardiomyopathy with LV ejection fraction of 30% severe critical aortic stenosis. I had a JLUIS done at my old office and showed severe aortic stenosis confirmed I had a discussion with the patient that C will require surgery finally she underwent bioprosthetic aortic wall replacement by Dr. Mcnamara last night it 23 mm porcine wire was placed in our position. Patient is in ICU extubated alert and awake being paced at 80 bpm 100% underlying rhythm is junctional escape with complete heart block most likely secondary to post aVR edema around the area. Problems: Additional Assessment/Plan s/p PPM doing fine can be tx to tele. stable MANUEL HOOVER MD Dec 04, 2016 08:39
[2016-12-04] MEDS: FUROSEMIDE 40 MG INJ IV SCH (09:00)
[2016-12-04] MEDS: METOPROLOL 25 MG TAB GTB SCH ×2 (09:00→20:26)
[2016-12-04] MEDS: INSULIN GLARGINE [LANtus] 3 ML PEN SC SCH (09:01)
[2016-12-04] MEDS: ENOXAPARIN 40 MG/0.4 ML SYG SC SCH (09:02)
--- NOTE | 2016-12-04 09:04 | RADRPT ---
PROCEDURE: X-ray fluoroscopy guidance CLINICAL INDICATION: Pain TECHNIQUE: Fluoroscopic guidance was utilized for pacemaker placement. COMPARISON: None available FINDINGS: Fluoroscopic guidance was provided. 224.4 seconds of fluoroscopy time was utilized for the procedur e. 70 images were obtained during the procedure in progress. IMPRESSION: 1. X-ray fluoroscopic guidance, as above. RPTAT: EE .Shaun Ewing MD, MD Date Time Electronically viewed and signed by .Shaun Ewing MD, MD on 12/04/2016 09:03 .R/
--- NOTE | 2016-12-04 09:56 | OPR ---
DATE OF OPERATION: 12/04/2016 INDICATION FOR THE PROCEDURE: Complete heart block. The patient has been post-AVR surgery approximately 7-1/2 to 8 days ago. The procedure took place i n the morning of 11/26/2016 and ever ever since then, the patient has been pacemaker dependent and h as been pacing from the epicardial pacemaker leads. The patient will require dual chamber permanent pacemaker implant in order to be able to be discharg ed home and to have full recovery. REFERRING PHYSICIAN: Dr. Alicia and Dr. Castle. PROCEDURE: 1. Implantation of a chamber pacemaker. 2. Implantation of right atrial lead. 3. Implantation of right ventricular lead. 4. Pacing and recording of the right atrial and right ventricular lead. 5. Defibrillator pad placements anteriorly and posteriorly in the event that the patient required e xternal pacing. 6. O2 sat monitoring, blood pressure monitoring. 7. Contrast sonography of the left subclavian vessel. 8. Temporary pacing and recording from the epicardial leads to assure that there is capture as well . 9. Catheter placement into the left subclavian vessel and into the superior vena cava and a central line placement and removal. DESCRIPTION OF PROCEDURE: After informed consent was obtained by the patient, the patient was broug ht into the cardiac operating room where the patient's left chest and neck region was prepped and dr aped in usual sterile fashion. Following this, 1% lidocaine was used in order to infiltrate the lef t deltopectoral groove. Following this, 3/4-inch was made in order to bluntly dissect as well as to dissect with a cautery. Following this, the patient had 10 mL of contrast injection into the left subclavian vessel via the left brachial Hep-Lock. Following this, the patient had placement of a mi cropuncture needle into the left subclavian vessel followed by introducer sheaths and leads into the right atrium and right ventricle with no complications. Following this, the patient then had pacin g and recording performed to assure capture thresholds as well as impedance as well as sensing where appropriate. No complications occurred. The patient then had the device brought to the field. Device and leads were connected to each other and placed into the pocket. Pocket was sutured using 2-0 Vicryl, 4-0 Vicryl after it was copiously irrigated with antibiotic solution. The patient left the cardiac operating room in stable condition after the dressing was applied over the skin. IMPLANTED MATERIAL: A [employer] dual chamber pacemaker model number is 2240, serial #[id number] . The right atrial lead is [employer] Tendril SDX 1688tc-52 cm, serial number [id number]. The right ventricular lead is a [employer] Tendril STS 2088tc-58 cm, serial number [id number]. Right atrial P waves were measured at 1.9 millivolts, impedance of 460 ohms, threshold of 1 volt at 0.4 msec. Right ventricular R waves were not measurable because of the fact that the patient was continuously pacing from the external pacer. Impedance was 590 ohms, threshold of 0.75 volts at 0.4 msec. IMPRESSION: Successful implantation of a dual chamber pacemaker for the purposes of complete heart block. The patient will be sent to the intensive care unit for recovery. He will be followed up by Dr. Carl clemens and Dr. Castle. Dictated By: LAVONNE FRAUSTO MD, LP/JOAQUIM Conf#: [id number] DID#: [id number]
--- NOTE | 2016-12-04 11:42 | CONS ---
Date/Time of Note Date/Time of Note DATE: 12/04/16 TIME: 11:41 Consult Date/Type/Reason Admit Date/Time Nov 26, 2016 at 10:43 Initial Consult Date 11/27/16 Type of Consultation: pulmonary Subjective Patient stable Status post pacemaker placement yesterday and interrogation this morning Objective Vital Signs Date Time Temp Pulse Resp B/P Pulse Ox O2 Delivery O2 Flow Rate FiO2 12/04/16 11:00 82 15 119/63 100 Nasal Cannula 12/04/16 08:00 98.2 12/04/16 08:00 2.0 12/03/16 11:53 32 Intake and Output 12/03/16 12/03/16 12/04/16 15:00 23:00 07:00 Intake Total 200 ml 1000 ml 752 ml Output Total 800 ml 30 ml 100 ml Balance -600 ml 970 ml 652 ml PHYSICAL EXAMINATION: GENERAL: Moderately obese lady, awake, alert, oriented, comfortable at rest, no acute distress. VITAL SIGNS: NECK: Supple. No JVD or lymphadenopathy. CARDIAC: S1, S2. Systolic ejection murmur CHEST: Diminished air entry bilaterally. ABDOMEN: Soft, nontender. No guarding or rebound. EXTREMITIES: No cyanosis, clubbing, 1+ edema. NEUROLOGIC: Generalized weakness, but no focal deficits. Results/Medications Result Diagram: 12/04/16 0523 12/04/16 0523 Results 24 hrs Laboratory Tests Test 12/03/16 14:11 12/03/16 17:21 12/03/16 20:36 12/04/16 05:23 Bedside Glucose 190 200 158 Anion Gap 14 Basophils # 0.0 Basophils % 0.1 Blood Morphology Comment Blood Urea Nitrogen 28 H Calcium Level 8.7 Carbon Dioxide Level 28 Chloride Level 102 Creatinine 0.82 Eosinophils # 0.2 Eosinophils % 1.9 Glucose Level 152 Hematocrit 27.3 L Hemoglobin 9.2 L Lymphocytes # 1.5 Lymphocytes % 16.4 Mean Corpuscular Hemoglobin 28.6 L Mean Corpuscular Hemoglobin Concent 33.5 Mean Corpuscular Volume 85.1 Mean Platelet Volume 8.6 Monocytes # 0.8 Monocytes % 9.5 Neutrophils # 6.4 Neutrophils % 72.1 Nucleated Red Blood Cells # 0.0 Nucleated Red Blood Cells % 0.0 Platelet Count 249 Potassium Level 4.5 Red Blood Count 3.21 L Red Cell Distribution Width 16.5 H Sodium Level 139 White Blood Count 8.9 Test 12/04/16 08:21 Bedside Glucose 124 Medications Current Medications Dopamine HCl/ Dextrose 250 ml @ 5.138 mls/ hr TITRATE IV ; Start 11/26/16 at 21: 30 Hydromorphone HCl (Dilaudid) 0.2 mg Q1H PRN IV PAIN LEVEL 1-5 Last administered on 11/29/16 02:07; Admin Dose 0.2 MG; Start 11/26/16 at 21:30 Hydromorphone HCl (Dilaudid) 0.4 mg Q1H PRN IV PAIN LEVEL 6-10 Last administered on 12/04/16 05:01; Admin Dose 0.4 MG; Start 11/26/16 at 21:30 Ondansetron HCl (Zofran Inj) 2 mg ONCE PRN IV Nausea; Start 11/26/16 at 21:30 Hydromorphone HCl (Dilaudid) 0.2 mg Q15M PRN IV PAIN LEVEL 1-5; Start 11/26/16 at 22:00 Hydromorphone HCl 0.4 mg 0.4 mg Q15M PRN IV PAIN LEVEL 6-10 Last administered on 11/27/16 00:07; Admin Dose 0.4 MG; Start 11/26/16 at 22:00 Magnesium Sulfate/ Dextrose (Magnesium Sulfate 1 Gm/D5W) 100 ml @ 100 mls/hr PRN PRN IVPB Mag < 2; Start 11/27/16 at 04:30 Pantoprazole 40 mg 40 mg DAILY@06 IV Last administered on 12/04/16 04:58; Admin Dose 40 MG; Start 11/27/16 at 06:00 Nitroglycerin/ Dextrose (Nitroglycerin 50 Mg/D5W (Pmx)) 250 ml @ 1.5 mls/hr TITRATE IV Last administered on 12/03/16 02:17; Admin Dose 3 MLS/HR; Start 09/03 at 19:00 Acetaminophen/ Hydrocodone Bitart ([place] (5/325)) 1 tab Q4H PRN PO PAIN LEVEL 1 -5 Last administered on 12/04/16 10:27; Admin Dose 1 TAB; Start 11/27/16 at 20: 00 Acetaminophen/ Hydrocodone Bitart ([place] (5/325)) 2 tab Q4H PRN PO PAIN LEVEL 6 -10 Last administered on 12/01/16 09:05; Admin Dose 2 TAB; Start 11/27/16 at 20 :00 Miscellaneous Information 1 ea NOTE XX ; Start 11/28/16 at 02:45 Glucose (Glutose) 15 gm Q15M PRN PO DECREASED GLUCOSE; Start 11/28/16 at 02:45 Glucose (Glutose) 22.5 gm Q15M PRN PO DECREASED GLUCOSE; Start 11/28/16 at 02: 45 Glucagon (Glucagen) 1 mg Q15M PRN IM DECREASED GLUCOSE; Start 11/28/16 at 02:45 Glucose (Glutose) 15 gm Q15M PRN BUCCAL DECREASED GLUCOSE; Start 11/28/16 at 02 :45 Insulin Glargine (Lantus) 15 unit QAM SC Last administered on 12/04/16 09:01; Admin Dose 15 UNIT; Start 11/28/16 at 14:30 Furosemide 40 mg 40 mg DAILY IV Last administered on 12/04/16 09:00; Admin Dose 40 MG; Start 11/30/16 at 09:00 Ceftriaxone Sodium (Rocephin) 50 ml @ 100 mls/hr Q24H IVPB Last administered on 12/03/16 14:20; Admin Dose 100 MLS/HR; Start 11/29/16 at 15:30; Stop at 15:29 Diagnostic Test (Pha) (Accucheck) 1 ea 02 XX Last administered on 12/01/16 02: 25; Admin Dose 1 EA; Start 12/01/16 at 02:00 Enoxaparin Sodium (Lovenox) 40 mg DAILY SC Last administered on 12/04/16 09:02 ; Admin Dose 40 MG; Start 12/02/16 at 09:00 Hydralazine HCl (Apresoline) 50 mg TID PO Last administered on 12/04/16 09:00 ; Admin Dose 50 MG; Start 12/03/16 at 03:00 Metoprolol Tartrate (Lopressor) 25 mg BID GTB Last administered on 12/04/16 09 :00; Admin Dose 25 MG; Start 12/03/16 at 23:00 Metoprolol Tartrate (Lopressor) 5 mg Q4 PRN IV HR> 100; Start 12/03/16 at 23:00 Assessment/Plan Chief Complaint/Hosp Course IMPRESSION AND PLAN: 1. Status post Post-aortic valve replacement. 2. History of critical aortic sclerosis. 3. Postop hypoxemia secondary to alveolar hypoventilation and mild pulmonary edema. 4. Evidence of mild pulmonary edema. 5. Complete heart block requiring status post pacemaker placement The patient will require: 1. Continued incentive spirometry. 2. Encourage out of bed. 3. Glycemic management. 4. DVT and GI prophylaxis. 5. Continue diuresis if tolerated. 6. Continue cardiology recommendations Transfer to telemetry okay from pulmonary standpoint Encourage ambulation Problems: GRUPO SÁNCHEZ MD, [facility] Dec 04, 2016 11:42
--- NOTE | 2016-12-04 11:50 | PN ---
Date/Time of Note Date/Time of Note DATE: 12/04/16 TIME: 11:49 Assessment/Plan Lines/Catheters IV Catheter Type (from Nrsg): Saline Lock Nelson in Place (from Nrsg): No Assessment/Plan Chief Complaint/Hosp Course SP AVR CT [address] ambulate still pacer dependent continue pacing monitor Rhythm SP pacemaker DC pacing wires pulm toilet Problems: Subjective 24 Hr Interval Summary Constitutional: improved Pain Control: mild Exam/Review of Systems Vital Signs Vitals Vital Signs Date Time Temp Pulse Resp B/P Pulse Ox O2 Delivery O2 Flow Rate FiO2 12/04/16 11:00 82 15 119/63 100 Nasal Cannula 12/04/16 08:00 98.2 12/04/16 08:00 2.0 12/03/16 11:53 32 Intake and Output 12/03/16 12/03/16 12/04/16 15:00 23:00 07:00 Intake Total 200 ml 1000 ml 752 ml Output Total 800 ml 30 ml 100 ml Balance -600 ml 970 ml 652 ml Exam ENMT: mucosa pink and moist, nl external ears & nose, nl lips & teeth, nl nasal mucosa & septum Neck: non-tender, supple Respiratory: clear to auscultation, normal air movement Cardiovascular: nl pulses, regular rate and rhythm Results Result Diagram: 12/04/16 0523 12/04/16 0523 JOSELINE NICOLE MD Dec 04, 2016 11:50
--- NOTE | 2016-12-04 14:27 | RADRPT ---
Vent Rate: 79 bpm RR Interval: 0 msec [place] Interval: 176 msec QRS Duration: 162 msec QT Interval: 446 msec QTC Interval: 511 msec P-R-T [place]: 35 - -57 - 96 degrees paced rhythm Left axis deviation Nonspecific intraventricular block Lateral infarct , age undetermined Inferior infarct , age undetermined Abnormal ECG Electronically Signed By: Wilfredo Quiñones [id number]
--- NOTE | 2016-12-04 15:14 | CONS ---
Date/Time of Note Date/Time of Note DATE: 12/04/16 TIME: 15:12 Assessment/Plan Assessment/Plan Chief Complaint/Hosp Course S/P AVR CAD LOW EF ARRTHYTHMIA RENAL INSUFFICIENCY better lung infilterate better s/p pacemaker plan ck labs ss insulin antibioic per cardio tele PACEMAKER per cardio Problems: Consultation Date/Type/Reason Admit Date/Time Nov 26, 2016 at 10:43 Initial Consult Date 11/27/16 Type of Consultation: renal 24 HR Interval Summary Constitutional: improved, No chills Exam/Review of Systems Vital Signs Vitals Vital Signs Date Time Temp Pulse Resp B/P Pulse Ox O2 Delivery O2 Flow Rate FiO2 12/04/16 14:00 91 20 125/72 99 Nasal Cannula 12/04/16 12:00 98.0 12/04/16 08:00 2.0 12/03/16 11:53 32 Intake and Output 12/03/16 12/03/16 12/04/16 15:00 23:00 07:00 Intake Total 200 ml 1000 ml 752 ml Output Total 800 ml 30 ml 100 ml Balance -600 ml 970 ml 652 ml Exam Respiratory: clear to auscultation Cardiovascular: other (pacemaker+), regular rate and rhythm Gastrointestinal: soft Musculoskeletal: nl extremities to inspection Extremities: normal pulses Neurological: [employer] II-XII intact Results Result Diagram: 12/04/16 0523 12/04/16 0523 Results 24 hrs Laboratory Tests Test 12/03/16 17:21 12/03/16 20:36 12/04/16 05:23 12/04/16 08:21 Bedside Glucose 200 158 124 Anion Gap 14 Basophils # 0.0 Basophils % 0.1 Blood Morphology Comment Blood Urea Nitrogen 28 H Calcium Level 8.7 Carbon Dioxide Level 28 Chloride Level 102 Creatinine 0.82 Eosinophils # 0.2 Eosinophils % 1.9 Glucose Level 152 Hematocrit 27.3 L Hemoglobin 9.2 L Lymphocytes # 1.5 Lymphocytes % 16.4 Mean Corpuscular Hemoglobin 28.6 L Mean Corpuscular Hemoglobin Concent 33.5 Mean Corpuscular Volume 85.1 Mean Platelet Volume 8.6 Monocytes # 0.8 Monocytes % 9.5 Neutrophils # 6.4 Neutrophils % 72.1 Nucleated Red Blood Cells # 0.0 Nucleated Red Blood Cells % 0.0 Platelet Count 249 Potassium Level 4.5 Red Blood Count 3.21 L Red Cell Distribution Width 16.5 H Sodium Level 139 White Blood Count 8.9 Test 12/04/16 12:23 Bedside Glucose 193 Medications Medications Current Medications Hydromorphone HCl (Dilaudid) 0.2 mg Q1H PRN IV PAIN LEVEL 1-5 Last administered on 11/29/16 02:07; Admin Dose 0.2 MG; Start 11/26/16 at 21:30 Hydromorphone HCl (Dilaudid) 0.4 mg Q1H PRN IV PAIN LEVEL 6-10 Last administered on 12/04/16 12:20; Admin Dose 0.4 MG; Start 11/26/16 at 21:30 Ondansetron HCl 2 mg 2 mg ONCE PRN IV Nausea; Start 11/26/16 at 21:30 Magnesium Sulfate/ Dextrose (Magnesium Sulfate 1 Gm/D5W) 100 ml @ 100 mls/hr PRN PRN IVPB Mag < 2; Start 11/27/16 at 04:30 Pantoprazole (Protonix Iv) 40 mg DAILY@06 IV Last administered on 12/04/16 04: 58; Admin Dose 40 MG; Start 11/27/16 at 06:00 Acetaminophen/ Hydrocodone Bitart ([place] (5/325)) 1 tab Q4H PRN PO PAIN LEVEL 1 -5 Last administered on 12/04/16 10:27; Admin Dose 1 TAB; Start 11/27/16 at 20: 00 Acetaminophen/ Hydrocodone Bitart ([place] (5/325)) 2 tab Q4H PRN PO PAIN LEVEL 6 -10 Last administered on 12/01/16 09:05; Admin Dose 2 TAB; Start 11/27/16 at 20 :00 Miscellaneous Information 1 ea NOTE XX ; Start 11/28/16 at 02:45 Glucose (Glutose) 15 gm Q15M PRN PO DECREASED GLUCOSE; Start 11/28/16 at 02:45 Glucose (Glutose) 22.5 gm Q15M PRN PO DECREASED GLUCOSE; Start 11/28/16 at 02: 45 Glucagon (Glucagen) 1 mg Q15M PRN IM DECREASED GLUCOSE; Start 11/28/16 at 02:45 Glucose (Glutose) 15 gm Q15M PRN BUCCAL DECREASED GLUCOSE; Start 11/28/16 at 02 :45 Insulin Glargine (Lantus) 15 unit QAM SC Last administered on 12/04/16 09:01; Admin Dose 15 UNIT; Start 11/28/16 at 14:30 Furosemide 40 mg 40 mg DAILY IV Last administered on 12/04/16 09:00; Admin Dose 40 MG; Start 11/30/16 at 09:00 Ceftriaxone Sodium (Rocephin) 50 ml @ 100 mls/hr Q24H IVPB Last administered on 12/03/16 14:20; Admin Dose 100 MLS/HR; Start 11/29/16 at 15:30; Stop at 15:29 Diagnostic Test (Pha) (Accucheck) 1 ea 02 XX Last administered on 12/01/16 02: 25; Admin Dose 1 EA; Start 12/01/16 at 02:00 Enoxaparin Sodium (Lovenox) 40 mg DAILY SC Last administered on 12/04/16 09:02 ; Admin Dose 40 MG; Start 12/02/16 at 09:00 Hydralazine HCl (Apresoline) 50 mg TID PO Last administered on 12/04/16 12:25 ; Admin Dose 50 MG; Start 12/03/16 at 03:00 Metoprolol Tartrate (Lopressor) 25 mg BID GTB Last administered on 12/04/16 09 :00; Admin Dose 25 MG; Start 12/03/16 at 23:00 Metoprolol Tartrate (Lopressor) 5 mg Q4 PRN IV HR> 100; Start 12/03/16 at 23:00 KILLIAN FLORES MD Dec 04, 2016 15:14
[2016-12-04] MEDS: CEFTRIAXONE 1 GM/50 ML (PMX) 50 ML IVPB SCH (15:42)
[2016-12-05] VITALS (12 sets, daily range): BP systolic 114–157; BP diastolic 63–78; PULSE 82–90; RESP 16–21
[2016-12-05] MEDS: ACCUCHECK XX SCH (02:00)
[2016-12-05] MEDS: HYDROCODONE/APAP (5/325) TAB PO PRN ×2 (04:30→23:21)
[2016-12-05] MEDS: PANTOPRAZOLE 40 MG INJ IV SCH (06:30)
[2016-12-05] MEDS: INSULIN ASPART [NOVOLOG] 3 ML PEN SC SCH ×7 (07:55→21:02)
[2016-12-05] MEDS: FUROSEMIDE 40 MG INJ IV SCH (08:59)
[2016-12-05] MEDS: METOPROLOL 25 MG TAB GTB SCH ×2 (08:59→20:57)
[2016-12-05] MEDS: ENOXAPARIN 40 MG/0.4 ML SYG SC SCH (09:13)
[2016-12-05] MEDS: INSULIN GLARGINE [LANtus] 3 ML PEN SC SCH (09:14)
--- NOTE | 2016-12-05 14:11 | CONS ---
Date/Time of Note Date/Time of Note DATE: 12/05/16 TIME: 14:10 Consult Date/Type/Reason Admit Date/Time Nov 26, 2016 at 10:43 Initial Consult Date 11/27/16 Type of Consultation: pulmonary Subjective Patient remained stable no new events Continues nasal cannula oxygen as needed Denies shortness of breath Objective Vital Signs Date Time Temp Pulse Resp B/P Pulse Ox O2 Delivery O2 Flow Rate FiO2 12/05/16 12:25 83 12/05/16 07:47 Nasal Cannula 2.0 12/05/16 07:45 98.2 18 144/77 98 12/03/16 11:53 32 Intake and Output 12/04/16 12/04/16 12/05/16 15:00 23:00 07:00 Intake Total 1110 ml 390 ml 100 ml Output Total 1 ml Balance 1110 ml 389 ml 100 ml PHYSICAL EXAMINATION: GENERAL: Moderately obese lady, awake, alert, oriented, comfortable at rest, no acute distress. VITAL SIGNS: NECK: Supple. No JVD or lymphadenopathy. CARDIAC: S1, S2. Systolic ejection murmur CHEST: Diminished air entry bilaterally. ABDOMEN: Soft, nontender. No guarding or rebound. EXTREMITIES: No cyanosis, clubbing, 1+ edema. NEUROLOGIC: Generalized weakness, but no focal deficits. Results/Medications Result Diagram: 12/04/16 0523 12/04/16 0523 Results 24 hrs Laboratory Tests Test 12/04/16 17:57 12/04/16 20:28 12/05/16 03:02 12/05/16 08:47 Bedside Glucose 136 209 137 126 Test 12/05/16 11:51 Bedside Glucose 213 Medications Current Medications Hydromorphone HCl (Dilaudid) 0.2 mg Q1H PRN IV PAIN LEVEL 1-5 Last administered on 11/29/16 02:07; Admin Dose 0.2 MG; Start 11/26/16 at 21:30 Hydromorphone HCl (Dilaudid) 0.4 mg Q1H PRN IV PAIN LEVEL 6-10 Last administered on 12/04/16 19:21; Admin Dose 0.4 MG; Start 11/26/16 at 21:30 Ondansetron HCl 2 mg 2 mg ONCE PRN IV Nausea; Start 11/26/16 at 21:30 Magnesium Sulfate/ Dextrose (Magnesium Sulfate 1 Gm/D5W) 100 ml @ 100 mls/hr PRN PRN IVPB Mag < 2; Start 11/27/16 at 04:30 Pantoprazole (Protonix Iv) 40 mg DAILY@06 IV Last administered on 12/05/16 06: 30; Admin Dose 40 MG; Start 11/27/16 at 06:00 Acetaminophen/ Hydrocodone Bitart ([place] (5/325)) 1 tab Q4H PRN PO PAIN LEVEL 1 -5 Last administered on 12/04/16 15:44; Admin Dose 1 TAB; Start 11/27/16 at 20: 00 Acetaminophen/ Hydrocodone Bitart ([place] (5/325)) 2 tab Q4H PRN PO PAIN LEVEL 6 -10 Last administered on 12/05/16 04:30; Admin Dose 2 TAB; Start 11/27/16 at 20 :00 Miscellaneous Information 1 ea NOTE XX ; Start 11/28/16 at 02:45 Glucose (Glutose) 15 gm Q15M PRN PO DECREASED GLUCOSE; Start 11/28/16 at 02:45 Glucose (Glutose) 22.5 gm Q15M PRN PO DECREASED GLUCOSE; Start 11/28/16 at 02: 45 Glucagon (Glucagen) 1 mg Q15M PRN IM DECREASED GLUCOSE; Start 11/28/16 at 02:45 Glucose (Glutose) 15 gm Q15M PRN BUCCAL DECREASED GLUCOSE; Start 11/28/16 at 02 :45 Insulin Glargine (Lantus) 15 unit QAM SC Last administered on 12/05/16 09:14; Admin Dose 15 UNIT; Start 11/28/16 at 14:30 Furosemide 40 mg 40 mg DAILY IV Last administered on 12/05/16 08:59; Admin Dose 40 MG; Start 11/30/16 at 09:00 Ceftriaxone Sodium (Rocephin) 50 ml @ 100 mls/hr Q24H IVPB Last administered on 12/04/16 15:42; Admin Dose 100 MLS/HR; Start 11/29/16 at 15:30; Stop at 15:29 Diagnostic Test (Pha) (Accucheck) 1 ea 02 XX Last administered on 12/05/16 02: 00; Admin Dose 1 EA; Start 12/01/16 at 02:00 Enoxaparin Sodium (Lovenox) 40 mg DAILY SC Last administered on 12/05/16 09:13 ; Admin Dose 40 MG; Start 12/02/16 at 09:00 Hydralazine HCl (Apresoline) 50 mg TID PO Last administered on 12/05/16 12:25 ; Admin Dose 50 MG; Start 12/03/16 at 03:00 Metoprolol Tartrate (Lopressor) 25 mg BID GTB Last administered on 12/05/16 08 :59; Admin Dose 25 MG; Start 12/03/16 at 23:00 Metoprolol Tartrate (Lopressor) 5 mg Q4 PRN IV HR> 100; Start 12/03/16 at 23:00 Assessment/Plan Chief Complaint/Hosp Course IMPRESSION AND PLAN: 1. Status post Post-aortic valve replacement. 2. History of critical aortic sclerosis. 3. Postop hypoxemia secondary to alveolar hypoventilation and mild pulmonary edema. 4. Evidence of mild pulmonary edema. 5. Complete heart block requiring status post pacemaker placement The patient will require: 1. Continued incentive spirometry. 2. Encourage out of bed. 3. Glycemic management. 4. DVT and GI prophylaxis. 5. Continue diuresis if tolerated. 6. Continue cardiology recommendations DC planning okay from pulmonary standpoint Problems: GRUPO S[facility]NCHEZ MD, [facility] Dec 05, 2016 14:11
--- NOTE | 2016-12-05 17:49 | PN ---
Date/Time of Note Date/Time of Note DATE: 12/05/16 TIME: 17:49 Assessment/Plan Lines/Catheters IV Catheter Type (from Nrsg): Saline Lock Nelson in Place (from Nrsg): No Assessment/Plan Chief Complaint/Hosp Course SP AVR CT [address] ambulate still pacer dependent continue pacing monitor Rhythm SP pacemaker pulm toilet Problems: Subjective 24 Hr Interval Summary Constitutional: improved Pain Control: mild Exam/Review of Systems Vital Signs Vitals Vital Signs Date Time Temp Pulse Resp B/P Pulse Ox O2 Delivery O2 Flow Rate FiO2 12/05/16 16:36 3.0 32 12/05/16 16:17 90 12/05/16 15:58 97.5 18 131/64 98 12/05/16 07:47 Nasal Cannula Intake and Output 12/04/16 12/04/16 12/05/16 15:00 23:00 07:00 Intake Total 1110 ml 390 ml 100 ml Output Total 1 ml Balance 1110 ml 389 ml 100 ml Exam Neck: non-tender, supple Respiratory: clear to auscultation, normal air movement Cardiovascular: nl pulses, regular rate and rhythm Gastrointestinal: nl liver, spleen, non-tender, soft Results Result Diagram: 12/04/16 0523 12/04/16 0523 JOSELINE NICOLE MD Dec 05, 2016 17:49
--- NOTE | 2016-12-05 20:03 | CONS ---
Date/Time of Note Date/Time of Note DATE: 12/05/16 TIME: 20:02 Assessment/Plan Assessment/Plan Chief Complaint/Hosp Course S/P AVR CAD LOW EF ARRTHYTHMIA RENAL INSUFFICIENCY better lung infilterate better s/p pacemaker plan ck labs ss insulin antibioic per cardio pt/ot Problems: Consultation Date/Type/Reason Admit Date/Time Nov 26, 2016 at 10:43 Initial Consult Date 11/27/16 Type of Consultation: renal 24 HR Interval Summary Constitutional: no complaints Exam/Review of Systems Vital Signs Vitals Vital Signs Date Time Temp Pulse Resp B/P Pulse Ox O2 Delivery O2 Flow Rate FiO2 12/05/16 16:36 3.0 32 12/05/16 16:17 90 12/05/16 15:58 97.5 18 131/64 98 12/05/16 07:47 Nasal Cannula Intake and Output 12/04/16 12/04/16 12/05/16 15:00 23:00 07:00 Intake Total 1110 ml 390 ml 100 ml Output Total 1 ml Balance 1110 ml 389 ml 100 ml Exam Neck: supple Respiratory: clear to auscultation Cardiovascular: regular rate and rhythm Gastrointestinal: soft Musculoskeletal: nl extremities to inspection Extremities: normal pulses Results Result Diagram: 12/04/16 0523 12/04/16 0523 Results 24 hrs Laboratory Tests Test 12/04/16 20:28 12/05/16 03:02 12/05/16 08:47 12/05/16 11:51 Bedside Glucose 209 137 126 213 Test 12/05/16 18:02 Bedside Glucose 132 Medications Medications Current Medications Hydromorphone HCl (Dilaudid) 0.2 mg Q1H PRN IV PAIN LEVEL 1-5 Last administered on 11/29/16 02:07; Admin Dose 0.2 MG; Start 11/26/16 at 21:30 Hydromorphone HCl (Dilaudid) 0.4 mg Q1H PRN IV PAIN LEVEL 6-10 Last administered on 12/04/16 19:21; Admin Dose 0.4 MG; Start 11/26/16 at 21:30 Ondansetron HCl 2 mg 2 mg ONCE PRN IV Nausea; Start 11/26/16 at 21:30 Magnesium Sulfate/ Dextrose (Magnesium Sulfate 1 Gm/D5W) 100 ml @ 100 mls/hr PRN PRN IVPB Mag < 2; Start 11/27/16 at 04:30 Acetaminophen/ Hydrocodone Bitart ([place] (5/325)) 1 tab Q4H PRN PO PAIN LEVEL 1 -5 Last administered on 12/04/16 15:44; Admin Dose 1 TAB; Start 11/27/16 at 20: 00 Acetaminophen/ Hydrocodone Bitart ([place] (5/325)) 2 tab Q4H PRN PO PAIN LEVEL 6 -10 Last administered on 12/05/16 04:30; Admin Dose 2 TAB; Start 11/27/16 at 20 :00 Miscellaneous Information 1 ea NOTE XX ; Start 11/28/16 at 02:45 Glucose (Glutose) 15 gm Q15M PRN PO DECREASED GLUCOSE; Start 11/28/16 at 02:45 Glucose (Glutose) 22.5 gm Q15M PRN PO DECREASED GLUCOSE; Start 11/28/16 at 02: 45 Glucagon (Glucagen) 1 mg Q15M PRN IM DECREASED GLUCOSE; Start 11/28/16 at 02:45 Glucose (Glutose) 15 gm Q15M PRN BUCCAL DECREASED GLUCOSE; Start 11/28/16 at 02 :45 Insulin Glargine (Lantus) 15 unit QAM SC Last administered on 12/05/16 09:14; Admin Dose 15 UNIT; Start 11/28/16 at 14:30 Furosemide (Lasix) 40 mg DAILY IV Last administered on 12/05/16 08:59; Admin Dose 40 MG; Start 11/30/16 at 09:00 Diagnostic Test (Pha) (Accucheck) 1 ea 02 XX Last administered on 12/05/16 02: 00; Admin Dose 1 EA; Start 12/01/16 at 02:00 Enoxaparin Sodium (Lovenox) 40 mg DAILY SC Last administered on 12/05/16 09:13 ; Admin Dose 40 MG; Start 12/02/16 at 09:00 Hydralazine HCl (Apresoline) 50 mg TID PO Last administered on 12/05/16 12:25 ; Admin Dose 50 MG; Start 12/03/16 at 03:00 Metoprolol Tartrate (Lopressor) 25 mg BID GTB Last administered on 12/05/16 08 :59; Admin Dose 25 MG; Start 12/03/16 at 23:00 Metoprolol Tartrate (Lopressor) 5 mg Q4 PRN IV HR> 100; Start 12/03/16 at 23:00 Pantoprazole (Protonix Tab) 40 mg DAILY@06 PO ; Start 12/06/16 at 06:00 KILLIAN FLORES MD Dec 05, 2016 20:03
[2016-12-05] MEDS: HYDROmorphONE 1 MG/ML SYG IV PRN (20:54)
[2016-12-05] MEDS ORDERED: ZOLPIDEM 5 MG TAB PO PRN (22:30)
--- NOTE | 2016-12-05 22:51 | CONS ---
Date/Time of Note Date/Time of Note DATE: 12/05/16 TIME: 22:51 Consult Date/Type/Reason Admit Date/Time Nov 26, 2016 at 10:43 Initial Consult Date 11/27/16 Type of Consultation: card Objective Vital Signs Date Time Temp Pulse Resp B/P Pulse Ox O2 Delivery O2 Flow Rate FiO2 12/05/16 20:16 97.5 89 16 157/71 97 12/05/16 16:36 3.0 32 12/05/16 07:47 Nasal Cannula Intake and Output 12/04/16 12/04/16 12/05/16 15:00 23:00 07:00 Intake Total 1110 ml 390 ml 100 ml Output Total 1 ml Balance 1110 ml 389 ml 100 ml Results/Medications Result Diagram: 12/04/16 0523 12/04/16 0523 Results 24 hrs Laboratory Tests Test 12/05/16 03:02 12/05/16 08:47 12/05/16 11:51 12/05/16 18:02 Bedside Glucose 137 126 213 132 Test 12/05/16 21:00 Bedside Glucose 161 Medications Current Medications Hydromorphone HCl (Dilaudid) 0.2 mg Q1H PRN IV PAIN LEVEL 1-5 Last administered on 12/05/16 20:54; Admin Dose 0.2 MG; Start 11/26/16 at 21:30 Hydromorphone HCl (Dilaudid) 0.4 mg Q1H PRN IV PAIN LEVEL 6-10 Last administered on 12/04/16 19:21; Admin Dose 0.4 MG; Start 11/26/16 at 21:30 Ondansetron HCl 2 mg 2 mg ONCE PRN IV Nausea; Start 11/26/16 at 21:30 Magnesium Sulfate/ Dextrose (Magnesium Sulfate 1 Gm/D5W) 100 ml @ 100 mls/hr PRN PRN IVPB Mag < 2; Start 11/27/16 at 04:30 Acetaminophen/ Hydrocodone Bitart ([place] (5/325)) 1 tab Q4H PRN PO PAIN LEVEL 1 -5 Last administered on 12/04/16 15:44; Admin Dose 1 TAB; Start 11/27/16 at 20: 00 Acetaminophen/ Hydrocodone Bitart ([place] (5/325)) 2 tab Q4H PRN PO PAIN LEVEL 6 -10 Last administered on 12/05/16 04:30; Admin Dose 2 TAB; Start 11/27/16 at 20 :00 Miscellaneous Information 1 ea NOTE XX ; Start 11/28/16 at 02:45 Glucose (Glutose) 15 gm Q15M PRN PO DECREASED GLUCOSE; Start 11/28/16 at 02:45 Glucose (Glutose) 22.5 gm Q15M PRN PO DECREASED GLUCOSE; Start 11/28/16 at 02: 45 Glucagon (Glucagen) 1 mg Q15M PRN IM DECREASED GLUCOSE; Start 11/28/16 at 02:45 Glucose (Glutose) 15 gm Q15M PRN BUCCAL DECREASED GLUCOSE; Start 11/28/16 at 02 :45 Insulin Glargine (Lantus) 15 unit QAM SC Last administered on 12/05/16 09:14; Admin Dose 15 UNIT; Start 11/28/16 at 14:30 Furosemide (Lasix) 40 mg DAILY IV Last administered on 12/05/16 08:59; Admin Dose 40 MG; Start 11/30/16 at 09:00 Diagnostic Test (Pha) (Accucheck) 1 ea 02 XX Last administered on 12/05/16 02: 00; Admin Dose 1 EA; Start 12/01/16 at 02:00 Enoxaparin Sodium (Lovenox) 40 mg DAILY SC Last administered on 12/05/16 09:13 ; Admin Dose 40 MG; Start 12/02/16 at 09:00 Hydralazine HCl (Apresoline) 50 mg TID PO Last administered on 12/05/16 20:56 ; Admin Dose 50 MG; Start 12/03/16 at 03:00 Metoprolol Tartrate (Lopressor) 25 mg BID GTB Last administered on 12/05/16 20 :57; Admin Dose 25 MG; Start 12/03/16 at 23:00 Metoprolol Tartrate (Lopressor) 5 mg Q4 PRN IV HR> 100; Start 12/03/16 at 23:00 Pantoprazole (Protonix Tab) 40 mg DAILY@06 PO ; Start 12/06/16 at 06:00 Zolpidem Tartrate (Ambien) 5 mg HS PRN PO INSOMNIA; Start 12/05/16 at 22:30 Assessment/Plan Chief Complaint/Hosp Course Patient is very well-known to me from outpatient, She asked for me to see her in the hospital. she came to me as second opinion after C had coronary angiography at [facility] with echo yet that showed known ischemic cardiomyopathy with LV ejection fraction of 30% severe critical aortic stenosis. I had a JLUIS done at my old office and showed severe aortic stenosis confirmed I had a discussion with the patient that C will require surgery finally she underwent bioprosthetic aortic wall replacement by Dr. Mcnamara last night it 23 mm porcine wire was placed in our position. Patient is in ICU extubated alert and awake being paced at 80 bpm 100% underlying rhythm is junctional escape with complete heart block most likely secondary to post aVR edema around the area. Problems: Additional Assessment/Plan Doing much better PPM funtioning ramez PT d/c planning MANUEL HOOVER MD Dec 05, 2016 22:51
[2016-12-06] VITALS (13 sets, daily range): BP systolic 115–159; BP diastolic 61–75; PULSE 73–80; RESP 16–18
[2016-12-06] MEDS: ACCUCHECK XX SCH (01:22)
[2016-12-06] MEDS: PANTOPRAZOLE (EC) 40 MG TAB PO SCH (05:35)
[2016-12-06] MEDS: HYDROmorphONE 1 MG/ML SYG IV PRN (05:36)
[2016-12-06] MEDS: INSULIN ASPART [NOVOLOG] 3 ML PEN SC SCH ×7 (07:55→20:56)
[2016-12-06] MEDS: METOPROLOL 25 MG TAB GTB SCH ×2 (09:08→20:55)
[2016-12-06] MEDS: FUROSEMIDE 40 MG INJ IV SCH (09:09)
[2016-12-06] MEDS: ENOXAPARIN 40 MG/0.4 ML SYG SC SCH (09:15)
[2016-12-06] MEDS: INSULIN GLARGINE [LANtus] 3 ML PEN SC SCH (09:19)
--- NOTE | 2016-12-06 13:24 | PN ---
DATE: 12/06/2016 SUBJECTIVE: The patient is stable this morning. No new events. Continues to slowly improve. VITAL SIGNS: Temperature 98, pulse 80, blood pressure 103/68, O2 saturation 96%. NECK: Supple, no JVD or lymphadenopathy. CARDIAC: S1, S2, no added sounds or murmurs. CHEST: Diminished air entry bilaterally. ABDOMEN: Soft, nontender. No guarding or rebound. EXTREMITIES: No cyanosis, clubbing, edema. NEUROLOGIC: Grossly intact. No focal deficits. IMPRESSION AND PLAN 1. Status post respiratory failure secondary to pulmonary edema. 2. Status post permanent pacemaker for sick sinus syndrome. 3. Critical aortic stenosis. 4. History of hypertension. PLAN 1. Discharge planning okay from pulmonary standpoint. 2. Arterial blood gas on room air showed the patient needs home O2, although this is less lik robert. 3. DVT and GI prophylaxis. Dictated By: GRUPO MELENDEZ/JOAQUIM Conf#: [id number] DID#: [id number]
[2016-12-06] MEDS: HYDROCODONE/APAP (5/325) TAB PO PRN ×2 (14:58→20:54)
--- NOTE | 2016-12-06 19:02 | CONS ---
Date/Time of Note Date/Time of Note DATE: 12/06/16 TIME: 19:01 Assessment/Plan Assessment/Plan Chief Complaint/Hosp Course S/P AVR CAD LOW EF ARRTHYTHMIA RENAL INSUFFICIENCY better lung infilterate better s/p pacemaker plan ck labs ss insulin per cardio pt/ot dc planning per dr bond Problems: Consultation Date/Type/Reason Admit Date/Time Nov 26, 2016 at 10:43 Initial Consult Date 11/27/16 Type of Consultation: renal 24 HR Interval Summary Constitutional: no complaints Exam/Review of Systems Vital Signs Vitals Vital Signs Date Time Temp Pulse Resp B/P Pulse Ox O2 Delivery O2 Flow Rate FiO2 12/06/16 16:26 79 12/06/16 12:00 98.4 115/61 79 Room Air 12/06/16 08:05 2.0 12/06/16 04:30 18 12/05/16 16:36 32 Intake and Output 12/05/16 12/05/16 12/06/16 15:00 23:00 07:00 Intake Total 700 ml Output Total 1400 ml Balance -700 ml Exam Neck: supple Respiratory: diminished breath sounds Cardiovascular: regular rate and rhythm Gastrointestinal: bowel sounds (+), soft Extremities: edema (+) Results Result Diagram: 12/04/1652212/04/1623 Results 24 hrs Laboratory Tests Test 12/05/16 21:00 12/06/16 08:14 12/06/16 11:17 12/06/16 18:24 Bedside Glucose 161 123 197 155 Medications Medications Current Medications Hydromorphone HCl (Dilaudid) 0.2 mg Q1H PRN IV PAIN LEVEL 1-5 Last administered on 12/06/16 05:36; Admin Dose 0.2 MG; Start 11/26/16 at 21:30 Hydromorphone HCl (Dilaudid) 0.4 mg Q1H PRN IV PAIN LEVEL 6-10 Last administered on 12/04/16 19:21; Admin Dose 0.4 MG; Start 11/26/16 at 21:30 Ondansetron HCl 2 mg 2 mg ONCE PRN IV Nausea; Start 11/26/16 at 21:30 Magnesium Sulfate/ Dextrose (Magnesium Sulfate 1 Gm/D5W) 100 ml @ 100 mls/hr PRN PRN IVPB Mag < 2; Start 11/27/16 at 04:30 Acetaminophen/ Hydrocodone Bitart ([place] (5/325)) 1 tab Q4H PRN PO PAIN LEVEL 1 -5 Last administered on 12/04/16 15:44; Admin Dose 1 TAB; Start 11/27/16 at 20: 00 Acetaminophen/ Hydrocodone Bitart ([place] (5/325)) 2 tab Q4H PRN PO PAIN LEVEL 6 -10 Last administered on 12/06/16 14:58; Admin Dose 2 TAB; Start 11/27/16 at 20 :00 Miscellaneous Information 1 ea NOTE XX ; Start 11/28/16 at 02:45 Glucose (Glutose) 15 gm Q15M PRN PO DECREASED GLUCOSE; Start 11/28/16 at 02:45 Glucose (Glutose) 22.5 gm Q15M PRN PO DECREASED GLUCOSE; Start 11/28/16 at 02: 45 Glucagon (Glucagen) 1 mg Q15M PRN IM DECREASED GLUCOSE; Start 11/28/16 at 02:45 Glucose (Glutose) 15 gm Q15M PRN BUCCAL DECREASED GLUCOSE; Start 11/28/16 at 02 :45 Insulin Glargine (Lantus) 15 unit QAM SC Last administered on 12/06/16 09:19; Admin Dose 15 UNIT; Start 11/28/16 at 14:30 Furosemide (Lasix) 40 mg DAILY IV Last administered on 12/06/16 09:09; Admin Dose 40 MG; Start 11/30/16 at 09:00 Diagnostic Test (Pha) (Accucheck) 1 ea 02 XX Last administered on 12/05/16 02: 00; Admin Dose 1 EA; Start 12/01/16 at 02:00 Enoxaparin Sodium (Lovenox) 40 mg DAILY SC Last administered on 12/06/16 09:15 ; Admin Dose 40 MG; Start 12/02/16 at 09:00 Hydralazine HCl (Apresoline) 50 mg TID PO Last administered on 12/06/16 09:09 ; Admin Dose 50 MG; Start 12/03/16 at 03:00 Metoprolol Tartrate (Lopressor) 25 mg BID GTB Last administered on 12/06/16 09 :08; Admin Dose 25 MG; Start 12/03/16 at 23:00 Metoprolol Tartrate (Lopressor) 5 mg Q4 PRN IV HR> 100; Start 12/03/16 at 23:00 Pantoprazole (Protonix Tab) 40 mg DAILY@06 PO Last administered on 12/06/16t 05 :35; Admin Dose 40 MG; Start 12/06/16 at 06:00 Zolpidem Tartrate (Ambien) 5 mg HS PRN PO INSOMNIA; Start 12/05/16 at 22:30 KILLIAN FLORES MD Dec 06, 2016 19:02
[2016-12-07] VITALS (11 sets, daily range): BP systolic 133–148; BP diastolic 63–75; PULSE 65–78; RESP 16–18
[2016-12-07] MEDS: ACCUCHECK XX SCH (02:00)
[2016-12-07] MEDS: PANTOPRAZOLE (EC) 40 MG TAB PO SCH (05:46)
[2016-12-07] MEDS: HYDROCODONE/APAP (5/325) TAB PO PRN ×2 (05:47→20:24)
[2016-12-07 06:26] LABS: CREATININE 0.77 mg/dl (0.44-1.00)
[2016-12-07 06:27] LABS: CALCIUM 8.7 mg/dl (8.4-10.2)
[2016-12-07 06:32] LABS: BASOPHIL # 0.1 10^3/ul (0.0-0.1); BASOPHILS % 0.8 % (0.0-2.0); EOSINOPHILS # 0.2 10^3/ul (0.0-0.5); EOSINOPHILS % 2.5 % (0.0-7.0); HEMATOCRIT 27.1 % (37.0-47.0); HEMOGLOBIN 8.9 g/dl (12.0-16.0); LYMPHOCYTES % 26.9 % (15.0-51.0); MEAN CORPUSCULAR HEMOGLOBIN 27.6 pg (29.0-33.0); MEAN CORPUSCULAR HGB CONC 32.9 g/dl (32.0-37.0); MEAN PLATELET VOLUME 8.1 fl (7.4-10.4); MONOCYTE # 0.6 10^3/ul (0.3-0.9); NEUTROPHIL # 4.6 10^3/ul (1.6-7.5); NEUTROPHILS % 61.8 % (39.0-77.0); PLATELET COUNT 205 10^3/UL (140-440); RED BLOOD COUNT 3.23 10^6/ul (4.20-5.40); RED CELL DISTRIBUTION WIDTH 17.1 % (11.5-14.5); UNCORRECTED WBC 7.5 10^3/ul (4.8-10.8); WHITE BLOOD COUNT 7.5 10^3/ul (4.8-10.8)
[2016-12-07 06:54] LABS: CONDITION 1; LH ANALYZER COMMENTS 1
[2016-12-07] MEDS: INSULIN ASPART [NOVOLOG] 3 ML PEN SC SCH ×8 (07:55→20:27)
[2016-12-07] MEDS: FUROSEMIDE 40 MG INJ IV SCH (09:11)
[2016-12-07] MEDS: METOPROLOL 25 MG TAB GTB SCH ×2 (09:12→20:24)
[2016-12-07] MEDS: ENOXAPARIN 40 MG/0.4 ML SYG SC SCH (09:15)
[2016-12-07] MEDS: INSULIN GLARGINE [LANtus] 3 ML PEN SC SCH (09:16)
--- NOTE | 2016-12-07 13:25 | PN ---
DATE: 12/07/2016 PULMONARY FOLLOWUP SUBJECTIVE: Chart reviewed. Events noted. PHYSICAL EXAMINATION: VITAL SIGNS: Blood pressure 148/75, pulse 69, respiration 18, temperature 98.3. HEENT: Pupils are equal and reactive to light. NECK: Supple, no JVD noted, no cervical adenopathy, no carotid bruits heard. LUNGS: Fair breath sounds bilaterally. CARDIOVASCULAR: S1, S2 normal. ABDOMEN: Soft, nontender, no masses noted. EXTREMITIES: No clubbing, cyanosis, or edema noted. NEUROLOGICAL: Awake and alert. IMPRESSION: 1. Status post respiratory failure, stable now. 2. Pulmonary edema, resolving. 3. Status post pacemaker for sick sinus syndrome. 4. Critical aortic stenosis. 5. History of hypertension. RECOMMENDATIONS: Discharge planning in process. Dictated By: LANE REYES MD, MA/JOAQUIM Conf#: [id number] DID#: [id number]
[2016-12-07] MEDS: HYDROmorphONE 1 MG/ML SYG IV PRN (15:12)
--- NOTE | 2016-12-07 19:37 | CONS ---
Date/Time of Note Date/Time of Note DATE: 12/07/16 TIME: 19:36 Consult Date/Type/Reason Admit Date/Time Nov 26, 2016 at 10:43 Initial Consult Date 11/27/16 Type of Consultation: Cardiology Objective Vital Signs Date Time Temp Pulse Resp B/P Pulse Ox O2 Delivery O2 Flow Rate FiO2 12/07/16 18:08 2.0 12/07/16 16:28 72 12/07/16 15:47 98.0 18 147/71 98 12/06/16 12:00 Room Air 12/05/16 16:36 32 Intake and Output 12/06/16 12/06/16 12/07/16 15:00 23:00 07:00 Intake Total 680 ml 240 ml Balance 680 ml 240 ml Results/Medications Result Diagram: 12/07/16 0605 12/07/16 0605 Results 24 hrs Laboratory Tests Test 12/06/16 20:50 12/07/16 06:05 12/07/16 08:25 12/07/16 11:52 Bedside Glucose 135 124 196 Anion Gap 14 Basophils # 0.1 Basophils % 0.8 Blood Morphology Comment Blood Urea Nitrogen 27 H Calcium Level 8.7 Carbon Dioxide Level 27 Chloride Level 101 Creatinine 0.77 Eosinophils # 0.2 Eosinophils % 2.5 Glucose Level 107 Hematocrit 27.1 L Hemoglobin 8.9 L Lymphocytes # 2.0 Lymphocytes % 26.9 Mean Corpuscular Hemoglobin 27.6 L Mean Corpuscular Hemoglobin Concent 32.9 Mean Corpuscular Volume 84.0 Mean Platelet Volume 8.1 Monocytes # 0.6 Monocytes % 8.0 Neutrophils # 4.6 Neutrophils % 61.8 Nucleated Red Blood Cells # 0.0 Nucleated Red Blood Cells % 0.0 Platelet Count 205 Potassium Level 4.0 Red Blood Count 3.23 L Red Cell Distribution Width 17.1 H Sodium Level 138 White Blood Count 7.5 Test 12/07/16 17:29 Bedside Glucose 172 Medications Current Medications Hydromorphone HCl (Dilaudid) 0.2 mg Q1H PRN IV PAIN LEVEL 1-5 Last administered on 12/06/16 05:36; Admin Dose 0.2 MG; Start 11/26/16 at 21:30 Hydromorphone HCl (Dilaudid) 0.4 mg Q1H PRN IV PAIN LEVEL 6-10 Last administered on 12/07/16 15:12; Admin Dose 0.4 MG; Start 11/26/16 at 21:30 Ondansetron HCl 2 mg 2 mg ONCE PRN IV Nausea; Start 11/26/16 at 21:30 Magnesium Sulfate/ Dextrose (Magnesium Sulfate 1 Gm/D5W) 100 ml @ 100 mls/hr PRN PRN IVPB Mag < 2; Start 11/27/16 at 04:30 Acetaminophen/ Hydrocodone Bitart ([place] (5/325)) 1 tab Q4H PRN PO PAIN LEVEL 1 -5 Last administered on 12/04/16 15:44; Admin Dose 1 TAB; Start 11/27/16 at 20: 00 Acetaminophen/ Hydrocodone Bitart ([place] (5/325)) 2 tab Q4H PRN PO PAIN LEVEL 6 -10 Last administered on 12/07/16 05:47; Admin Dose 2 TAB; Start 11/27/16 at 20 :00 Miscellaneous Information 1 ea NOTE XX ; Start 11/28/16 at 02:45 Glucose (Glutose) 15 gm Q15M PRN PO DECREASED GLUCOSE; Start 11/28/16 at 02:45 Glucose (Glutose) 22.5 gm Q15M PRN PO DECREASED GLUCOSE; Start 11/28/16 at 02: 45 Glucagon (Glucagen) 1 mg Q15M PRN IM DECREASED GLUCOSE; Start 11/28/16 at 02:45 Glucose (Glutose) 15 gm Q15M PRN BUCCAL DECREASED GLUCOSE; Start 11/28/16 at 02 :45 Insulin Glargine (Lantus) 15 unit QAM SC Last administered on 12/07/16 09:16; Admin Dose 15 UNIT; Start 11/28/16 at 14:30 Furosemide (Lasix) 40 mg DAILY IV Last administered on 12/07/16 09:11; Admin Dose 40 MG; Start 11/30/16 at 09:00 Diagnostic Test (Pha) (Accucheck) 1 ea 02 XX Last administered on 12/05/16 02: 00; Admin Dose 1 EA; Start 12/01/16 at 02:00 Enoxaparin Sodium (Lovenox) 40 mg DAILY SC Last administered on 12/07/16 09:15 ; Admin Dose 40 MG; Start 12/02/16 at 09:00 Hydralazine HCl (Apresoline) 50 mg TID PO Last administered on 12/07/16 12:41 ; Admin Dose 50 MG; Start 12/03/16 at 03:00 Metoprolol Tartrate (Lopressor) 25 mg BID GTB Last administered on 12/07/16 09 :12; Admin Dose 25 MG; Start 12/03/16 at 23:00 Metoprolol Tartrate (Lopressor) 5 mg Q4 PRN IV HR> 100; Start 12/03/16 at 23:00 Pantoprazole (Protonix Tab) 40 mg DAILY@06 PO Last administered on 12/07/16 05 :46; Admin Dose 40 MG; Start 12/06/16 at 06:00 Zolpidem Tartrate (Ambien) 5 mg HS PRN PO INSOMNIA; Start 12/05/16 at 22:30 Assessment/Plan Chief Complaint/Hosp Course Patient is very well-known to me from outpatient, She asked for me to see her in the hospital. she came to me as second opinion after C had coronary angiography at [facility] with echo yet that showed known ischemic cardiomyopathy with LV ejection fraction of 30% severe critical aortic stenosis. I had a JLUIS done at my old office and showed severe aortic stenosis confirmed I had a discussion with the patient that C will require surgery finally she underwent bioprosthetic aortic wall replacement by Dr. Mcnamara last night it 23 mm porcine wire was placed in our position. Patient is in ICU extubated alert and awake being paced at 80 bpm 100% underlying rhythm is junctional escape with complete heart block most likely secondary to post aVR edema around the area. Problems: Additional Assessment/Plan Stable s/p PPM implant AVR D/C planning MANUEL HOOVER MD Dec 07, 2016 19:37
--- NOTE | 2016-12-07 20:53 | PN ---
Date/Time of Note Date/Time of Note DATE: 12/07/16 TIME: 20:53 Assessment/Plan VTE Prophylaxis VTE Prophylaxis Intervention: other Lines/Catheters IV Catheter Type (from Nrsg): Saline Lock Assessment/Plan Chief Complaint/Hosp Course S/P AVR CAD LOW EF ARRTHYTHMIA RENAL INSUFFICIENCY better lung infilterate better s/p pacemaker plan ss insulin per cardio pt/ot dc planning per dr bond Problems: Subjective 24 Hr Interval Summary Cardiovascular: no complaints Gastrointestinal: no complaints Exam/Review of Systems Vital Signs Vitals Vital Signs Date Time Temp Pulse Resp B/P Pulse Ox O2 Delivery O2 Flow Rate FiO2 12/07/16 20:14 78 12/07/16 20:11 97.8 18 133/67 96 12/07/16 18:08 2.0 12/06/16 12:00 Room Air 12/05/16 16:36 32 Intake and Output 12/06/16 12/06/16 12/07/16 15:00 23:00 07:00 Intake Total 680 ml 240 ml Balance 680 ml 240 ml Exam Respiratory: clear to auscultation Cardiovascular: regular rate and rhythm Gastrointestinal: soft Musculoskeletal: nl extremities to inspection Extremities: normal pulses Results Result Diagram: 12/07/16 0605 12/07/16 0605 Results 24 hrs Laboratory Tests Test 12/07/16 06:05 12/07/16 08:25 12/07/16 11:52 12/07/16 17:29 Anion Gap 14 Basophils # 0.1 Basophils % 0.8 Blood Morphology Comment Blood Urea Nitrogen 27 H Calcium Level 8.7 Carbon Dioxide Level 27 Chloride Level 101 Creatinine 0.77 Eosinophils # 0.2 Eosinophils % 2.5 Glucose Level 107 Hematocrit 27.1 L Hemoglobin 8.9 L Lymphocytes # 2.0 Lymphocytes % 26.9 Mean Corpuscular Hemoglobin 27.6 L Mean Corpuscular Hemoglobin Concent 32.9 Mean Corpuscular Volume 84.0 Mean Platelet Volume 8.1 Monocytes # 0.6 Monocytes % 8.0 Neutrophils # 4.6 Neutrophils % 61.8 Nucleated Red Blood Cells # 0.0 Nucleated Red Blood Cells % 0.0 Platelet Count 205 Potassium Level 4.0 Red Blood Count 3.23 L Red Cell Distribution Width 17.1 H Sodium Level 138 White Blood Count 7.5 Bedside Glucose 124 196 172 Test 12/07/16 20:22 Bedside Glucose 227 H Medications Medications Current Medications Hydromorphone HCl (Dilaudid) 0.2 mg Q1H PRN IV PAIN LEVEL 1-5 Last administered on 12/06/16 05:36; Admin Dose 0.2 MG; Start 11/26/16 at 21:30 Hydromorphone HCl (Dilaudid) 0.4 mg Q1H PRN IV PAIN LEVEL 6-10 Last administered on 12/07/16 15:12; Admin Dose 0.4 MG; Start 11/26/16 at 21:30 Ondansetron HCl 2 mg 2 mg ONCE PRN IV Nausea; Start 11/26/16 at 21:30 Magnesium Sulfate/ Dextrose (Magnesium Sulfate 1 Gm/D5W) 100 ml @ 100 mls/hr PRN PRN IVPB Mag < 2; Start 11/27/16 at 04:30 Acetaminophen/ Hydrocodone Bitart ([place] (5/325)) 1 tab Q4H PRN PO PAIN LEVEL 1 -5 Last administered on 12/04/16 15:44; Admin Dose 1 TAB; Start 11/27/16 at 20: 00 Acetaminophen/ Hydrocodone Bitart ([place] (5/325)) 2 tab Q4H PRN PO PAIN LEVEL 6 -10 Last administered on 12/07/16 20:24; Admin Dose 2 TAB; Start 11/27/16 at 20 :00 Miscellaneous Information 1 ea NOTE XX ; Start 11/28/16 at 02:45 Glucose (Glutose) 15 gm Q15M PRN PO DECREASED GLUCOSE; Start 11/28/16 at 02:45 Glucose (Glutose) 22.5 gm Q15M PRN PO DECREASED GLUCOSE; Start 11/28/16 at 02: 45 Glucagon (Glucagen) 1 mg Q15M PRN IM DECREASED GLUCOSE; Start 11/28/16 at 02:45 Glucose (Glutose) 15 gm Q15M PRN BUCCAL DECREASED GLUCOSE; Start 11/28/16 at 02 :45 Insulin Glargine (Lantus) 15 unit QAM SC Last administered on 12/07/16 09:16; Admin Dose 15 UNIT; Start 11/28/16 at 14:30 Furosemide (Lasix) 40 mg DAILY IV Last administered on 12/07/16 09:11; Admin Dose 40 MG; Start 11/30/16 at 09:00 Diagnostic Test (Pha) (Accucheck) 1 ea 02 XX Last administered on 12/05/16 02: 00; Admin Dose 1 EA; Start 12/01/16 at 02:00 Enoxaparin Sodium (Lovenox) 40 mg DAILY SC Last administered on 12/07/16 09:15 ; Admin Dose 40 MG; Start 12/02/16 at 09:00 Hydralazine HCl (Apresoline) 50 mg TID PO Last administered on 12/07/16 20:24 ; Admin Dose 50 MG; Start 12/03/16 at 03:00 Metoprolol Tartrate (Lopressor) 25 mg BID GTB Last administered on 12/07/16 20 :24; Admin Dose 25 MG; Start 12/03/16 at 23:00 Metoprolol Tartrate (Lopressor) 5 mg Q4 PRN IV HR> 100; Start 12/03/16 at 23:00 Pantoprazole (Protonix Tab) 40 mg DAILY@06 PO Last administered on 12/07/16 05 :46; Admin Dose 40 MG; Start 12/06/16 at 06:00 Zolpidem Tartrate (Ambien) 5 mg HS PRN PO INSOMNIA; Start 12/05/16 at 22:30 KILLIAN FLORES MD Dec 07, 2016 20:53
[2016-12-08] VITALS (14 sets, daily range): BP systolic 127–167; BP diastolic 60–78; PULSE 60–75; RESP 18–20
[2016-12-08] MEDS: HYDROCODONE/APAP (5/325) TAB PO PRN ×3 (01:09→18:12)
[2016-12-08] MEDS: ACCUCHECK XX SCH (02:18)
[2016-12-08] MEDS: PANTOPRAZOLE (EC) 40 MG TAB PO SCH (06:07)
[2016-12-08] MEDS: FUROSEMIDE 40 MG INJ IV SCH (08:33)
[2016-12-08] MEDS: METOPROLOL 25 MG TAB GTB SCH ×2 (08:33→20:45)
[2016-12-08] MEDS: INSULIN ASPART [NOVOLOG] 3 ML PEN SC SCH ×7 (08:35→20:55)
[2016-12-08] MEDS: ENOXAPARIN 40 MG/0.4 ML SYG SC SCH (08:36)
[2016-12-08] MEDS: INSULIN GLARGINE [LANtus] 3 ML PEN SC SCH (08:43)
--- NOTE | 2016-12-08 10:17 | PN ---
Date/Time of Note Date/Time of Note DATE: 12/08/16 TIME: 10:13 Assessment/Plan VTE Prophylaxis VTE Prophylaxis Intervention: LMWH Lines/Catheters IV Catheter Type (from Nrsg): Saline Lock Assessment/Plan Assessment/Plan 1. Status post respiratory failure secondary to pulmonary edema. 2. Status post permanent pacemaker for sick sinus syndrome. 3. Critical aortic stenosis s/p aortic valve replacement 4. History of hypertension. Plan: continue current care pulmonary toilet ambulate pt in [facility] for DVT prophylaxis On IV lasix- will switch to PO lasix CXR in AM Once cleared by will plan for d/c Subjective 24 Hr Interval Summary Free Text/Dictation afebrile, c/o SOB with ambulation,Bp stable Exam/Review of Systems Vital Signs Vitals Vital Signs Date Time Temp Pulse Resp B/P Pulse Ox O2 Delivery O2 Flow Rate FiO2 12/08/16 08:04 62 12/08/16 07:44 97.5 20 132/63 92 12/08/16 04:17 2.0 12/07/16 20:20 Nasal Cannula 12/05/16 16:36 32 Intake and Output 12/07/16 12/07/16 12/08/16 15:00 23:00 07:00 Intake Total 880 ml 240 ml Balance 880 ml 240 ml Exam Neck: non-tender, supple Respiratory: clear to auscultation, normal air movement Cardiovascular: nl pulses, regular rate and rhythm Gastrointestinal: nl liver, spleen, non-tender, soft Results Result Diagram: 12/07/16 0605 12/07/16 0605 Results 24 hrs Laboratory Tests Test 12/07/16 11:52 12/07/16 17:29 12/07/16 20:22 12/08/16 02:04 Bedside Glucose 196 172 227 H 175 Test 12/08/16 07:27 Bedside Glucose 147 Medications Medications Current Medications Hydromorphone HCl (Dilaudid) 0.2 mg Q1H PRN IV PAIN LEVEL 1-5 Last administered on 12/06/16 05:36; Admin Dose 0.2 MG; Start 11/26/16 at 21:30 Hydromorphone HCl (Dilaudid) 0.4 mg Q1H PRN IV PAIN LEVEL 6-10 Last administered on 12/07/16 15:12; Admin Dose 0.4 MG; Start 11/26/16 at 21:30 Ondansetron HCl 2 mg 2 mg ONCE PRN IV Nausea; Start 11/26/16 at 21:30 Magnesium Sulfate/ Dextrose (Magnesium Sulfate 1 Gm/D5W) 100 ml @ 100 mls/hr PRN PRN IVPB Mag < 2; Start 11/27/16 at 04:30 Acetaminophen/ Hydrocodone Bitart ([place] (5/325)) 1 tab Q4H PRN PO PAIN LEVEL 1 -5 Last administered on 12/04/16 15:44; Admin Dose 1 TAB; Start 11/27/16 at 20: 00 Acetaminophen/ Hydrocodone Bitart ([place] (5/325)) 2 tab Q4H PRN PO PAIN LEVEL 6 -10 Last administered on 12/08/16 06:07; Admin Dose 2 TAB; Start 11/27/16 at 20 :00 Miscellaneous Information 1 ea NOTE XX ; Start 11/28/16 at 02:45 Glucose (Glutose) 15 gm Q15M PRN PO DECREASED GLUCOSE; Start 11/28/16 at 02:45 Glucose (Glutose) 22.5 gm Q15M PRN PO DECREASED GLUCOSE; Start 11/28/16 at 02: 45 Glucagon (Glucagen) 1 mg Q15M PRN IM DECREASED GLUCOSE; Start 11/28/16 at 02:45 Glucose (Glutose) 15 gm Q15M PRN BUCCAL DECREASED GLUCOSE; Start 11/28/16 at 02 :45 Insulin Glargine (Lantus) 15 unit QAM SC Last administered on 12/08/16 08:43; Admin Dose 15 UNIT; Start 11/28/16 at 14:30 Furosemide (Lasix) 40 mg DAILY IV Last administered on 12/08/16 08:33; Admin Dose 40 MG; Start 11/30/16 at 09:00 Diagnostic Test (Pha) (Accucheck) 1 ea 02 XX Last administered on 12/08/16 02: 18; Admin Dose 1 EA; Start 12/01/16 at 02:00 Enoxaparin Sodium (Lovenox) 40 mg DAILY SC Last administered on 12/08/16 08:36 ; Admin Dose 40 MG; Start 12/02/16 at 09:00 Hydralazine HCl (Apresoline) 50 mg TID PO Last administered on 12/08/16 08:32 ; Admin Dose 50 MG; Start 12/03/16 at 03:00 Metoprolol Tartrate (Lopressor) 25 mg BID GTB Last administered on 12/08/16 08 :33; Admin Dose 25 MG; Start 12/03/16 at 23:00 Metoprolol Tartrate (Lopressor) 5 mg Q4 PRN IV HR> 100; Start 12/03/16 at 23:00 Pantoprazole (Protonix Tab) 40 mg DAILY@06 PO Last administered on 12/08/16 06 :07; Admin Dose 40 MG; Start 12/06/16 at 06:00 Zolpidem Tartrate (Ambien) 5 mg HS PRN PO INSOMNIA; Start 12/05/16 at 22:30 MARSHA SALAZAR MD Dec 08, 2016 10:17
--- NOTE | 2016-12-08 16:24 | PN ---
DATE: 12/08/2016 SUBJECTIVE: Chart reviewed. No significant events noted. PHYSICAL EXAMINATION: VITAL SIGNS: Blood pressure 137/69, pulse 68, respirations 18, temperature 98.1, currently on 2 lit ers nasal cannula saturating 98%. HEENT: Pupils are equal and reactive to light. NECK: Supple, no JVD noted, no cervical adenopathy, no carotid bruits heard. LUNGS: Fair breath sounds bilaterally. CARDIOVASCULAR: S1, S2 normal. ABDOMEN: Soft, nontender. No organomegaly or masses noted. EXTREMITIES: No clubbing, cyanosis, or edema noted. NEUROLOGICAL: Awake. IMPRESSION: 1. Status post respiratory failure. 2. Pulmonary edema, resolved. 3. Status post pacemaker for sick sinus syndrome. 4. Critical aortic stenosis. 5. History of hypertension. RECOMMENDATIONS: 1. Continue current treatment. 2. Discharge planning in process. Dictated By: LANE REYES MD, MA/JOAQUIM Conf#: [id number] DID#: [id number]
[2016-12-08] MEDS: HYDROmorphONE 1 MG/ML SYG IV PRN (17:01)
[2016-12-09] VITALS (12 sets, daily range): BP systolic 124–143; BP diastolic 59–69; PULSE 62–72; RESP 16–20
[2016-12-09] MEDS: HYDROCODONE/APAP (5/325) TAB PO PRN ×4 (02:53→21:40)
[2016-12-09] MEDS: ACCUCHECK XX SCH (02:56)
[2016-12-09] MEDS: PANTOPRAZOLE (EC) 40 MG TAB PO SCH (05:40)
[2016-12-09] MEDS: INSULIN ASPART [NOVOLOG] 3 ML PEN SC SCH ×7 (07:56→21:00)
[2016-12-09] MEDS: INSULIN GLARGINE [LANtus] 3 ML PEN SC SCH (07:58)
[2016-12-09] MEDS: FUROSEMIDE 40 MG TAB PO SCH (08:30)
[2016-12-09] MEDS: METOPROLOL 25 MG TAB GTB SCH ×2 (08:30→21:41)
[2016-12-09] MEDS: ENOXAPARIN 40 MG/0.4 ML SYG SC SCH (08:33)
--- NOTE | 2016-12-09 10:11 | RADRPT ---
PROCEDURE: XR Chest 1 View. CLINICAL INDICATION: Shortness of breath, congestion, status post surgery. TECHNIQUE: AP view of the chest were obtained. COMPARISON: December 03, 2016 FINDINGS: Heart is large. Left-sided dual chamber pacemaker has its leads over the heart. No pneumothorax as visualized. Median sternotomy wires overlie the heart. Retrocardiac opacity is identified. The eddi gs are hypoinflated. Osseous structures are intact. IMPRESSION: Cardiomegaly. Left-sided pacemaker with its leads over the heart. No pneumothorax. Hypoinflated lungs. Stable retrocardiac opacity that may reflect left lower lobe atelectasis or infiltrate combined with small pleural effusion. RPTAT: AA .Franc Wyatt MD, Date Time Electronically viewed and signed by .Franc Wyatt MD, on 12/09/2016 10:11 .P/
--- NOTE | 2016-12-09 10:59 | PN ---
Date/Time of Note Date/Time of Note DATE: 12/09/16 TIME: 10:58 Assessment/Plan VTE Prophylaxis VTE Prophylaxis Intervention: LMWH Lines/Catheters IV Catheter Type (from Nrsg): Saline Lock Assessment/Plan Assessment/Plan 1. Status post respiratory failure secondary to pulmonary edema. 2. Status post permanent pacemaker for sick sinus syndrome. 3. Critical aortic stenosis s/p aortic valve replacement 4. History of hypertension. Plan: continue current care pulmonary toilet ambulate pt in [facility] for DVT prophylaxis On IV lasix- will switch to PO lasix CXR in AM Once cleared by will plan for d/c Subjective 24 Hr Interval Summary Free Text/Dictation pt remained stable, C/o SOB with ambulation overnight Exam/Review of Systems Vital Signs Vitals Vital Signs Date Time Temp Pulse Resp B/P Pulse Ox O2 Delivery O2 Flow Rate FiO2 12/09/16 08:26 66 12/09/16 07:42 98.3 20 138/60 98 12/08/16 04:17 2.0 12/07/16 20:20 Nasal Cannula 12/05/16 16:36 32 Intake and Output 12/08/16 12/08/16 12/09/16 15:00 23:00 07:00 Intake Total 720 ml 350 ml Balance 720 ml 350 ml Exam Neck: non-tender, supple Respiratory: clear to auscultation, normal air movement Cardiovascular: nl pulses, regular rate and rhythm Gastrointestinal: nl liver, spleen, non-tender, soft Results Result Diagram: 12/07/16 0605 12/07/16 0605 Results 24 hrs Laboratory Tests Test 12/08/16 11:22 12/08/16 17:14 12/08/16 20:43 12/09/16 02:55 Bedside Glucose 148 222 H 219 126 Test 12/09/16 07:47 Bedside Glucose 151 Medications Medications Current Medications Hydromorphone HCl (Dilaudid) 0.2 mg Q1H PRN IV PAIN LEVEL 1-5 Last administered on 12/06/16 05:36; Admin Dose 0.2 MG; Start 11/26/16 at 21:30 Hydromorphone HCl (Dilaudid) 0.4 mg Q1H PRN IV PAIN LEVEL 6-10 Last administered on 12/08/16 17:01; Admin Dose 0.4 MG; Start 11/26/16 at 21:30 Ondansetron HCl 2 mg 2 mg ONCE PRN IV Nausea; Start 11/26/16 at 21:30 Magnesium Sulfate/ Dextrose (Magnesium Sulfate 1 Gm/D5W) 100 ml @ 100 mls/hr PRN PRN IVPB Mag < 2; Start 11/27/16 at 04:30 Acetaminophen/ Hydrocodone Bitart ([place] (5/325)) 1 tab Q4H PRN PO PAIN LEVEL 1 -5 Last administered on 12/04/16 15:44; Admin Dose 1 TAB; Start 11/27/16 at 20: 00 Acetaminophen/ Hydrocodone Bitart ([place] (5/325)) 2 tab Q4H PRN PO PAIN LEVEL 6 -10 Last administered on 12/09/16 09:19; Admin Dose 2 TAB; Start 11/27/16 at 20 :00 Miscellaneous Information 1 ea NOTE XX ; Start 11/28/16 at 02:45 Glucose (Glutose) 15 gm Q15M PRN PO DECREASED GLUCOSE; Start 11/28/16 at 02:45 Glucose (Glutose) 22.5 gm Q15M PRN PO DECREASED GLUCOSE; Start 11/28/16 at 02: 45 Glucagon (Glucagen) 1 mg Q15M PRN IM DECREASED GLUCOSE; Start 11/28/16 at 02:45 Glucose (Glutose) 15 gm Q15M PRN BUCCAL DECREASED GLUCOSE; Start 11/28/16 at 02 :45 Insulin Glargine (Lantus) 15 unit QAM SC Last administered on 12/09/16 07:58; Admin Dose 15 UNIT; Start 11/28/16 at 14:30 Diagnostic Test (Pha) (Accucheck) 1 ea 02 XX Last administered on 12/09/16 02: 56; Admin Dose 1 EA; Start 12/01/16 at 02:00 Enoxaparin Sodium (Lovenox) 40 mg DAILY SC Last administered on 12/09/16 08:33 ; Admin Dose 40 MG; Start 12/02/16 at 09:00 Hydralazine HCl (Apresoline) 50 mg TID PO Last administered on 12/09/16 08:30 ; Admin Dose 50 MG; Start 12/03/16 at 03:00 Metoprolol Tartrate (Lopressor) 25 mg BID GTB Last administered on 12/09/16 08 :30; Admin Dose 25 MG; Start 12/03/16 at 23:00 Metoprolol Tartrate (Lopressor) 5 mg Q4 PRN IV HR> 100; Start 12/03/16 at 23:00 Pantoprazole (Protonix Tab) 40 mg DAILY@06 PO Last administered on 12/09/16 05 :40; Admin Dose 40 MG; Start 12/06/16 at 06:00 Zolpidem Tartrate (Ambien) 5 mg HS PRN PO INSOMNIA Last administered on 20:49; Admin Dose 5 MG; Start 12/05/16 at 22:30 Furosemide (Lasix) 40 mg DAILY PO Last administered on 12/09/16 08:30; Admin Dose 40 MG; Start 12/09/16 at 09:00 MARSHA SALAZAR MD Dec 09, 2016 10:59
--- NOTE | 2016-12-09 17:47 | PN ---
DATE: 12/09/2016 PULMONARY FOLLOWUP SUBJECTIVE: Chart reviewed. Events noted. The patient currently on 2 liters nasal cannula, satura ting 96%, and does not appear in acute distress. She, however, does have dyspnea on exertion. PHYSICAL EXAMINATION: VITAL SIGNS: Blood pressure 124/59, pulse 64, respiration 18, temperature 98.6. HEENT: Pupils are equal and reactive to light. NECK: Supple. No JVD noted, no cervical lymphadenopathy noted, no carotid bruits heard. LUNGS: Fair breath sounds bilaterally. CARDIOVASCULAR: S1, S2 normal. ABDOMEN: Soft, nontender. No organomegaly or masses noted. EXTREMITIES: No clubbing or cyanosis noted. NEUROLOGICAL: Awake. IMAGING: Chest x-ray shows left-sided pacemaker in its place. No pneumothorax. Left lower lobe at electasis. IMPRESSION: 1. Status post respiratory failure. 2. Pulmonary edema, resolved. 3. Status post pacemaker insertion for sick sinus syndrome. 4. Critical aortic stenosis. 5. History of hypertension. RECOMMENDATIONS: 1. Continue current treatment. 2. Physical therapy. 3. Consider transfer to acute rehabilitation. Dictated By: LANE REYES MD, MA/JOAQUIM Conf#: [id number] DID#: [id number] CC: JOSELINE NICOLE MD;*End*
[2016-12-10] VITALS (12 sets, daily range): BP systolic 132–145; BP diastolic 60–67; PULSE 60–68; RESP 16–20
[2016-12-10] MEDS: ACCUCHECK XX SCH ×2 (02:00→21:31)
[2016-12-10] MEDS: HYDROCODONE/APAP (5/325) TAB PO PRN ×3 (02:36→21:39)
[2016-12-10] MEDS: PANTOPRAZOLE (EC) 40 MG TAB PO SCH (05:58)
[2016-12-10 07:38] LABS: BASOPHIL # 0.1 10^3/ul (0.0-0.1); BASOPHILS % 0.8 % (0.0-2.0); EOSINOPHILS # 0.3 10^3/ul (0.0-0.5); EOSINOPHILS % 3.4 % (0.0-7.0); HEMATOCRIT 26.9 % (37.0-47.0); HEMOGLOBIN 8.8 g/dl (12.0-16.0); LYMPHOCYTES # 1.9 10^3/ul (0.8-2.9); LYMPHOCYTES % 22.7 % (15.0-51.0); MEAN CORPUSCULAR HEMOGLOBIN 27.3 pg (29.0-33.0); MEAN CORPUSCULAR HGB CONC 32.8 g/dl (32.0-37.0); MEAN PLATELET VOLUME 7.7 fl (7.4-10.4); MONOCYTE # 0.7 10^3/ul (0.3-0.9); MONOCYTES % 7.7 % (0.0-11.0); NEUTROPHIL # 5.6 10^3/ul (1.6-7.5); NEUTROPHILS % 65.4 % (39.0-77.0); PLATELET COUNT 299 10^3/UL (140-440); RED BLOOD COUNT 3.24 10^6/ul (4.20-5.40); RED CELL DISTRIBUTION WIDTH 17.2 % (11.5-14.5); UNCORRECTED WBC 8.6 10^3/ul (4.8-10.8); WHITE BLOOD COUNT 8.6 10^3/ul (4.8-10.8)
[2016-12-10 07:40] LABS: CONDITION 1; LH ANALYZER COMMENTS 1
[2016-12-10 07:45] LABS: POTASSIUM 4.2 mmol/L (3.5-5.1)
[2016-12-10 07:48] LABS: CREATININE 0.84 mg/dl (0.44-1.00)
[2016-12-10 07:51] LABS: PROTIME 13.2 Sec (12.2-14.2)
[2016-12-10 07:52] LABS: PARTIAL THROMBOPLASTIN TIME 32.4 Sec (25.0-35.0)
[2016-12-10] MEDS: INSULIN ASPART [NOVOLOG] 3 ML PEN SC SCH ×7 (07:55→21:00)
[2016-12-10] MEDS: INSULIN GLARGINE [LANtus] 3 ML PEN SC SCH (08:03)
[2016-12-10] MEDS: METOPROLOL 25 MG TAB GTB SCH ×2 (08:40→21:30)
[2016-12-10] MEDS: FUROSEMIDE 40 MG TAB PO SCH (08:41)
[2016-12-10] MEDS: ENOXAPARIN 40 MG/0.4 ML SYG SC SCH (08:43)
--- NOTE | 2016-12-10 12:20 | CONS ---
Date/Time of Note Date/Time of Note DATE: 12/10/16 TIME: 12:14 Assessment/Plan Assessment/Plan Additional Assessment/Plan Assessment and plan; Patient status post aortic valve surgery CHF Left pleural effusion Hypertension Patient to be scheduled for ultrasound-guided left thoracentesis Meanwhile continue current medications Consultation Date/Type/Reason Admit Date/Time Nov 26, 2016 at 10:43 Initial Consult Date 11/27/16 Type of Consultation: pulmonary Exam/Review of Systems Vital Signs Vitals Vital Signs Date Time Temp Pulse Resp B/P Pulse Ox O2 Delivery O2 Flow Rate FiO2 12/10/16 12:04 65 12/10/16 11:55 97.6 20 140/65 97 12/08/16 04:17 2.0 12/07/16 20:20 Nasal Cannula Intake and Output 12/09/16 12/09/16 12/10/16 15:00 23:00 07:00 Intake Total 740 ml 520 ml Balance 740 ml 520 ml Exam Ms. Ms. Valerie Nobles is doing very well. Patient currently is ambulating in the room. There is a very minimal shortness of breath. Denies any chest pain. Denies any coughing. Denies any abdominal pain, nausea, vomiting. General exam; Patient currently in no distress. HEENT examination; supple neck, no JVD, no lymphadenopathy, pharynx is clear. Next Chest examination LA: There is a well-healed sternal scar, S1-S2 audible, regular rate and rhythm. Decreased breath sounds left lower lobe with bronchial breath sounds, rest of the lung graf are clear. Abdomen; soft, nontender, no organomegaly, bowel sounds audible. Extremities; there is no peripheral edema, pulses 1+ bilaterally. [employer]PER[employer] examination; no focal deficit Chest x-ray was reviewed from today which is showing cardiomegaly and sternal wires are again identified pacemaker is identified there is moderate left pleural effusion Results Result Diagram: 12/10/16 0620 12/10/16 0620 Results 24 hrs Laboratory Tests Test 12/09/16 17:30 12/09/16 20:33 12/10/16 06:20 12/10/16 07:59 Bedside Glucose 109 140 133 Activated Partial Thromboplast Time 32.4 Anion Gap 14 Basophils # 0.1 Basophils % 0.8 Blood Morphology Comment Blood Urea Nitrogen 22 H Calcium Level 9.0 Carbon Dioxide Level 28 Chloride Level 101 Creatinine 0.84 Eosinophils # 0.3 Eosinophils % 3.4 Glucose Level 127 Hematocrit 26.9 L Hemoglobin 8.8 L INR International Normalized Ratio 1.00 Lymphocytes # 1.9 Lymphocytes % 22.7 Mean Corpuscular Hemoglobin 27.3 L Mean Corpuscular Hemoglobin Concent 32.8 Mean Corpuscular Volume 83.0 Mean Platelet Volume 7.7 Monocytes # 0.7 Monocytes % 7.7 Neutrophils # 5.6 Neutrophils % 65.4 Nucleated Red Blood Cells # 0.0 Nucleated Red Blood Cells % 0.0 Platelet Count 299 # Potassium Level 4.2 Prothrombin Time 13.2 Prothrombin Time Ratio 1.0 Red Blood Count 3.24 L Red Cell Distribution Width 17.2 H Sodium Level 139 White Blood Count 8.6 Medications Medications Current Medications Hydromorphone HCl (Dilaudid) 0.2 mg Q1H PRN IV PAIN LEVEL 1-5 Last administered on 12/06/16 05:36; Admin Dose 0.2 MG; Start 11/26/16 at 21:30 Hydromorphone HCl (Dilaudid) 0.4 mg Q1H PRN IV PAIN LEVEL 6-10 Last administered on 12/08/16 17:01; Admin Dose 0.4 MG; Start 11/26/16 at 21:30 Ondansetron HCl 2 mg 2 mg ONCE PRN IV Nausea; Start 11/26/16 at 21:30 Magnesium Sulfate/ Dextrose (Magnesium Sulfate 1 Gm/D5W) 100 ml @ 100 mls/hr PRN PRN IVPB Mag < 2; Start 11/27/16 at 04:30 Acetaminophen/ Hydrocodone Bitart ([place] (5/325)) 1 tab Q4H PRN PO PAIN LEVEL 1 -5 Last administered on 12/09/16 21:40; Admin Dose 1 TAB; Start 11/27/16 at 20: 00 Acetaminophen/ Hydrocodone Bitart ([place] (5/325)) 2 tab Q4H PRN PO PAIN LEVEL 6 -10 Last administered on 12/10/16 02:36; Admin Dose 2 TAB; Start 11/27/16 at 20 :00 Miscellaneous Information 1 ea NOTE XX ; Start 11/28/16 at 02:45 Glucose (Glutose) 15 gm Q15M PRN PO DECREASED GLUCOSE; Start 11/28/16 at 02:45 Glucose (Glutose) 22.5 gm Q15M PRN PO DECREASED GLUCOSE; Start 11/28/16 at 02: 45 Glucagon (Glucagen) 1 mg Q15M PRN IM DECREASED GLUCOSE; Start 11/28/16 at 02:45 Glucose (Glutose) 15 gm Q15M PRN BUCCAL DECREASED GLUCOSE; Start 11/28/16 at 02 :45 Insulin Glargine (Lantus) 15 unit QAM SC Last administered on 12/10/16 08:03; Admin Dose 15 UNIT; Start 11/28/16 at 14:30 Diagnostic Test (Pha) (Accucheck) 1 ea 02 XX Last administered on 12/10/16 02: 00; Admin Dose 1 EA; Start 12/01/16 at 02:00 Enoxaparin Sodium (Lovenox) 40 mg DAILY SC Last administered on 12/10/16 08:43 ; Admin Dose 40 MG; Start 12/02/16 at 09:00 Hydralazine HCl (Apresoline) 50 mg TID PO Last administered on 12/10/16 08:41 ; Admin Dose 50 MG; Start 12/03/16 at 03:00 Metoprolol Tartrate (Lopressor) 25 mg BID GTB Last administered on 12/10/16 08 :40; Admin Dose 25 MG; Start 12/03/16 at 23:00 Metoprolol Tartrate (Lopressor) 5 mg Q4 PRN IV HR> 100; Start 12/03/16 at 23:00 Pantoprazole (Protonix Tab) 40 mg DAILY@06 PO Last administered on 12/10/16 05 :58; Admin Dose 40 MG; Start 12/06/16 at 06:00 Zolpidem Tartrate (Ambien) 5 mg HS PRN PO INSOMNIA Last administered on 20:49; Admin Dose 5 MG; Start 12/05/16 at 22:30 Furosemide (Lasix) 40 mg DAILY PO Last administered on 12/10/16 08:41; Admin Dose 40 MG; Start 12/09/16 at 09:00 JYOTI GUEVARA Dec 10, 2016 12:20
--- NOTE | 2016-12-10 15:17 | RADRPT ---
PROCEDURE: XR Chest. CLINICAL INDICATION: Congestive heart failure TECHNIQUE: Chest AP portable. COMPARISON: 12/09/2016 FINDINGS: Sternotomy and CABG. Left-sided dual lead pacemaker. The mediastinal structures are unremarkable. There is mild cardiomegaly. There is pulmonary venous hypertension. There are low lung volumes. There is LLL retrocardiac consolidation/atelectasis. The re is a small left pleural effusion. The osseous structures are unremarkable. IMPRESSION: Mild cardiomegaly. Pulmonary venous hypertension. Low lung volumes. No change in the LLL retrocardiac consolidation/atelectasis. Small left pleural effusion. RPTAT: HGDB .Mateo San MD, Date Time Electronically viewed and signed by .Mateo San MD, on 12/10/2016 15:17 .B/
--- NOTE | 2016-12-10 15:56 | RADRPT ---
PROCEDURE: US Chest. CLINICAL INDICATION: Shortness of breath. TECHNIQUE: Ultrasound of both sides of the chest was performed in the axial and sagittal planes. COMPARISON: No prior study is available for comparison. FINDINGS: There is no pleural effusion on either side. IMPRESSION: 1. No pleural effusion on either side. 2. Thoracentesis was not performed. RPTAT: QQ .Blu Clarke MD, MD Date Time Electronically viewed and signed by .Blu Clarke MD, on 12/10/2016 14:38 .R/
--- NOTE | 2016-12-10 16:13 | CONS ---
Date/Time of Note Date/Time of Note DATE: 12/10/16 TIME: 16:12 Assessment/Plan Assessment/Plan Chief Complaint/Hosp Course S/P AVR CAD LOW EF ARRTHYTHMIA RENAL INSUFFICIENCY better lung infilterate better s/p pacemaker edema plan ss insulin per cardio pt/ot dc planning per dr bond Problems: Consultation Date/Type/Reason Admit Date/Time Nov 26, 2016 at 10:43 Initial Consult Date 11/27/16 Type of Consultation: renal 24 HR Interval Summary Constitutional: no complaints Exam/Review of Systems Vital Signs Vitals Vital Signs Date Time Temp Pulse Resp B/P Pulse Ox O2 Delivery O2 Flow Rate FiO2 12/10/16 12:04 65 12/10/16 11:55 97.6 20 140/65 97 12/08/16 04:17 2.0 12/07/16 20:20 Nasal Cannula Intake and Output 12/09/16 12/09/16 12/10/16 15:00 23:00 07:00 Intake Total 740 ml 520 ml Balance 740 ml 520 ml Exam Respiratory: clear to auscultation Cardiovascular: regular rate and rhythm Gastrointestinal: soft Musculoskeletal: nl extremities to inspection Extremities: normal pulses Results Result Diagram: 12/10/16 0620 12/10/16 0620 Results 24 hrs Laboratory Tests Test 12/09/16 17:30 12/09/16 20:33 12/10/16 06:20 12/10/16 07:59 Bedside Glucose 109 140 133 Activated Partial Thromboplast Time 32.4 Anion Gap 14 Basophils # 0.1 Basophils % 0.8 Blood Morphology Comment Blood Urea Nitrogen 22 H Calcium Level 9.0 Carbon Dioxide Level 28 Chloride Level 101 Creatinine 0.84 Eosinophils # 0.3 Eosinophils % 3.4 Glucose Level 127 Hematocrit 26.9 L Hemoglobin 8.8 L INR International Normalized Ratio 1.00 Lymphocytes # 1.9 Lymphocytes % 22.7 Mean Corpuscular Hemoglobin 27.3 L Mean Corpuscular Hemoglobin Concent 32.8 Mean Corpuscular Volume 83.0 Mean Platelet Volume 7.7 Monocytes # 0.7 Monocytes % 7.7 Neutrophils # 5.6 Neutrophils % 65.4 Nucleated Red Blood Cells # 0.0 Nucleated Red Blood Cells % 0.0 Platelet Count 299 # Potassium Level 4.2 Prothrombin Time 13.2 Prothrombin Time Ratio 1.0 Red Blood Count 3.24 L Red Cell Distribution Width 17.2 H Sodium Level 139 White Blood Count 8.6 Test 12/10/16 12:03 Bedside Glucose 234 H Medications Medications Current Medications Hydromorphone HCl (Dilaudid) 0.2 mg Q1H PRN IV PAIN LEVEL 1-5 Last administered on 12/06/16 05:36; Admin Dose 0.2 MG; Start 11/26/16 at 21:30 Hydromorphone HCl (Dilaudid) 0.4 mg Q1H PRN IV PAIN LEVEL 6-10 Last administered on 12/08/16 17:01; Admin Dose 0.4 MG; Start 11/26/16 at 21:30 Ondansetron HCl 2 mg 2 mg ONCE PRN IV Nausea; Start 11/26/16 at 21:30 Magnesium Sulfate/ Dextrose (Magnesium Sulfate 1 Gm/D5W) 100 ml @ 100 mls/hr PRN PRN IVPB Mag < 2; Start 11/27/16 at 04:30 Acetaminophen/ Hydrocodone Bitart ([place] (5/325)) 1 tab Q4H PRN PO PAIN LEVEL 1 -5 Last administered on 12/10/16 14:18; Admin Dose 1 TAB; Start 11/27/16 at 20: 00 Acetaminophen/ Hydrocodone Bitart ([place] (5/325)) 2 tab Q4H PRN PO PAIN LEVEL 6 -10 Last administered on 12/10/16 02:36; Admin Dose 2 TAB; Start 11/27/16 at 20 :00 Miscellaneous Information 1 ea NOTE XX ; Start 11/28/16 at 02:45 Glucose (Glutose) 15 gm Q15M PRN PO DECREASED GLUCOSE; Start 11/28/16 at 02:45 Glucose (Glutose) 22.5 gm Q15M PRN PO DECREASED GLUCOSE; Start 11/28/16 at 02: 45 Glucagon (Glucagen) 1 mg Q15M PRN IM DECREASED GLUCOSE; Start 11/28/16 at 02:45 Glucose (Glutose) 15 gm Q15M PRN BUCCAL DECREASED GLUCOSE; Start 11/28/16 at 02 :45 Insulin Glargine (Lantus) 15 unit QAM SC Last administered on 12/10/16 08:03; Admin Dose 15 UNIT; Start 11/28/16 at 14:30 Diagnostic Test (Pha) (Accucheck) 1 ea 02 XX Last administered on 12/10/16 02: 00; Admin Dose 1 EA; Start 12/01/16 at 02:00 Enoxaparin Sodium (Lovenox) 40 mg DAILY SC Last administered on 12/10/16 08:43 ; Admin Dose 40 MG; Start 12/02/16 at 09:00 Hydralazine HCl (Apresoline) 50 mg TID PO Last administered on 12/10/16 12:47 ; Admin Dose 50 MG; Start 12/03/16 at 03:00 Metoprolol Tartrate (Lopressor) 25 mg BID GTB Last administered on 12/10/16 08 :40; Admin Dose 25 MG; Start 12/03/16 at 23:00 Metoprolol Tartrate (Lopressor) 5 mg Q4 PRN IV HR> 100; Start 12/03/16 at 23:00 Pantoprazole (Protonix Tab) 40 mg DAILY@06 PO Last administered on 12/10/16 05 :58; Admin Dose 40 MG; Start 12/06/16 at 06:00 Zolpidem Tartrate (Ambien) 5 mg HS PRN PO INSOMNIA Last administered on 20:49; Admin Dose 5 MG; Start 12/05/16 at 22:30 Furosemide (Lasix) 40 mg DAILY PO Last administered on 12/10/16 08:41; Admin Dose 40 MG; Start 12/09/16 at 09:00 KILLIAN FLORES MD Dec 10, 2016 16:13
[2016-12-11] VITALS (8 sets, daily range): BP systolic 124–159; BP diastolic 58–70; PULSE 61–64; RESP 20
[2016-12-11] MEDS: PANTOPRAZOLE (EC) 40 MG TAB PO SCH (06:24)
[2016-12-11] MEDS: HYDROCODONE/APAP (5/325) TAB PO PRN ×2 (06:26→13:56)
[2016-12-11] MEDS: INSULIN ASPART [NOVOLOG] 3 ML PEN SC SCH ×4 (07:55→12:54)
[2016-12-11] MEDS: METOPROLOL 25 MG TAB GTB SCH (09:46)
[2016-12-11] MEDS: FUROSEMIDE 40 MG TAB PO SCH (09:47)
[2016-12-11] MEDS: INSULIN GLARGINE [LANtus] 3 ML PEN SC SCH (09:54)
[2016-12-11] MEDS: ENOXAPARIN 40 MG/0.4 ML SYG SC SCH (09:57)
--- NOTE | 2016-12-11 09:58 | CONS ---
Date/Time of Note Date/Time of Note DATE: 12/11/16 TIME: 09:55 Assessment/Plan Assessment/Plan Additional Assessment/Plan Assessment/plan; 1. Patient status post aortic valve surgery doing very well clinically. 2. Diabetes currently stable. 3. Hypertension currently well controlled. 4. Diminished breath sounds left lower lobe likely from thoracotomy and some element of atelectasis no pleural effusion could be identified. Recommendations; continue current supportive care continue current medications. Getting physical therapy. Consultation Date/Type/Reason Admit Date/Time Nov 26, 2016 at 10:43 Initial Consult Date 11/27/16 Type of Consultation: renal 24 HR Interval Summary Free Text/Dictation Patient is doing very well. Denies any shortness of breath. Any chest pain. Any fever. Any chills. Patient underwent ultrasound of the chest yesterday at either site no pleural effusion could be identified. Next General examination; middle aged, awake alert oriented 3. Currently in no distress. Exam/Review of Systems Vital Signs Vitals Vital Signs Date Time Temp Pulse Resp B/P Pulse Ox O2 Delivery O2 Flow Rate FiO2 12/11/16 08:05 64 12/11/16 07:22 97.5 20 144/68 98 12/08/16 04:17 2.0 12/07/16 20:20 Nasal Cannula Intake and Output 12/10/16 12/10/16 12/11/16 15:00 23:00 07:00 Intake Total 1960 ml 240 ml Balance 1960 ml 240 ml Exam HEENT examination; supple neck, no JVD, no lymphadenopathy, pharynx is clear, dentition. Pupils midsize. No neck masses felt. Next Chest examination; there is a well-healed sternal scar with a dressing applied. Decreased breath sounds left lower lobe. Right lung is clear. Left upper lobe is clear. S1-S2 audible no murmurs regular rhythm. Abdomen; soft, nondistended, no organomegaly, nontender, bowel sounds audible. Extremities; no peripheral edema pulses 1+ bilaterally. [employer]OR [employer] examination; no focal deficit. Results Result Diagram: 12/10/16 0620 12/10/16 0620 Results 24 hrs Laboratory Tests Test 12/10/16 12:03 12/10/16 17:15 12/10/16 21:29 12/11/16 08:13 Bedside Glucose 234 H 161 104 139 Medications Medications Current Medications Hydromorphone HCl (Dilaudid) 0.2 mg Q1H PRN IV PAIN LEVEL 1-5 Last administered on 12/06/16 05:36; Admin Dose 0.2 MG; Start 11/26/16 at 21:30 Hydromorphone HCl (Dilaudid) 0.4 mg Q1H PRN IV PAIN LEVEL 6-10 Last administered on 12/08/16 17:01; Admin Dose 0.4 MG; Start 11/26/16 at 21:30 Ondansetron HCl 2 mg 2 mg ONCE PRN IV Nausea; Start 11/26/16 at 21:30 Magnesium Sulfate/ Dextrose (Magnesium Sulfate 1 Gm/D5W) 100 ml @ 100 mls/hr PRN PRN IVPB Mag < 2; Start 11/27/16 at 04:30 Acetaminophen/ Hydrocodone Bitart ([place] (5/325)) 1 tab Q4H PRN PO PAIN LEVEL 1 -5 Last administered on 12/10/16 14:18; Admin Dose 1 TAB; Start 11/27/16 at 20: 00 Acetaminophen/ Hydrocodone Bitart ([place] (5/325)) 2 tab Q4H PRN PO PAIN LEVEL 6 -10 Last administered on 12/11/16 06:26; Admin Dose 2 TAB; Start 11/27/16 at 20 :00 Miscellaneous Information 1 ea NOTE XX ; Start 11/28/16 at 02:45 Glucose (Glutose) 15 gm Q15M PRN PO DECREASED GLUCOSE; Start 11/28/16 at 02:45 Glucose (Glutose) 22.5 gm Q15M PRN PO DECREASED GLUCOSE; Start 11/28/16 at 02: 45 Glucagon (Glucagen) 1 mg Q15M PRN IM DECREASED GLUCOSE; Start 11/28/16 at 02:45 Glucose (Glutose) 15 gm Q15M PRN BUCCAL DECREASED GLUCOSE; Start 11/28/16 at 02 :45 Insulin Glargine (Lantus) 15 unit QAM SC Last administered on 12/10/16 08:03; Admin Dose 15 UNIT; Start 11/28/16 at 14:30 Diagnostic Test (Pha) (Accucheck) 1 ea 02 XX Last administered on 12/10/16 02: 00; Admin Dose 1 EA; Start 12/01/16 at 02:00 Enoxaparin Sodium (Lovenox) 40 mg DAILY SC Last administered on 12/10/16 08:43 ; Admin Dose 40 MG; Start 12/02/16 at 09:00 Hydralazine HCl (Apresoline) 50 mg TID PO Last administered on 12/11/16 09:46 ; Admin Dose 50 MG; Start 12/03/16 at 03:00 Metoprolol Tartrate (Lopressor) 25 mg BID GTB Last administered on 12/11/16 09 :46; Admin Dose 25 MG; Start 12/03/16 at 23:00 Metoprolol Tartrate (Lopressor) 5 mg Q4 PRN IV HR> 100; Start 12/03/16 at 23:00 Pantoprazole (Protonix Tab) 40 mg DAILY@06 PO Last administered on 12/11/16 06 :24; Admin Dose 40 MG; Start 12/06/16 at 06:00 Zolpidem Tartrate (Ambien) 5 mg HS PRN PO INSOMNIA Last administered on 20:49; Admin Dose 5 MG; Start 12/05/16 at 22:30 Furosemide (Lasix) 40 mg DAILY PO Last administered on 12/11/16 09:47; Admin Dose 40 MG; Start 12/09/16 at 09:00 JYOTI GUEVARA Dec 11, 2016 09:58
--- NOTE | 2016-12-11 13:50 | PDOCDIS ---
Discharge Instructions CONDITION Patient Condition: Good HOME CARE INSTRUCTIONS: Special Diet: carb controlled ACTIVITY: Activity Restrictions: Slowly Increase Activity FOLLOW UP/APPOINTMENTS Appointments f/u own pcp [address] bond 1 wk see own press operator 10 days KILLIAN FLORES MD Dec 11, 2016 13:50
[2016-12-11] MEDS ORDERED: Hydrocodone/Apap (5/325) PO (13:53)
[2016-12-11] MEDS ORDERED: ASPI-664 PO (13:53)
[2016-12-11] MEDS ORDERED: FURO40TA4 PO (13:53)
[2016-12-11] MEDS ORDERED: APR50 PO (13:53)
[2016-12-11] MEDS ORDERED: METO-448 GTB (13:53)
--- NOTE | 2016-12-11 15:22 | CONS ---
Date/Time of Note Date/Time of Note DATE: 12/11/16 TIME: 15:22 Assessment/Plan Assessment/Plan Chief Complaint/Hosp Course S/P AVR CAD LOW EF ARRTHYTHMIA RENAL INSUFFICIENCY better lung infilterate better s/p pacemaker edema plan ss insulin per cardio pt/ot dc planning per dr bond home per dr bond Problems: Consultation Date/Type/Reason Admit Date/Time Nov 26, 2016 at 10:43 Initial Consult Date 11/27/16 Type of Consultation: renal 24 HR Interval Summary Constitutional: no complaints Exam/Review of Systems Vital Signs Vitals Vital Signs Date Time Temp Pulse Resp B/P Pulse Ox O2 Delivery O2 Flow Rate FiO2 12/11/16 12:03 61 12/11/16 11:26 98.4 20 124/58 98 12/08/16 04:17 2.0 12/07/16 20:20 Nasal Cannula Intake and Output 12/10/16 12/10/16 12/11/16 15:00 23:00 07:00 Intake Total 1960 ml 240 ml Balance 1960 ml 240 ml Exam Respiratory: clear to auscultation Cardiovascular: regular rate and rhythm Gastrointestinal: soft Results Result Diagram: 12/10/16 0620 12/10/16 0620 Results 24 hrs Laboratory Tests Test 12/10/16 17:15 12/10/16 21:29 12/11/16 08:13 12/11/16 12:20 Bedside Glucose 161 104 139 228 H Medications Medications Current Medications Hydromorphone HCl (Dilaudid) 0.2 mg Q1H PRN IV PAIN LEVEL 1-5 Last administered on 12/06/16 05:36; Admin Dose 0.2 MG; Start 11/26/16 at 21:30 Hydromorphone HCl (Dilaudid) 0.4 mg Q1H PRN IV PAIN LEVEL 6-10 Last administered on 12/08/16 17:01; Admin Dose 0.4 MG; Start 11/26/16 at 21:30 Ondansetron HCl 2 mg 2 mg ONCE PRN IV Nausea; Start 11/26/16 at 21:30 Magnesium Sulfate/ Dextrose (Magnesium Sulfate 1 Gm/D5W) 100 ml @ 100 mls/hr PRN PRN IVPB Mag < 2; Start 11/27/16 at 04:30 Acetaminophen/ Hydrocodone Bitart ([place] (5/325)) 1 tab Q4H PRN PO PAIN LEVEL 1 -5 Last administered on 12/10/16 14:18; Admin Dose 1 TAB; Start 11/27/16 at 20: 00 Acetaminophen/ Hydrocodone Bitart ([place] (5/325)) 2 tab Q4H PRN PO PAIN LEVEL 6 -10 Last administered on 12/11/16 13:56; Admin Dose 2 TAB; Start 11/27/16 at 20 :00 Miscellaneous Information 1 ea NOTE XX ; Start 11/28/16 at 02:45 Glucose (Glutose) 15 gm Q15M PRN PO DECREASED GLUCOSE; Start 11/28/16 at 02:45 Glucose (Glutose) 22.5 gm Q15M PRN PO DECREASED GLUCOSE; Start 11/28/16 at 02: 45 Glucagon (Glucagen) 1 mg Q15M PRN IM DECREASED GLUCOSE; Start 11/28/16 at 02:45 Glucose (Glutose) 15 gm Q15M PRN BUCCAL DECREASED GLUCOSE; Start 11/28/16 at 02 :45 Insulin Glargine (Lantus) 15 unit QAM SC Last administered on 12/11/16 09:54; Admin Dose 15 UNIT; Start 11/28/16 at 14:30 Diagnostic Test (Pha) (Accucheck) 1 ea 02 XX Last administered on 12/10/16 02: 00; Admin Dose 1 EA; Start 12/01/16 at 02:00 Enoxaparin Sodium (Lovenox) 40 mg DAILY SC Last administered on 12/11/16 09:57 ; Admin Dose 40 MG; Start 12/02/16 at 09:00 Hydralazine HCl (Apresoline) 50 mg TID PO Last administered on 12/11/16 13:56 ; Admin Dose 50 MG; Start 12/03/16 at 03:00 Metoprolol Tartrate (Lopressor) 25 mg BID GTB Last administered on 12/11/16 09 :46; Admin Dose 25 MG; Start 12/03/16 at 23:00 Metoprolol Tartrate (Lopressor) 5 mg Q4 PRN IV HR> 100; Start 12/03/16 at 23:00 Pantoprazole (Protonix Tab) 40 mg DAILY@06 PO Last administered on 12/11/16 06 :24; Admin Dose 40 MG; Start 12/06/16 at 06:00 Zolpidem Tartrate (Ambien) 5 mg HS PRN PO INSOMNIA Last administered on 20:49; Admin Dose 5 MG; Start 12/05/16 at 22:30 Furosemide (Lasix) 40 mg DAILY PO Last administered on 12/11/16 09:47; Admin Dose 40 MG; Start 12/09/16 at 09:00 KILLIAN FLORES MD Dec 11, 2016 15:22
== END 2016-12-11 16:55 | disposition home or self-care (01) | DRG 219 ==
LOC: REC 11-26 10:43 → ICU 11-26 20:24 → TEL 12-04 23:37
PROVIDERS: ADMIT Thoracic Surgery (Cardiothoracic Vascular Surgery); ATTEND Thoracic Surgery (Cardiothoracic Vascular Surgery)
PROC: 5A1223Z Performance of Cardiac Pacing, Continuous (ICD-10-PCS; 2016-11-26)
PROC: 5A1221Z Performance of Cardiac Output, Continuous (ICD-10-PCS; 2016-11-26)
PROC: 5A2204Z Restoration of Cardiac Rhythm, Single (ICD-10-PCS; 2016-11-26)
PROC: 02RF08Z Replacement of Aortic Valve with Zooplastic Tissue, Open Approach (ICD-10-PCS; principal; 2016-11-26 14:00)
PROC: 0JH606Z Insertion of Pacemaker, Dual Chamber into Chest Subcutaneous Tissue and Fascia, Open Approach (ICD-10-PCS; 2016-12-03)
PROC: 02H63JZ Insertion of Pacemaker Lead into Right Atrium, Percutaneous Approach (ICD-10-PCS; 2016-12-03)
PROC: 02HK3JZ Insertion of Pacemaker Lead into Right Ventricle, Percutaneous Approach (ICD-10-PCS; 2016-12-03)
DX: I35.0 Nonrheumatic aortic (valve) stenosis (principal); J96.90 Respiratory failure, unspecified, unspecified whether with hypoxia or hypercapnia; I44.2 Atrioventricular block, complete; N17.9 Acute kidney failure, unspecified; I42.8 Other cardiomyopathies; I11.0 Hypertensive heart disease with heart failure; I50.9 Heart failure, unspecified; E11.9 Type 2 diabetes mellitus without complications; I25.10 Atherosclerotic heart disease of native coronary artery without angina pectoris; R91.8 Other nonspecific abnormal finding of lung field; Z79.84 Long term (current) use of oral hypoglycemic drugs
CPT/HCPCS: 36430; 36592; 36600; 71010; 71023; 76604; 80048; 80053; 81001; 81003; 82803; 82962; 83036; 83735; 84100; 84132; 84703; 85025; 85610; 85730; 86644; 86850; 86900; 86901; 86920; 86945; 87081; 88304; 88311; 93005; 93306; 93312; 94002; 94003; 94660; 94770; 97116; 97163; 97530; J1940; C9113; J0171; J0690; J0696; J1170; J1265; J1644; J1650; J1815; J2150; J2250; J2370; J2405; J2720; J3010; J3370; J3475; J3480; J7050; J7070; P9016; P9035; P9045; P9047; P9059; Q9967